=== PATIENT | female | born 1950 | race Caucasian/White ===

== ENCOUNTER 2018-05-12 11:35 | Emergency (ER) | payer MEDICARE, BC ==
--- NOTE | 2018-05-12 13:12 | EDM.PDOC ---
ED HPI GENERAL MEDICAL PROBLEM - General Chief Complaint: General Stated Complaint: LOW HEMOGLOBIN Time Seen by Provider: 05/12/18 12:46 Source of Information: Reports: Patient History Limitations: Reports: No Limitations - History of Present Illness INITIAL COMMENTS - FREE TEXT/NARRATIVE: 67-year-old female presents from the walk-in clinic for evaluation and treatment of a low hemoglobin. Patient was found to have a hemoglobin of 6.4 and sent over to us for further management and care. There patient reports in September she was in [place] and found to have a low hemoglobin. She was hospitalized. She had an EGD and colonoscopy. She states at that time she was told she had a hiatal hernia. She did not require any intervention. She is not on any blood thinners. She reports she did receive several units of blood while in [place]. She reports the end of September her hemoglobin was 12.2. She is not on any iron supplementation at this time. Patient reports current symptoms of fatigue and dyspnea on exertion. She denies any chest pain, nausea, vomiting, lightheadedness, dizziness or syncope. She denies any diarrhea. Reports her stools have been darker but has not appreciated any melena or hematochezia. She reports pain in her bilateral, states this is a chronic problem and they're questioning if she is developing some neuropathy. No swelling in her legs. Primary care provider is Elisa Daniel. Bilateral Lower Leg Pain Score (Numeric/FACES): 10 - Related Data Allergies Allergy/AdvReac Type Severity Reaction Status Date / Time Penicillins Allergy Rash Verified 02/27/16 11:45 Home Meds: Home Meds Phenytoin Sodium Extended [Dilantin] 330 mg PO BEDTIME 02/27/16 [History] Ferrous Sulfate 325 mg PO TID #30 tablet 05/12/18 [Rx] Past Medical History Cardiovascular History: Reports: Pacemaker Neurological History: Reports: Seizure Hematologic History: Reports: Blood Transfusion(s), Other (See Below) Social & Family History - Tobacco Use Smoking Status *Q: Never Smoker - Caffeine Use Caffeine Use: Reports: None - Recreational Drug Use Recreational Drug Use: No ED ROS GENERAL - Review of Systems Review Of Systems: See Below Cardiovascular: Reports: Dyspnea on Exertion. Denies: Chest Pain GI/Abdominal: Denies: Abdominal Pain, Bloody Stool, Diarrhea, Hematochezia, Melena, Nausea, Vomiting Musculoskeletal: Reports: Leg Pain (bilateral, chronic) Neurological: Denies: Dizziness, Syncope ED EXAM, GENERAL - Physical Exam Exam: See Below Exam Limited By: No Limitations General Appearance: Alert, WD/WN, No Apparent Distress Nose: Normal Inspection Throat/Mouth: Normal Inspection, Normal Voice, No Airway Compromise Respiratory/Chest: No Respiratory Distress, Lungs Clear, Normal Breath Sounds Cardiovascular: Normal Peripheral Pulses, Regular Rate, Rhythm, No Murmur GI/Abdominal: Normal Bowel Sounds, Soft, Non-Tender Rectal (Female) Exam: Normal Exam, Normal Rectal Tone, Heme + Stool (Weakly positive) Neurological: Alert, Oriented, Normal Cognition Psychiatric: Normal Affect, Normal Mood Skin Exam: Warm, Dry, Pallor (Slight, not terribly remarkable) EKG INTERPRETATION EKG Date: 05/12/18 Time: 13:22 Rhythm: NSR Rate (Beats/Min): 86 [place]: Normal P-Wave: Present QRS: Normal ST-T: Normal QT: Normal EKG Interpretation Comments: NSR at 86 bpm. No acute changes. Reviewed by myself and Dr. Rosen. Course - Vital Signs Last Recorded V/S: Last Vital Signs Temp 98.6 F 05/12/18 19:28 Pulse 90 05/12/18 17:51 Resp 18 05/12/18 19:28 BP 136/66 05/12/18 19:28 Pulse Ox 96 05/12/18 19:28 Orthostatic Blood Pressure [ 142/70 Standing] Orthostatic Blood Pressure [ 139/75 Sitting] Orthostatic Blood Pressure [ 136/64 Supine] - Orders/Labs/Meds Labs: Laboratory Tests 05/12/18 05/12/18 05/12/18 Range/Units 12:50 12:50 12:50 WBC 5.11 (3.98-10.04) K/mm3 RBC 3.17 L (3.98-5.22) M/mm3 Hgb 5.8 L* (11.2-15.7) gm/L Hct 21.5 L (34.1-44.9) % MCV 67.8 L (79.4-94.8) fl MCH 18.3 L (25.6-32.2) pg MCHC 27.0 L (32.2-35.5) g/dl RDW Std Deviation 44.2 (36.4-46.3) fL Plt Count 341 (182-369) K/mm3 MPV 8.7 L (9.4-12.3) fl Neut % (Auto) 53.9 (34.0-71.1) % Lymph % (Auto) 34.1 (19.3-51.7) % Island % (Auto) 10.2 (4.7-12.5) % Eos % (Auto) 0.8 (0.7-5.8) Baso % (Auto) 0.8 (0.1-1.2) % Neut # (Auto) 2.76 (1.56-6.13) K/mm3 Lymph # (Auto) 1.74 (1.18-3.74) K/mm3 Island # (Auto) 0.52 H (0.24-0.36) K/mm3 Eos # (Auto) 0.04 (0.04-0.36) K/mm3 Baso # (Auto) 0.04 (0.01-0.08) K/mm3 Manual Slide Review Abnormal smear Iron (50-170) ug/dL TIBC (100-400) ug/dL % Saturation (20-55) % Transferrin (202-364) mg/dL Ferritin (8-252) ng/ml Troponin I 0.018 (0.00-0.056) ng/mL Blood Type A POSITIVE Gel Antibody Screen Negative Crossmatch See Detail 05/12/18 05/12/18 Range/Units 12:50 12:50 WBC (3.98-10.04) K/mm3 RBC (3.98-5.22) M/mm3 Hgb (11.2-15.7) gm/L Hct (34.1-44.9) % MCV (79.4-94.8) fl MCH (25.6-32.2) pg MCHC (32.2-35.5) g/dl RDW Std Deviation (36.4-46.3) fL Plt Count (182-369) K/mm3 MPV (9.4-12.3) fl Neut % (Auto) (34.0-71.1) % Lymph % (Auto) (19.3-51.7) % Island % (Auto) (4.7-12.5) % Eos % (Auto) (0.7-5.8) Baso % (Auto) (0.1-1.2) % Neut # (Auto) (1.56-6.13) K/mm3 Lymph # (Auto) (1.18-3.74) K/mm3 Island # (Auto) (0.24-0.36) K/mm3 Eos # (Auto) (0.04-0.36) K/mm3 Baso # (Auto) (0.01-0.08) K/mm3 Manual Slide Review Iron 8 L (50-170) ug/dL TIBC 429 H (100-400) ug/dL % Saturation 2 L (20-55) % Transferrin 343 (202-364) mg/dL Ferritin 2 L (8-252) ng/ml Troponin I (0.00-0.056) ng/mL Blood Type Gel Antibody Screen Crossmatch Meds: Medications Discontinued Medications Generic Name Dose Route Start Last Admin Trade Name Freq PRN Reason Stop Dose Admin Sodium Chloride Confirm 05/12/18 14:49 05/12/18 15:17 Normal Saline Administered 05/12/18 14:50 Not Given Dose 500 mls @ as directed .ROUTE .STK-MED ONE - Re-Assessments/Exams Free Text/Narrative Re-Assessment/Exam: 05/12/18 18:26 Patient brought over labs from the [facility] and they were remarkable for the following, white blood cell count of 5.3, hemoglobin of 6.4 platelet count of 370. Magnesium 2.0. Glucose of 202, creatinine of 0.8, BUN of 11, sodium 142 , potassium 4.4 and a chloride of 107. Anion gap is 17. Liver enzymes are within normal limits. Patient's Hemoccult is weakly positive. She's not had any diarrhea her last bowel movement was earlier today. I do not feel that she is having acute GI bleed. she did have an EGD and colonoscopy in September in [place]. She is not on a blood thinners. She is slightly orthostatic with her heart rate increasing. I reviewed the labs and EKG with the patient. I feel that mostly she has more iron deficiency anemia and recommend we start her on iron supplementation. She then tells me that she has a family history of anemia. Reports her mother was chronically anemic and received frequent blood transfusions. She mentioned several family members who have struggled with anemia. At this point she received about 1-1/2 units. Will give her the remainder the half of the remaining unit. Plan to discharge her home. She is reporting at this time that the pain that is chronic in her legs is actually improving. I question if this is actually what is causing the pain rather than like a vitamin deficiency. I recommend a close follow-up in the clinic this week. She is agreeable to this. Discharge instructions as documented. Departure - Departure Time of Disposition: 18:33 Disposition: Home, Self-Care 01 Condition: Fair Clinical Impression: Anemia, Iron deficiency - Discharge Information *PRESCRIPTION DRUG MONITORING PROGRAM REVIEWED*: No *COPY OF PRESCRIPTION DRUG MONITORING REPORT IN PATIENT WOJCIECH: No Prescriptions: Ferrous Sulfate 325 mg PO TID #30 tablet Instructions: Blood Transfusion, Adult, [id number] Referrals: Elisa Daniel PA-C [Primary Care Provider] - Forms: ED Department Discharge Additional Instructions: Take the iron as prescribed. 1 tab 3 times a day. Recommend you take this with fluids containing vitamin C, such as oranges, as this will help increase absorption. Taking iron can be constipating. If you experience any of this recommended over- the-counter stool softener such as MiraLAX. Do not be alarmed if the iron makes her stools dark in color. Follow-up with your primary care provider this week for recheck of your symptoms. Make sure you're drinking plenty of fluids. Please return to the ER for symptoms change or worsen.
[2018-05-12] MEDS ORDERED: Sodium Chloride 0.9% 500 ML ONE (14:49)
[2018-05-12 19:29] VITALS: BP 136/66
== END 2018-05-12 19:34 | disposition home or self-care (01) ==
LOC: JD.ED 11:35
DX: D50.9 Iron deficiency anemia, unspecified (principal); Z88.0 Allergy status to penicillin
CPT/HCPCS: 36415; 36430; 82728; 83540; 84466; 84484; 85025; 86850; 86900; 86901; 86922; 93005; 99284; P9016; 93010

== ENCOUNTER 2020-06-22 17:36 | Emergency (ER) | payer MEDICARE, BC ==
--- NOTE | 2020-06-22 18:17 | EDM.PDOC ---
ED HPI GENERAL MEDICAL PROBLEM - General Chief Complaint: Fever Stated Complaint: FEVER,CHILLS,BODY ACHES Time Seen by Provider: 06/22/20 17:41 Source of Information: Reports: Patient History Limitations: Reports: No Limitations - History of Present Illness INITIAL COMMENTS - FREE TEXT/NARRATIVE: 69-year-old female presents to the emergency department complaints of fever, body aches, cough, shortness of breath, and decreased appetite. Patient states this started 8 days ago. She states she went out to shovel snow that morning and by the afternoon she had severe body aches and a sore throat. She states she laid in bed and could hardly move due to the body aches. She then developed fever and chills that evening and shortness of breath and cough. She states she has not had much of an appetite since then and has lost her sense of taste however she does still have smell. She denies any nausea vomiting or diarrhea associated with this. 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 - Related Data Allergies Allergy/AdvReac Type Severity Reaction Status Date / Time Penicillins Allergy Rash Verified 06/22/20 17:44 Home Meds: Home Meds Phenytoin Sodium Extended [Dilantin] 330 mg PO BEDTIME 02/27/16 [History] Ferrous Sulfate 325 mg PO TID #30 tablet 05/12/18 [Rx] Cholecalciferol (Vitamin D3) [Vitamin D] 5,000 unit PO DAILY 06/22/20 [History] Folic Acid 0.8 mg PO DAILY 06/22/20 [History] Vitamin B Complex 1 each PO DAILY 06/22/20 [History] Vitamin E 1,000 unit PO DAILY 06/22/20 [History] Past Medical History Cardiovascular History: Reports: Pacemaker Neurological History: Reports: Seizure Hematologic History: Reports: Anemia, Blood Transfusion(s), Other (See Below) - Past Surgical History Cardiovascular Surgical History: Reports: Pacer Social & Family History - Tobacco Use Tobacco Use Status *Q: Never Tobacco User - Caffeine Use Caffeine Use: Reports: None - Recreational Drug Use Recreational Drug Use: No ED ROS GENERAL - Review of Systems Review Of Systems: See Below Constitutional: Reports: Fever, Chills, Malaise, Decreased Appetite HEENT: Reports: No Symptoms, Glasses Respiratory: Reports: Shortness of Breath, Cough. Denies: Pleuritic Chest Pain, Sputum Cardiovascular: Reports: Dyspnea on Exertion. Denies: Chest Pain, Edema, Lightheadedness, Palpitations Endocrine: Reports: No Symptoms GI/Abdominal: Reports: No Symptoms. Denies: Abdominal Pain, Constipation, Diarrhea, Nausea, Vomiting : Reports: No Symptoms Musculoskeletal: Reports: Other (generalized body aches) Skin: Reports: No Symptoms Neurological: Reports: No Symptoms Psychiatric: Reports: No Symptoms Hematologic/Lymphatic: Reports: No Symptoms Immunologic: Reports: No Symptoms ED EXAM, GENERAL - Physical Exam Exam: See Below Exam Limited By: No Limitations General Appearance: Alert, WD/WN, No Apparent Distress Eye Exam: Bilateral Eye: PERRL Ears: Normal External Exam, Hearing Grossly Normal Nose: Normal Inspection Throat/Mouth: Normal Inspection, Normal Voice, No Airway Compromise Head: Atraumatic, Normocephalic Neck: Normal Inspection, Supple, Non-Tender, Full Range of Motion Respiratory/Chest: No Respiratory Distress, No Accessory Muscle Use, Chest Non- Tender, Crackles (left posterior lobe). No: Lungs Clear, Normal Breath Sounds Cardiovascular: Normal Peripheral Pulses, Regular Rate, Rhythm, No Edema, No Murmur Peripheral Pulses: 2+: Radial (L), Radial (R) GI/Abdominal: Normal Bowel Sounds, Soft, Non-Tender, No Distention (Female) Exam: Deferred Rectal (Female) Exam: Deferred Back Exam: Normal Inspection, Full Range of Motion Extremities: Normal Inspection, Normal Range of Motion, Non-Tender, No Pedal Edema, Normal Capillary Refill Neurological: Alert, Oriented, Normal Cognition Psychiatric: Normal Affect, Normal Mood Skin Exam: Warm, Dry, Intact, Normal Color, No Rash Lymphatic: No Adenopathy #1 Interpretation EKG Date: 06/22/20 Time: 18:29 Rhythm: NSR Rate (Beats/Min): [address]: Normal P-Wave: Present QRS: Normal ST-T: Normal QT: Normal EKG Interpretation Comments: Per Dr. Nguyễn interpretation: Sinus rhythm at 87, borderline left axis deviation, low voltage, extremity leads, abnormal R wave progression, late transition Course - Vital Signs Text/Narrative:: Upon assessment patient is febrile. She does admit to shortness of breath with exertion. And a cough without sputum production. Lung sounds have crackles noted to the left posterior lobe. I have ordered routine labs and a covid swab, cxr, ekg. Last Recorded V/S: Last Vital Signs Temp 100.2 F 06/22/20 20:49 Pulse 80 06/22/20 20:49 Resp 22 H 06/22/20 20:49 BP 117/67 06/22/20 20:49 Pulse Ox 92 L 06/22/20 20:49 - Orders/Labs/Meds Orders: Active Orders 24 hr Category Date Time Status EKG Documentation Completion [RC] STAT Care 06/22/20 18:06 Active Vital Signs [RC] Q15M Care 06/22/20 18:37 Active Chest 1V Frontal [CR] Stat Exams 06/22/20 18:07 Taken EPINEPHrine [Adrenalin] Med 06/22/20 18:37 Active 0.3 mg IM ONETIME PRN Famotidine [Pepcid] Med 06/22/20 18:37 Active 20 mg IVPUSH ONETIME PRN Sodium Chloride 0.9% [Saline Flush] Med 06/22/20 18:45 Active 30 ml FLUSH ASDIRECTED diphenhydrAMINE [Benadryl] Med 06/22/20 18:37 Active 50 mg IVPUSH ONETIME PRN methylPREDNISolone Sod Succ [Solu-MEDROL] Med 06/22/20 18:37 Active 125 mg IVPUSH ONETIME PRN Isolation [COMM] Routine Oth 06/22/20 18:06 Ordered Medication Orders Diphenhydramine HCl (Benadryl) 50 mg IVPUSH ONETIME PRN PRN Reason: hypersensitivity reaction Epinephrine HCl (Adrenalin) 0.3 mg IM ONETIME PRN PRN Reason: hypersensitivity reaction Famotidine (Pepcid) 20 mg IVPUSH ONETIME PRN PRN Reason: hypersensitivity reaction Methylprednisolone Sodium Succinate (Solu-Medrol) 125 mg IVPUSH ONETIME PRN PRN Reason: hypersensitivity reaction Sodium Chloride (Saline Flush) 30 ml FLUSH ASDIRECTED [facility] Admin: 06/22/20 20:51 Dose: 30 ml Documented by: JEFF Labs: Laboratory Tests 06/22/20 06/22/20 06/22/20 Range/Units 17:45 18:20 18:20 WBC 4.29 (3.98-10.04) K/mm3 RBC 4.60 (3.98-5.22) M/mm3 Hgb 13.9 D (11.2-15.7) gm/dl Hct 43.0 (34.1-44.9) % MCV 93.5 D (79.4-94.8) fl MCH 30.2 (25.6-32.2) pg MCHC 32.3 (32.2-35.5) g/dl RDW Std Deviation 42.8 (36.4-46.3) fL Plt Count 186 D (182-369) K/mm3 MPV 9.1 L (9.4-12.3) fl Neutrophils % (Manual) 70 H (40-60) % Band Neutrophils % 1 (0-10) % Lymphocytes % (Manual) 18 L (20-40) % Atypical Lymphs % 0 % Monocytes % (Manual) 11 H (2-10) % Eosinophils % (Manual) 0 L (0.7-5.8) % Basophils % (Manual) 0 L (0.1-1.2) Platelet Estimate Adequate RBC Morph Comment Normal PT (9.7-12.0) SECONDS INR APTT (21.7-31.4) SECONDS D-Dimer, Quantitative (0.19-0.50) mg/L Sodium (136-145) mEq/L Potassium (3.5-5.1) mEq/L Chloride (98-107) mEq/L Carbon Dioxide (21-32) mEq/L Anion Gap (5-15) BUN (7-18) mg/dL Creatinine (0.55-1.02) mg/dL Est Cr Clr Drug Dosing mL/min Estimated GFR (MDRD) (>60) mL/min BUN/Creatinine Ratio (14-18) Glucose (80-115) mg/dL Lactic Acid (0.4-2.0) mmol/L Calcium (8.5-10.1) mg/dL Magnesium (1.8-2.4) mg/dl Ferritin (8-252) ng/ml Total Bilirubin (0.2-1.0) mg/dL AST (15-37) U/L ALT (14-59) U/L Alkaline Phosphatase (46-116) U/L Lactate Dehydrogenase (81-234) U/L Troponin I (0.00-0.056) ng/mL C-Reactive Protein 12.8 H* (<1.0) mg/dL NT-Pro-B Natriuret Pep (0-125) pg/mL Total Protein (6.4-8.2) g/dl Albumin (3.4-5.0) g/dl Globulin gm/dL Albumin/Globulin Ratio (1-2) Influenza Type A RNA Negative (NEGATIVE) Influenza Type B RNA Negative (NEGATIVE) SARS-CoV-2 RNA (MILI) Positive H (NEGATIVE) 06/22/20 06/22/20 06/22/20 Range/Units 18:20 18:20 18:20 WBC (3.98-10.04) K/mm3 RBC (3.98-5.22) M/mm3 Hgb (11.2-15.7) gm/dl Hct (34.1-44.9) % MCV (79.4-94.8) fl MCH (25.6-32.2) pg MCHC (32.2-35.5) g/dl RDW Std Deviation (36.4-46.3) fL Plt Count (182-369) K/mm3 MPV (9.4-12.3) fl Neutrophils % (Manual) (40-60) % Band Neutrophils % (0-10) % Lymphocytes % (Manual) (20-40) % Atypical Lymphs % % Monocytes % (Manual) (2-10) % Eosinophils % (Manual) (0.7-5.8) % Basophils % (Manual) (0.1-1.2) Platelet Estimate RBC Morph Comment PT 10.5 (9.7-12.0) SECONDS INR 0.98 APTT 28.8 (21.7-31.4) SECONDS D-Dimer, Quantitative 0.71 H (0.19-0.50) mg/L Sodium 137 (136-145) mEq/L Potassium 4.1 (3.5-5.1) mEq/L Chloride 101 (98-107) mEq/L Carbon Dioxide 25 (21-32) mEq/L Anion Gap 15.1 H (5-15) BUN 15 (7-18) mg/dL Creatinine 0.8 (0.55-1.02) mg/dL Est Cr Clr Drug Dosing 51.75 mL/min Estimated GFR (MDRD) > 60 (>60) mL/min BUN/Creatinine Ratio 18.8 H (14-18) Glucose 122 H (80-115) mg/dL Lactic Acid (0.4-2.0) mmol/L Calcium 8.7 (8.5-10.1) mg/dL Magnesium 2.1 (1.8-2.4) mg/dl Ferritin (8-252) ng/ml Total Bilirubin 0.3 (0.2-1.0) mg/dL AST 116 H (15-37) U/L ALT 108 H (14-59) U/L Alkaline Phosphatase 97 (46-116) U/L Lactate Dehydrogenase 335 H (81-234) U/L Troponin I 0.023 (0.00-0.056) ng/mL C-Reactive Protein (<1.0) mg/dL NT-Pro-B Natriuret Pep 108 (0-125) pg/mL Total Protein 7.3 (6.4-8.2) g/dl Albumin 3.1 L (3.4-5.0) g/dl Globulin 4.2 gm/dL Albumin/Globulin Ratio 0.7 L (1-2) Influenza Type A RNA (NEGATIVE) Influenza Type B RNA (NEGATIVE) SARS-CoV-2 RNA (MILI) (NEGATIVE) 06/22/20 06/22/20 Range/Units 18:20 18:20 WBC (3.98-10.04) K/mm3 RBC (3.98-5.22) M/mm3 Hgb (11.2-15.7) gm/dl Hct (34.1-44.9) % MCV (79.4-94.8) fl MCH (25.6-32.2) pg MCHC (32.2-35.5) g/dl RDW Std Deviation (36.4-46.3) fL Plt Count (182-369) K/mm3 MPV (9.4-12.3) fl Neutrophils % (Manual) (40-60) % Band Neutrophils % (0-10) % Lymphocytes % (Manual) (20-40) % Atypical Lymphs % % Monocytes % (Manual) (2-10) % Eosinophils % (Manual) (0.7-5.8) % Basophils % (Manual) (0.1-1.2) Platelet Estimate RBC Morph Comment PT (9.7-12.0) SECONDS INR APTT (21.7-31.4) SECONDS D-Dimer, Quantitative (0.19-0.50) mg/L Sodium (136-145) mEq/L Potassium (3.5-5.1) mEq/L Chloride (98-107) mEq/L Carbon Dioxide (21-32) mEq/L Anion Gap (5-15) BUN (7-18) mg/dL Creatinine (0.55-1.02) mg/dL Est Cr Clr Drug Dosing mL/min Estimated GFR (MDRD) (>60) mL/min BUN/Creatinine Ratio (14-18) Glucose (80-115) mg/dL Lactic Acid 0.9 (0.4-2.0) mmol/L Calcium (8.5-10.1) mg/dL Magnesium (1.8-2.4) mg/dl Ferritin 279 H (8-252) ng/ml Total Bilirubin (0.2-1.0) mg/dL AST (15-37) U/L ALT (14-59) U/L Alkaline Phosphatase (46-116) U/L Lactate Dehydrogenase (81-234) U/L Troponin I (0.00-0.056) ng/mL C-Reactive Protein (<1.0) mg/dL NT-Pro-B Natriuret Pep (0-125) pg/mL Total Protein (6.4-8.2) g/dl Albumin (3.4-5.0) g/dl Globulin gm/dL Albumin/Globulin Ratio (1-2) Influenza Type A RNA (NEGATIVE) Influenza Type B RNA (NEGATIVE) SARS-CoV-2 RNA (MILI) (NEGATIVE) Meds: Medications Generic Name Dose Route Start Last Admin Trade Name Freq PRN Reason Stop Dose Admin Diphenhydramine HCl 50 mg 06/22/20 18:37 Benadryl IVPUSH ONETIME PRN hypersensitivity reaction Epinephrine HCl 0.3 mg 06/22/20 18:37 Adrenalin IM ONETIME PRN hypersensitivity reaction Famotidine 20 mg 06/22/20 18:37 Pepcid IVPUSH ONETIME PRN hypersensitivity reaction Methylprednisolone Sodium Succinate 125 mg 06/22/20 18:37 Solu-Medrol IVPUSH ONETIME PRN hypersensitivity reaction Sodium Chloride 30 ml 06/22/20 18:45 06/22/20 20:51 Saline Flush FLUSH 30 ml ASDIRECTED JUAN Administration Discontinued Medications Generic Name Dose Route Start Last Admin Trade Name Abhijit PRN Reason Stop Dose Admin Acetaminophen 650 mg 06/22/20 18:19 06/22/20 18:29 Tylenol PO 06/22/20 18:20 650 mg NOW ONE Administration Bamlanivimab 700 mg/ Sodium 270 mls @ 270 mls/hr 06/22/20 18:37 06/22/20 19:40 Chloride IV 06/22/20 18:38 270 mls/hr ONETIME ONE Administration Protocol - Radiology Interpretation Free Text/Narrative:: Per radiologist Impression: 1. Patchy areas of increased density. Findings most likely represent areas of pneumonia. Please rule out COVID disease. 2. Other findings as noted above which are chronic. - Re-Assessments/Exams Free Text/Narrative Re-Assessment/Exam: 06/22/20 18:45 Patient's Covid swab is positive. Still waiting for routine labs to come back however patient's O2 sats are 92% on room air. I have spoken with her to provide information about Bamlanivimab treatment for herself. I offered her the patient and caregiver EUA Bamlanivimab fact sheet. He stated the drug has been approved by an emergency use authorization process and has not fully been FDA reviewed or approved. The patient meets the EUA requirements. She does have a history of anemia and pacemaker placement. She is over the age of 65. I discussed there are other potential treatment options that are currently not FDA approved to treat COVID-19. Offered opportunity to ask questions and all questions were answered. The patient voiced understanding and agreed to proceed with treatment for herself. 06/22/20 19:43 Labs reveal a WBC of 4.29, hemoglobin 13.9, hematocrit 43.0, D-dimer 0.71, sodium 137, potassium 4.1, anion gap 15.1, BUN 15, creatinine 0.8, glucose 122, lactic acid 0.9, magnesium 2.1, ferritin 279, AST 116, ALT 108, LDH 335, 6 troponin 0 0.023, C-reactive protein 12.8, Elevation in D-dimer, ferritin, liver enzymes, LDH, troponin and C-reactive protein all likely due to inflammatory response of Covid. I am not going to do a CTA on this patient as her O2 saturations are 92% on room air and she did test positive for Covid. 06/22/20 20:55 Bamlanivimab infusion is complete. Will monitor her for about the next hour. 06/22/20 20:[address] Orta preliminary Impression: 1. Patchy areas of increased density. Findings most likely represent areas of pneumonia. Please rule out COVID disease. 2. Other findings as noted above which are chronic. Portable chest x-ray 1 view V rad impression: 1. Atelectatic and/or early infiltrative changes noted within both lung bases. 2. Trace left pleural effusion. Departure - Departure Time of Disposition: 21:45 Disposition: Home, Self-Care 01 Condition: Fair Clinical Impression: COVID-19 - Discharge Information Instructions: COVID-19 Frequently Asked Questions, Prone Position Therapy, COVID-19: Quarantine vs. Isolation - [facility] Referrals: Elisa Daniel PA-C [Primary Care Provider] - Forms: ED Department Discharge Additional Instructions: You were seen in the emergency department today with complaints of shortness of breath, cough, loss of taste, decreased appetite and general malaise. Lab tests were completed and you did test positive for Covid. Your chest x-ray showed also showed pneumonia in both lungs however this is likely viral and due to Covid. Your oxygen levels have been greater than 90% she will not not be treated for pneumonia at this time. You were given Bamlanivimab, the monoclonal antibody approved for emergency use for COVID-19. This medication should shorten the duration and severity of the illness. Go home and rest. May take Tylenol or ibuprofen for discomfort. Increase your fluid intake. Eat frequent small meals. If you become significantly short of breath or your condition worsens or changes, do not hesitate to return to the emergency department. Sepsis Event Note (ED) - Evaluation Sepsis Screening Result: Possible Sepsis Risk - Focused Exam Vital Signs: Vital Signs Temp Pulse Resp BP Pulse Ox 06/22/20 20:49 100.2 F 80 22 H 117/67 92 L 06/22/20 20:15 100.1 F 75 23 H 131/65 92 L 06/22/20 20:00 100.1 F 79 22 H 132/63 91 L 06/22/20 19:45 100.2 F 80 20 131/60 91 L 06/22/20 17:40 101.6 F H 93 18 160/60 H 92 L - My Orders Last 24 Hours: My Active Orders 06/22/20 18:06 EKG Documentation Completion [RC] STAT Isolation [COMM] Routine 06/22/20 18:07 Chest 1V Frontal [CR] Stat 06/22/20 18:37 Vital Signs [RC] Q15M EPINEPHrine [Adrenalin] 0.3 mg IM ONETIME PRN Famotidine [Pepcid] 20 mg IVPUSH ONETIME PRN diphenhydrAMINE [Benadryl] 50 mg IVPUSH ONETIME PRN methylPREDNISolone Sod Succ [Solu-MEDROL] 125 mg IVPUSH ONETIME PRN 06/22/20 18:45 Sodium Chloride 0.9% [Saline Flush] 30 ml FLUSH ASDIRECTED - Assessment/Plan Last 24 Hours: My Active Orders 06/22/20 18:06 EKG Documentation Completion [RC] STAT Isolation [COMM] Routine 06/22/20 18:07 Chest 1V Frontal [CR] Stat 06/22/20 18:37 Vital Signs [RC] Q15M EPINEPHrine [Adrenalin] 0.3 mg IM ONETIME PRN Famotidine [Pepcid] 20 mg IVPUSH ONETIME PRN diphenhydrAMINE [Benadryl] 50 mg IVPUSH ONETIME PRN methylPREDNISolone Sod Succ [Solu-MEDROL] 125 mg IVPUSH ONETIME PRN 06/22/20 18:45 Sodium Chloride 0.9% [Saline Flush] 30 ml FLUSH ASDIRECTED
[2020-06-22] MEDS ORDERED: Acetaminophen 325 MG Tab PO ONE (18:19)
[2020-06-22 18:36] LABS: CORONAVIRUS COVID-19 NAA POSITIVE (NEGATIVE)
[2020-06-22] MEDS ORDERED: EPINEPHrine 1 MG/ML SDV IM PRN (18:37)
[2020-06-22] MEDS ORDERED: methylPREDNISolone Sodium Succinate 125 MG/2 ML SDV IVPUSH PRN (18:37)
[2020-06-22] MEDS ORDERED: Famotidine 20 MG/2 ML SDV IVPUSH PRN (18:37)
[2020-06-22] MEDS ORDERED: diphenhydrAMINE 50 MG/ML SDV IVPUSH PRN (18:37)
[2020-06-22] MEDS ORDERED: Sodium Chloride 0.9% 10 ML Syringe FLUSH SCH (18:45)
[2020-06-22 20:50] VITALS: BP 117/67; PULSE 80
--- NOTE | 2020-06-23 09:19 | CR ---
Chest: Portable view of the chest was obtained. Comparison: No previous chest imaging is available. Patchy areas of increased density are seen peripherally within the right lung as well as within the left lower lung. Heart size appears within normal limits for portable technique. Tortuous thoracic aorta seen. Pacemaker is noted. Impression: 1. Patchy areas of increased density. Findings most likely represent areas of pneumonia. Please rule out COVID disease. 2. Other findings as noted above which are chronic. Diagnostic code #3 MTDD
== END 2020-06-22 21:38 | disposition home or self-care (01) ==
LOC: JD.ED 17:36
DX: U07.1 COVID-19 (principal); Z88.0 Allergy status to penicillin; R56.9 Unspecified convulsions; Z79.899 Other long term (current) drug therapy
CPT/HCPCS: 0240U; 36415; 71045; 80053; 82728; 83605; 83615; 83735; 83880; 84484; 85007; 85027; 85379; 85610; 85730; 86140; 93005; 99285; A9270; J7050; M0239; Q0239; 93010; 99284

== ENCOUNTER 2020-06-23 17:23 | Inpatient (IN) | payer MEDICARE, BC ==
[2020-06-23] MEDS ORDERED: Sodium Chloride 0.9% 10 ML Syringe FLUSH PRN (17:37)
[2020-06-23] MEDS ORDERED: Dexamethasone 10 MG/ML SDV IVPUSH ONE (17:50)
[2020-06-23] MEDS ORDERED: Acetaminophen 325 MG Tab PO ONE (17:50)
--- NOTE | 2020-06-23 17:57 | EDM.PDOC ---
ED HPI GENERAL MEDICAL PROBLEM - General Chief Complaint: Respiratory Problem Stated Complaint: SOB/COVID + Time Seen by Provider: 06/23/20 17:36 Source of Information: Reports: Patient, Old Records (visit from yesterday), RN Notes Reviewed (Vital signs: Heart rate 96 bpm, temperature is 101F, respiratory rate is 20 breaths/min, blood pressure is 141/67 O2 sats were 84% on room air.) History Limitations: Reports: No Limitations - History of Present Illness INITIAL COMMENTS - FREE TEXT/NARRATIVE: Patient is a 69-year-old female who presents to the ED for her ongoing COVID-19 illness. Patient was diagnosed with COVID-19 yesterday, received bamlanivimab treatment, and was discharged home as she was doing well. Patient notes that over the last day she is not feeling much better, she is complaining of increasing shortness of breath, worsening fatigue, the patient's daughter did tell the triage nurse in the waiting room that the patient does not even really remember being here yesterday. Patient has been overly lethargic, and she admits that she does not really remember much in the past few days. Notes from yesterday demonstrates she is on day 9 of illness. Patient has a history of antoine placed and seizures but denies any other past medical history. Patient does still have a fever at home, and again felt winded so that is what brought her to the ER. Patient's O2 sats at time of triage were 84% on room air, and temperature is 101 F, patient was placed on 2 L via nasal cannula, this did increase her O2 sats to 96%. Patient's primary care provider is Elisa Daniel. - Related Data Allergies Allergy/AdvReac Type Severity Reaction Status Date / Time Penicillins Allergy Rash Verified 06/23/20 20:51 Home Meds: Home Meds Phenytoin Sodium Extended [Dilantin] 330 mg PO BEDTIME 02/27/16 [History] Ferrous Sulfate 325 mg PO TID #30 tablet 05/12/18 [Rx] Cholecalciferol (Vitamin D3) [Vitamin D] 5,000 unit PO DAILY 06/22/20 [History] Folic Acid 1 mg PO DAILY 06/22/20 [History] Vitamin B Complex 1 each PO DAILY 06/22/20 [History] Vitamin E 1,000 unit PO DAILY 06/22/20 [History] Past Medical History Cardiovascular History: Reports: Pacemaker Neurological History: Reports: Seizure Hematologic History: Reports: Anemia, Blood Transfusion(s), Other (See Below) - Past Surgical History Cardiovascular Surgical History: Reports: Pacer Social & Family History - Tobacco Use Tobacco Use Status *Q: Never Tobacco User - Caffeine Use Caffeine Use: Reports: None - Recreational Drug Use Recreational Drug Use: No ED ROS GENERAL - Review of Systems Review Of Systems: Comprehensive ROS is negative, except as noted in HPI. ED EXAM, GENERAL - Physical Exam Exam: See Below Exam Limited By: No Limitations General Appearance: Alert, WD/WN, No Apparent Distress (pt looks generally unwell) Respiratory/Chest: No Respiratory Distress, Lungs Clear, Normal Breath Sounds, No Accessory Muscle Use, Chest Non-Tender Cardiovascular: Normal Peripheral Pulses, Regular Rate, Rhythm, No Edema Peripheral Pulses: 2+: Radial (L), Radial (R) Extremities: Normal Inspection, Normal Capillary Refill Neurological: Alert, Oriented, Normal Cognition, No Motor/Sensory Deficits Psychiatric: Normal Affect, Normal Mood Skin Exam: Warm, Dry, Intact, Normal Color, No Rash #1 Interpretation EKG Date: 06/23/20 Time: 17:38 Rhythm: NSR Rate (Beats/Min): 94 [place]: LAD-Left [place] Deviation (-6 ) P-Wave: Present QRS: Normal ST-T: Normal QT: Normal Comparison: No Change EKG Interpretation Comments: No obvious ischemia or acute ST changes noted, reviewed by myself and Dr. Wyman. Course - Vital Signs Last Recorded V/S: Last Vital Signs Temp 98.4 F 06/26/20 15:33 Pulse 80 06/26/20 15:33 Resp 16 06/26/20 15:33 BP 132/68 06/26/20 15:33 Pulse Ox 91 L 06/26/20 21:43 - Orders/Labs/Meds Orders: Medication Orders Acetaminophen (Tylenol) 650 mg PO Q4H PRN PRN Reason: Pain/Fever Last Admin: 06/25/20 21:46 Dose: 650 mg Documented by: ROSY Hydrocodone Bitart/Acetaminophen ([place] 325-5 Mg) 1 tab PO Q4H PRN PRN Reason: Pain (moderate 4-6) Albuterol/Ipratropium (Duoneb 3.0-0.5 Mg/3 Ml) 3 ml NEB Q4H PRN PRN Reason: Shortness Of Breath/wheezing Cholecalciferol (Vitamin D3) 5,000 unit PO DAILY [facility] Last Admin: 06/26/20 09:13 Dose: 5,000 unit Documented by: Admin: 06/25/20 09:14 Dose: 5,000 unit Documented by: Admin: 06/24/20 09:13 Dose: 5,000 unit Documented by: LEI Dexamethasone (Dexamethasone) 6 mg PO DAILY [facility] Stop: 07/02/20 09:01 Last Admin: 06/26/20 09:13 Dose: 6 mg Documented by: Admin: 06/25/20 09:14 Dose: 6 mg Documented by: Admin: 06/24/20 09:12 Dose: 6 mg Documented by: LEI Enoxaparin Sodium (Lovenox) 40 mg SUBCUT DAILY [facility] Last Admin: 06/26/20 09:13 Dose: 40 mg Documented by: Admin: 06/25/20 09:15 Dose: 40 mg Documented by: Admin: 06/24/20 09:12 Dose: 40 mg Documented by: LEI Famotidine (Pepcid) 20 mg PO BID [facility] Last Admin: 06/26/20 22:02 Dose: 20 mg Documented by: Admin: 06/26/20 09:13 Dose: 20 mg Documented by: Admin: 06/25/20 21:17 Dose: 20 mg Documented by: Admin: 06/25/20 09:14 Dose: 20 mg Documented by: Admin: 06/24/20 20:24 Dose: 20 mg Documented by: Admin: 06/24/20 09:13 Dose: 20 mg Documented by: LEI Ferrous Sulfate (Ferrous Sulfate) 324 mg PO TID [facility] Last Admin: 06/26/20 22:02 Dose: 324 mg Documented by: Admin: 06/26/20 16:02 Dose: 324 mg Documented by: Admin: 06/26/20 09:13 Dose: 324 mg Documented by: Admin: 06/25/20 21:12 Dose: 324 mg Documented by: Admin: 06/25/20 15:35 Dose: 324 mg Documented by: Admin: 06/25/20 09:14 Dose: 324 mg Documented by: Admin: 06/24/20 20:26 Dose: 324 mg Documented by: Admin: 06/24/20 15:05 Dose: 324 mg Documented by: Admin: 06/24/20 09:12 Dose: 324 mg Documented by: LEI Folic Acid (Folic Acid) 1 mg PO BEDTIME JUAN Last Admin: 06/26/20 22:02 Dose: 1 mg Documented by: Admin: 06/25/20 21:13 Dose: 1 mg Documented by: ROSY Guaifenesin/Phenylephrine HCl (Robitussin Dm) 10 ml PO Q4H PRN PRN Reason: Cough Hydromorphone HCl (Dilaudid) 0.25 mg IVPUSH Q2H PRN PRN Reason: Pain (severe 7-10) Promethazine HCl 12.5 mg/ (Sodium Chloride) 50.5 mls @ 100 mls/hr IV Q6H PRN PRN Reason: Nausea/Vomiting Azithromycin 500 mg/ Sodium (Chloride) 250 mls @ 250 mls/hr IV Q24H JUAN Stop: 06/27/20 22:59 Last Admin: 06/26/20 21:57 Dose: 250 mls/hr Documented by: Infusion: 06/25/20 22:49 Dose: 250 mls/hr Documented by: Admin: 06/25/20 21:49 Dose: 250 mls/hr Documented by: Infusion: 06/24/20 23:50 Dose: 250 mls/hr Documented by: Admin: 06/24/20 22:50 Dose: 250 mls/hr Documented by: ROXANA Ceftriaxone Sodium 1 gm/ (Sodium Chloride) 100 mls @ 200 mls/hr IV Q24H JUAN Stop: 06/28/20 22:01 Last Admin: 06/26/20 21:57 Dose: 200 mls/hr Documented by: Infusion: 06/25/20 21:38 Dose: 200 mls/hr Documented by: Admin: 06/25/20 21:08 Dose: 200 mls/hr Documented by: Infusion: 06/24/20 22:42 Dose: 200 mls/hr Documented by: Admin: 06/24/20 22:12 Dose: 200 mls/hr Documented by: ROXANA Ondansetron HCl (Zofran) 4 mg IV Q6H PRN PRN Reason: Nausea/Vomiting Phenytoin Sodium (Phenytoin) 300 mg PO BEDTIME [facility] Last Admin: 06/26/20 22:00 Dose: 300 mg Documented by: Admin: 06/25/20 21:14 Dose: 300 mg Documented by: Admin: 06/24/20 20:26 Dose: 300 mg Documented by: ROXANA Phenytoin Sodium (Dilantin) 30 mg PO BEDTIME [facility] Last Admin: 06/26/20 22:01 Dose: 30 mg Documented by: Admin: 06/25/20 21:13 Dose: 30 mg Documented by: Admin: 06/24/20 20:24 Dose: 30 mg Documented by: ROXANA Polyethylene Glycol (Miralax) 17 gm PO DAILY PRN PRN Reason: Constipation Last Admin: 06/25/20 09:18 Dose: 17 gm Documented by: Admin: 06/24/20 15:05 Dose: 17 gm Documented by: LEI Senna/Docusate Sodium (Senna Plus) 1 tab PO DAILY [facility] Sodium Chloride (Saline Flush) 10 ml FLUSH ASDIRECTED PRN PRN Reason: Keep Vein Open Last Admin: 06/23/20 17:44 Dose: 10 ml Documented by: PAM Vitamin B Complex/Vitamin C (Super B With Vitamin C) 1 cap PO DAILY [facility] Last Admin: 06/26/20 09:13 Dose: 1 cap Documented by: Admin: 06/25/20 09:14 Dose: 1 cap Documented by: Admin: 06/24/20 09:13 Dose: 1 cap Documented by: LEI Vitamin E (Vitamin E) 800 units PO DAILY [facility] Last Admin: 06/26/20 09:12 Dose: 800 units Documented by: Admin: 06/25/20 09:14 Dose: 800 units Documented by: Admin: 06/24/20 09:13 Dose: 800 units Documented by: LEI Zinc Sulfate (Zincate) 220 mg PO DAILY [facility] Last Admin: 06/26/20 09:13 Dose: 220 mg Documented by: Admin: 06/25/20 09:14 Dose: 220 mg Documented by: Admin: 06/24/20 09:12 Dose: 220 mg Documented by: LEI Labs: Laboratory Tests 06/23/20 06/23/20 06/23/20 Range/Units 17:33 17:33 17:33 WBC 6.01 (3.98-10.04) K/mm3 RBC 4.70 (3.98-5.22) M/mm3 Hgb 14.2 (11.2-15.7) gm/dl Hct 43.6 (34.1-44.9) % MCV 92.8 (79.4-94.8) fl MCH 30.2 (25.6-32.2) pg MCHC 32.6 (32.2-35.5) g/dl RDW Std Deviation 42.2 (36.4-46.3) fL Plt Count 209 (182-369) K/mm3 MPV 9.4 (9.4-12.3) fl Neutrophils % (Manual) 46 (40-60) % Band Neutrophils % 0 (0-10) % Lymphocytes % (Manual) 44 H (20-40) % Atypical Lymphs % 0 % Monocytes % (Manual) 10 (2-10) % Eosinophils % (Manual) 0 L (0.7-5.8) % Basophils % (Manual) 0 L (0.1-1.2) Platelet Estimate Adequate RBC Morph Comment Normal ESR (0-20) mm/hr D-Dimer, Quantitative (0.19-0.50) mg/L Puncture Site ABG pH (7.35-7.45) ABG pCO2 (35.0-45.0) mmHg ABG pO2 (80.0-100.0) mmHg ABG HCO3 (22.0-26.0) meq/L ABG O2 Saturation (96.0-97.0) % ABG Base Excess (-2-2.0) Burton Test O2 Delivery Device Oxygen Flow Rate FiO2 (21.00-100.00) % Sodium 136 (136-145) mEq/L Potassium 3.8 (3.5-5.1) mEq/L Chloride 99 (98-107) mEq/L Carbon Dioxide 24 (21-32) mEq/L Anion Gap 16.8 H (5-15) BUN 11 (7-18) mg/dL Creatinine 1.0 (0.55-1.02) mg/dL Est Cr Clr Drug Dosing 41.40 mL/min Estimated GFR (MDRD) 55 (>60) mL/min BUN/Creatinine Ratio 11.0 L (14-18) Glucose 125 H (80-115) mg/dL Lactic Acid 1.5 (0.4-2.0) mmol/L Calcium 8.9 (8.5-10.1) mg/dL Total Bilirubin 0.4 (0.2-1.0) mg/dL AST 78 H (15-37) U/L ALT 85 H (14-59) U/L Alkaline Phosphatase 96 (46-116) U/L Troponin I (0.00-0.056) ng/mL C-Reactive Protein 18.1 H* (<1.0) mg/dL NT-Pro-B Natriuret Pep (0-125) pg/mL Total Protein 7.5 (6.4-8.2) g/dl Albumin 3.1 L (3.4-5.0) g/dl Globulin 4.4 gm/dL Albumin/Globulin Ratio 0.7 L (1-2) Urine Color (Yellow) Urine Appearance (Clear) Urine pH (5.0-8.0) Ur Specific [place] (1.005-1.030) Urine Protein (Negative) Urine Glucose (UA) (Negative) Urine Ketones (Negative) Urine Occult Blood (Negative) Urine Nitrite (Negative) Urine Bilirubin (Negative) Urine Urobilinogen (0.2-1.0) Ur Leukocyte Esterase (Negative) Urine RBC (0-5) /hpf Urine WBC (0-5) /hpf Ur Squamous Epith Cells (0-5) /hpf Urine Bacteria (FEW) /hpf Urine Mucus (FEW) /hpf 06/23/20 06/23/20 06/23/20 Range/Units 17:33 17:36 17:43 WBC (3.98-10.04) K/mm3 RBC (3.98-5.22) M/mm3 Hgb (11.2-15.7) gm/dl Hct (34.1-44.9) % MCV (79.4-94.8) fl MCH (25.6-32.2) pg MCHC (32.2-35.5) g/dl RDW Std Deviation (36.4-46.3) fL Plt Count (182-369) K/mm3 MPV (9.4-12.3) fl Neutrophils % (Manual) (40-60) % Band Neutrophils % (0-10) % Lymphocytes % (Manual) (20-40) % Atypical Lymphs % % Monocytes % (Manual) (2-10) % Eosinophils % (Manual) (0.7-5.8) % Basophils % (Manual) (0.1-1.2) Platelet Estimate RBC Morph Comment ESR (0-20) mm/hr D-Dimer, Quantitative (0.19-0.50) mg/L Puncture Site Rt radial ABG pH 7.43 (7.35-7.45) ABG pCO2 34.3 L (35.0-45.0) mmHg ABG pO2 101.0 H (80.0-100.0) mmHg ABG HCO3 22.3 (22.0-26.0) meq/L ABG O2 Saturation 98.1 H (96.0-97.0) % ABG Base Excess -0.9 (-2-2.0) Burton Test Positive O2 Delivery Device Nasal cannula Oxygen Flow Rate 1.5 FiO2 0.00 L (21.00-100.00) % Sodium (136-145) mEq/L Potassium (3.5-5.1) mEq/L Chloride (98-107) mEq/L Carbon Dioxide (21-32) mEq/L Anion Gap (5-15) BUN (7-18) mg/dL Creatinine (0.55-1.02) mg/dL Est Cr Clr Drug Dosing mL/min Estimated GFR (MDRD) (>60) mL/min BUN/Creatinine Ratio (14-18) Glucose (80-115) mg/dL Lactic Acid (0.4-2.0) mmol/L Calcium (8.5-10.1) mg/dL Total Bilirubin (0.2-1.0) mg/dL AST (15-37) U/L ALT (14-59) U/L Alkaline Phosphatase (46-116) U/L Troponin I (0.00-0.056) ng/mL C-Reactive Protein (<1.0) mg/dL NT-Pro-B Natriuret Pep 446 H (0-125) pg/mL Total Protein (6.4-8.2) g/dl Albumin (3.4-5.0) g/dl Globulin gm/dL Albumin/Globulin Ratio (1-2) Urine Color Yellow (Yellow) Urine Appearance Clear (Clear) Urine pH 5.5 (5.0-8.0) Ur Specific [place] 1.015 (1.005-1.030) Urine Protein 1+ H (Negative) Urine Glucose (UA) Negative (Negative) Urine Ketones Trace H (Negative) Urine Occult Blood Negative (Negative) Urine Nitrite Negative (Negative) Urine Bilirubin Negative (Negative) Urine Urobilinogen 0.2 (0.2-1.0) Ur Leukocyte Esterase Negative (Negative) Urine RBC 0-5 (0-5) /hpf Urine WBC 0-5 (0-5) /hpf Ur Squamous Epith Cells 0-5 (0-5) /hpf Urine Bacteria Moderate H (FEW) /hpf Urine Mucus Few (FEW) /hpf 06/23/20 06/23/20 06/23/20 Range/Units 18:05 18:05 18:05 WBC (3.98-10.04) K/mm3 RBC (3.98-5.22) M/mm3 Hgb (11.2-15.7) gm/dl Hct (34.1-44.9) % MCV (79.4-94.8) fl MCH (25.6-32.2) pg MCHC (32.2-35.5) g/dl RDW Std Deviation (36.4-46.3) fL Plt Count (182-369) K/mm3 MPV (9.4-12.3) fl Neutrophils % (Manual) (40-60) % Band Neutrophils % (0-10) % Lymphocytes % (Manual) (20-40) % Atypical Lymphs % % Monocytes % (Manual) (2-10) % Eosinophils % (Manual) (0.7-5.8) % Basophils % (Manual) (0.1-1.2) Platelet Estimate RBC Morph Comment ESR 49 H (0-20) mm/hr D-Dimer, Quantitative 0.71 H (0.19-0.50) mg/L Puncture Site ABG pH (7.35-7.45) ABG pCO2 (35.0-45.0) mmHg ABG pO2 (80.0-100.0) mmHg ABG HCO3 (22.0-26.0) meq/L ABG O2 Saturation (96.0-97.0) % ABG Base Excess (-2-2.0) Burton Test O2 Delivery Device Oxygen Flow Rate FiO2 (21.00-100.00) % Sodium (136-145) mEq/L Potassium (3.5-5.1) mEq/L Chloride (98-107) mEq/L Carbon Dioxide (21-32) mEq/L Anion Gap (5-15) BUN (7-18) mg/dL Creatinine (0.55-1.02) mg/dL Est Cr Clr Drug Dosing mL/min Estimated GFR (MDRD) (>60) mL/min BUN/Creatinine Ratio (14-18) Glucose (80-115) mg/dL Lactic Acid (0.4-2.0) mmol/L Calcium (8.5-10.1) mg/dL Total Bilirubin (0.2-1.0) mg/dL AST (15-37) U/L ALT (14-59) U/L Alkaline Phosphatase (46-116) U/L Troponin I 0.025 (0.00-0.056) ng/mL C-Reactive Protein (<1.0) mg/dL NT-Pro-B Natriuret Pep (0-125) pg/mL Total Protein (6.4-8.2) g/dl Albumin (3.4-5.0) g/dl Globulin gm/dL Albumin/Globulin Ratio (1-2) Urine Color (Yellow) Urine Appearance (Clear) Urine pH (5.0-8.0) Ur Specific [place] (1.005-1.030) Urine Protein (Negative) Urine Glucose (UA) (Negative) Urine Ketones (Negative) Urine Occult Blood (Negative) Urine Nitrite (Negative) Urine Bilirubin (Negative) Urine Urobilinogen (0.2-1.0) Ur Leukocyte Esterase (Negative) Urine RBC (0-5) /hpf Urine WBC (0-5) /hpf Ur Squamous Epith Cells (0-5) /hpf Urine Bacteria (FEW) /hpf Urine Mucus (FEW) /hpf Meds: Medications Generic Name Dose Route Start Last Admin Trade Name Freq PRN Reason Stop Dose Admin Acetaminophen 650 mg 0218/21 21:36 06/25/20 21:46 Tylenol PO 650 mg Q4H PRN Administration Pain/Fever Hydrocodone Bitart/Acetaminophen 1 tab 06/23/20 21:22 [place]olia 325-5 Mg PO Q4H PRN Pain (moderate 4-6) Albuterol/Ipratropium 3 ml 06/23/20 21:22 Duoneb 3.0-0.5 Mg/3 Ml NEB Q4H PRN Shortness Of Breath/wheezing Cholecalciferol 5,000 unit 06/24/20 09:00 06/26/20 09:13 Vitamin D3 PO 5,000 unit DAILY JUAN Administration Dexamethasone 6 mg 06/24/20 09:00 06/26/20 09:13 Dexamethasone PO 07/02/20 09:01 6 mg DAILY JUAN Administration Enoxaparin Sodium 40 mg 06/24/20 09:00 06/26/20 09:13 Lovenox SUBCUT 40 mg DAILY JUAN Administration Famotidine 20 mg 06/24/20 09:00 06/26/20 22:02 Pepcid PO 20 mg BID JUAN Administration Ferrous Sulfate 324 mg 06/24/20 09:00 06/26/20 22:02 Ferrous Sulfate PO 324 mg TID JUAN Administration Folic Acid 1 mg 06/25/20 21:00 06/26/20 22:02 Folic Acid PO 1 mg BEDTIME JUAN Administration Guaifenesin/Phenylephrine HCl 10 ml 06/23/20 21:30 Robitussin Dm PO Q4H PRN Cough Hydromorphone HCl 0.25 mg 06/23/20 21:22 Dilaudid IVPUSH Q2H PRN Pain (severe 7-10) Promethazine HCl 12.5 mg/ 50.5 mls @ 100 mls/hr 06/23/20 21:22 Sodium Chloride IV Q6H PRN Nausea/Vomiting Azithromycin 500 mg/ Sodium 250 mls @ 250 mls/hr 06/24/20 22:00 06/26/20 21:57 Chloride IV 06/27/20 22:59 250 mls/hr Q24H JUAN Administration Ceftriaxone Sodium 1 gm/ 100 mls @ 200 mls/hr 06/24/20 22:00 06/26/20 21:57 Sodium Chloride IV 06/28/20 22:01 200 mls/hr Q24H JUAN Administration Ondansetron HCl 4 mg 06/23/20 21:22 Zofran IV Q6H PRN Nausea/Vomiting Phenytoin Sodium 300 mg 06/24/20 21:00 06/26/20 22:00 Phenytoin PO 300 mg BEDTIME JUAN Administration Phenytoin Sodium 30 mg 06/24/20 21:00 06/26/20 22:01 Dilantin PO 30 mg BEDTIME JUAN Administration Polyethylene Glycol 17 gm 06/23/20 21:22 06/25/20 09:18 Miralax PO 17 gm DAILY PRN Administration Constipation Senna/Docusate Sodium 1 tab 06/27/20 09:00 Senna Plus PO DAILY JUAN Sodium Chloride 10 ml 06/23/20 17:37 06/23/20 17:44 Saline Flush FLUSH 10 ml ASDIRECTED PRN Administration Keep Vein Open Vitamin B Complex/Vitamin C 1 cap 06/24/20 09:00 06/26/20 09:13 Super B With Vitamin C PO 1 cap DAILY JUAN Administration Vitamin E 800 units 06/24/20 09:00 06/26/20 09:12 Vitamin E PO 800 units DAILY JUAN Administration Zinc Sulfate 220 mg 06/24/20 09:00 06/26/20 09:13 Zincate PO 220 mg DAILY JUAN Administration Discontinued Medications Generic Name Dose Route Start Last Admin Trade Name Freq PRN Reason Stop Dose Admin Acetaminophen 650 mg 06/23/20 17:50 06/23/20 18:10 Tylenol PO 06/23/20 17:51 650 mg NOW ONE Administration Acetaminophen 650 mg 06/23/20 21:22 Tylenol RECTAL Q4H PRN Pain (mild 1-3) Dexamethasone 6 mg 06/23/20 17:50 06/23/20 18:16 Decadron IVPUSH 06/23/20 17:51 6 mg ONETIME ONE Administration Famotidine 20 mg 06/23/20 21:33 06/23/20 22:35 Pepcid IVPUSH 06/23/20 21:34 20 mg ONETIME ONE Administration Folic Acid 1 mg 06/24/20 09:00 06/24/20 09:18 Folic Acid PO Not Given DAILY JUAN Azithromycin 500 mg/ Sodium 250 mls @ 250 mls/hr 06/23/20 21:29 06/23/20 23:05 Chloride IV 06/23/20 22:28 250 mls/hr ONETIME ONE Administration Ceftriaxone Sodium 1 gm/ 100 mls @ 200 mls/hr 06/23/20 21:28 06/23/20 22:35 Sodium Chloride IV 06/23/20 21:57 200 mls/hr ONETIME ONE Administration Influenza Virus Vaccine 1 each 06/24/20 01:29 Pharmacy To Dose - Influenza Vaccine IM 06/24/20 01:30 ONETIME ONE Influenza Virus Vaccine 240 mcg 06/24/20 10:00 Fluzone High-Dose Quad 2020-21 IM 06/24/20 10:01 .ONCE ONE Insulin Human Lispro 0 unit 06/24/20 09:00 06/26/20 12:16 Humalog SUBCUT Not Given [facility] Protocol Phenytoin Sodium 300 mg 06/23/20 22:30 06/23/20 22:48 Phenytoin PO 06/23/20 22:31 300 mg ONETIME ONE Administration Phenytoin Sodium 30 mg 06/23/20 22:30 06/23/20 22:48 Dilantin PO 06/23/20 22:31 30 mg ONETIME ONE Administration Senna/Docusate Sodium 1 tab 06/23/20 21:22 Senna Plus PO BID PRN Constipation Senna/Docusate Sodium 1 tab 06/25/20 21:00 Senna Plus PO BID JUAN Senna/Docusate Sodium 2 tab 06/25/20 13:00 06/26/20 09:12 Senna Plus PO 2 tab BID JUAN Administration - Re-Assessments/Exams Free Text/Narrative Re-Assessment/Exam: 06/23/20 17:59 The patient presents to the ED for the evaluation of her ongoing COVID-19 illness, due to her hypoxia, she would likely benefit from hospital admission, will repeat some labs to include CBC, CMP, lactic acid, blood cultures x2, and a blood gas that was ordered on room air but performed with oxygen placed. EKG demonstrates no focal abnormalities sinus rhythm at 94 bpm, chest x-ray will also be obtained to compare from yesterday's visit. We will go ahead and call her hospitalist, Dr. Ramsay for admission at this time. 06/23/20 18:57 Dr. Elena did tentatively accept for admission, labs have started to result, CBC is unremarkable, patient CRP is elevated from yesterday, it was 12 yesterday, and is a level of 18.1 at today's visit. Metabolic panel is essentially unremarkable as well. Urinalysis does not show any sign of infection. We will go ahead and put admission orders and get the patient transferred to [facility]. Departure - Departure Time of Disposition: 19:00 Disposition: Admitted As Inpatient 65 Condition: Good Clinical Impression: Hypoxia, Pneumonia due to COVID-19 virus - Discharge Information Sepsis Event Note (ED) - Evaluation Sepsis Screening Result: Possible Severe Sepsis Risk
--- NOTE | 2020-06-23 20:39 | PCM.HP.2 ---
H&P History of Present Illness - General Date of Service: 06/23/20 Admit Problem/Dx: Admission Diagnosis/Problem Admission Diagnosis/Problem Hypoxia Source of Information: Patient, Old Records, Provider, RN Notes Reviewed History Limitations: Reports: Physical Impairment - History of Present Illness Initial Comments - Free Text/Narative: This is a 69 yo elderly white female with past medical hx/o Seizure disorder,CESAR, hx/o SSS S/p Pacemaker placement, Vit D deficiency and Obesity who comes back for worsening Covid-19 infection primarily with increasing shortness of breath with non-productive cough. She has been having flu-like symptoms for about a week now. She was diagnosed with Covid-19 yesterday in our ED and received Jenny Kirsty's monoclonal antibodies therapy (Bamlam). However she felt no better. Associated to her main complaints were decreased appetite, headaches, malaise, fatigue, generalized weakness, and sleep deprivation. No GI/ complaints. Her initial work up shows a CBC notable for Lymphocytes of 44%. Her ABG essentially shows normal gas. Her chemistry is significant for AG of 16.8, BS of 125, AST of 78, ALT of 85, CRP of 18.1, proBNP of 446, and Albumin of 3.1. Her UA was negative for infection. Her chest x-ray shows bilateral patchy infiltra cee consistent with Covid-19 infection. Patient received 6 mg of IV Dexamethasone and a one time dose of Tylenol for initial treatment in ED. She is coming in for further treatment of Covid-19 infection. - Related Data Allergies/Adverse Reactions: Allergies Allergy/AdvReac Type Severity Reaction Status Date / Time Penicillins Allergy Rash Verified 06/23/20 20:51 Home Medications: Home Meds Phenytoin Sodium Extended [Dilantin] 330 mg PO BEDTIME 02/27/16 [History] Ferrous Sulfate 325 mg PO TID #30 tablet 05/12/18 [Rx] Cholecalciferol (Vitamin D3) [Vitamin D] 5,000 unit PO DAILY 06/22/20 [History] Folic Acid 1 mg PO DAILY 06/22/20 [History] Vitamin B Complex 1 each PO DAILY 06/22/20 [History] Vitamin E 1,000 unit PO DAILY 06/22/20 [History] Past Medical History Cardiovascular History: Reports: Pacemaker Neurological History: Reports: Seizure Hematologic History: Reports: Anemia, Blood Transfusion(s), Other (See Below) - Past Surgical History Cardiovascular Surgical History: Reports: Pacer Social & Family History - Tobacco Use Tobacco Use Status *Q: Never Tobacco User - Caffeine Use Caffeine Use: Reports: None - Recreational Drug Use Recreational Drug Use: No H&P Review of Systems - Review of Systems: Review Of Systems: See Below General: Reports: Malaise, Weakness, Fatigue, Decreased Appetite HEENT: Reports: Headaches. Denies: Dysphasia, Sore Throat Pulmonary: Reports: Shortness of Breath, Cough. Denies: Pleuritic Chest Pain Cardiovascular: Reports: Lightheadedness. Denies: Chest Pain, Edema Gastrointestinal: Denies: Abdominal Pain, Diarrhea, Nausea, Vomiting Genitourinary: Denies: Frequency Musculoskeletal: Reports: Other (body aches). Denies: Muscle Stiffness Skin: Denies: Bruising, Pruritis, Rash, Erythema Psychiatric: Denies: Depression, Anxiety Neurological: Reports: Weakness. Denies: Confusion, Difficulty Walking, Gait Disturbance Hematologic/Lymphatic: Reports: No Symptoms Immunologic: Reports: No Symptoms Exam - Exam Exam: See Below - Vital Signs Vital Signs: Last Vital Signs Temp 36.6 C 06/23/20 19:45 Pulse 77 06/23/20 19:45 Resp 18 06/23/20 19:45 BP 116/59 L 06/23/20 19:45 Pulse Ox 97 06/23/20 19:45 Weight: 83.915 kg - Exam Quality Assessment: Supplemental Oxygen General: Alert, Oriented, Cooperative, Mild Distress, Other (Obese) HEENT: Conjunctiva Clear, EACs Clear, EOMI, Hearing Intact, Mucosa Moist & [place], Nares Patent, Normal Nasal Septum, Posterior Pharynx Clear, Pupils Equal, Pupils Reactive Neck: Supple, Trachea Midline Lungs: Normal Respiratory Effort, Decreased Breath Sounds Cardiovascular: Regular Rate, Regular Rhythm GI/Abdominal Exam: Normal Bowel Sounds, Soft, Non-Tender, No Organomegaly, No Distention, No Abnormal Bruit, No Mass, Other (Obese) (Female) Exam: Deferred Rectal (Female) Exam: Deferred Back Exam: Normal Inspection, Decreased Range of Motion Extremities: Normal Inspection, Normal Range of Motion, Non-Tender, No Pedal Edema, Normal Capillary Refill Peripheral Pulses: 2+: Dorsalis Pedis (L), Dorsalis Pedis (R) Skin: Warm, Dry, Intact Neuro Extensive - Mental Status: Oriented x3, Normal Cognition, Memory Intact Neuro Extensive - Motor, Sensory, Reflexes: CN II-XII Intact (limited due to generalized weakness but grossly intact), Normal Gait Psychiatric: Alert, Normal Affect, Normal Mood - Patient Data Lab Results Last 24 hrs: Laboratory Results - last 24 hr 06/23/20 06/23/20 06/23/20 Range/Units 17:33 17:33 17:33 WBC 6.01 (3.98-10.04) K/mm3 RBC 4.70 (3.98-5.22) M/mm3 Hgb 14.2 (11.2-15.7) gm/dl Hct 43.6 (34.1-44.9) % MCV 92.8 (79.4-94.8) fl MCH 30.2 (25.6-32.2) pg MCHC 32.6 (32.2-35.5) g/dl RDW Std Deviation 42.2 (36.4-46.3) fL Plt Count 209 (182-369) K/mm3 MPV 9.4 (9.4-12.3) fl Neutrophils % (Manual) 46 (40-60) % Band Neutrophils % 0 (0-10) % Lymphocytes % (Manual) 44 H (20-40) % Atypical Lymphs % 0 % Monocytes % (Manual) 10 (2-10) % Eosinophils % (Manual) 0 L (0.7-5.8) % Basophils % (Manual) 0 L (0.1-1.2) Platelet Estimate Adequate RBC Morph Comment Normal Puncture Site ABG pH (7.35-7.45) ABG pCO2 (35.0-45.0) mmHg ABG pO2 (80.0-100.0) mmHg ABG HCO3 (22.0-26.0) meq/L ABG O2 Saturation (96.0-97.0) % ABG Base Excess (-2-2.0) Burton Test O2 Delivery Device Oxygen Flow Rate FiO2 (21.00-100.00) % Sodium 136 (136-145) mEq/L Potassium 3.8 (3.5-5.1) mEq/L Chloride 99 (98-107) mEq/L Carbon Dioxide 24 (21-32) mEq/L Anion Gap 16.8 H (5-15) BUN 11 (7-18) mg/dL Creatinine 1.0 (0.55-1.02) mg/dL Est Cr Clr Drug Dosing 41.40 mL/min Estimated GFR (MDRD) 55 (>60) mL/min BUN/Creatinine Ratio 11.0 L (14-18) Glucose 125 H (80-115) mg/dL Lactic Acid 1.5 (0.4-2.0) mmol/L Calcium 8.9 (8.5-10.1) mg/dL Total Bilirubin 0.4 (0.2-1.0) mg/dL AST 78 H (15-37) U/L ALT 85 H (14-59) U/L Alkaline Phosphatase 96 (46-116) U/L Troponin I (0.00-0.056) ng/mL C-Reactive Protein 18.1 H* (<1.0) mg/dL NT-Pro-B Natriuret Pep (0-125) pg/mL Total Protein 7.5 (6.4-8.2) g/dl Albumin 3.1 L (3.4-5.0) g/dl Globulin 4.4 gm/dL Albumin/Globulin Ratio 0.7 L (1-2) Urine Color (Yellow) Urine Appearance (Clear) Urine pH (5.0-8.0) Ur Specific [place] (1.005-1.030) Urine Protein (Negative) Urine Glucose (UA) (Negative) Urine Ketones (Negative) Urine Occult Blood (Negative) Urine Nitrite (Negative) Urine Bilirubin (Negative) Urine Urobilinogen (0.2-1.0) Ur Leukocyte Esterase (Negative) Urine RBC (0-5) /hpf Urine WBC (0-5) /hpf Ur Squamous Epith Cells (0-5) /hpf Urine Bacteria (FEW) /hpf Urine Mucus (FEW) /hpf 06/23/20 06/23/20 06/23/20 Range/Units 17:33 17:36 17:43 WBC (3.98-10.04) K/mm3 RBC (3.98-5.22) M/mm3 Hgb (11.2-15.7) gm/dl Hct (34.1-44.9) % MCV (79.4-94.8) fl MCH (25.6-32.2) pg MCHC (32.2-35.5) g/dl RDW Std Deviation (36.4-46.3) fL Plt Count (182-369) K/mm3 MPV (9.4-12.3) fl Neutrophils % (Manual) (40-60) % Band Neutrophils % (0-10) % Lymphocytes % (Manual) (20-40) % Atypical Lymphs % % Monocytes % (Manual) (2-10) % Eosinophils % (Manual) (0.7-5.8) % Basophils % (Manual) (0.1-1.2) Platelet Estimate RBC Morph Comment Puncture Site Rt radial ABG pH 7.43 (7.35-7.45) ABG pCO2 34.3 L (35.0-45.0) mmHg ABG pO2 101.0 H (80.0-100.0) mmHg ABG HCO3 22.3 (22.0-26.0) meq/L ABG O2 Saturation 98.1 H (96.0-97.0) % ABG Base Excess -0.9 (-2-2.0) Burton Test Positive O2 Delivery Device Nasal cannula Oxygen Flow Rate 1.5 FiO2 0.00 L (21.00-100.00) % Sodium (136-145) mEq/L Potassium (3.5-5.1) mEq/L Chloride (98-107) mEq/L Carbon Dioxide (21-32) mEq/L Anion Gap (5-15) BUN (7-18) mg/dL Creatinine (0.55-1.02) mg/dL Est Cr Clr Drug Dosing mL/min Estimated GFR (MDRD) (>60) mL/min BUN/Creatinine Ratio (14-18) Glucose (80-115) mg/dL Lactic Acid (0.4-2.0) mmol/L Calcium (8.5-10.1) mg/dL Total Bilirubin (0.2-1.0) mg/dL AST (15-37) U/L ALT (14-59) U/L Alkaline Phosphatase (46-116) U/L Troponin I (0.00-0.056) ng/mL C-Reactive Protein (<1.0) mg/dL NT-Pro-B Natriuret Pep 446 H (0-125) pg/mL Total Protein (6.4-8.2) g/dl Albumin (3.4-5.0) g/dl Globulin gm/dL Albumin/Globulin Ratio (1-2) Urine Color Yellow (Yellow) Urine Appearance Clear (Clear) Urine pH 5.5 (5.0-8.0) Ur Specific [place] 1.015 (1.005-1.030) Urine Protein 1+ H (Negative) Urine Glucose (UA) Negative (Negative) Urine Ketones Trace H (Negative) Urine Occult Blood Negative (Negative) Urine Nitrite Negative (Negative) Urine Bilirubin Negative (Negative) Urine Urobilinogen 0.2 (0.2-1.0) Ur Leukocyte Esterase Negative (Negative) Urine RBC 0-5 (0-5) /hpf Urine WBC 0-5 (0-5) /hpf Ur Squamous Epith Cells 0-5 (0-5) /hpf Urine Bacteria Moderate H (FEW) /hpf Urine Mucus Few (FEW) /hpf 06/23/20 Range/Units 18:05 WBC (3.98-10.04) K/mm3 RBC (3.98-5.22) M/mm3 Hgb (11.2-15.7) gm/dl Hct (34.1-44.9) % MCV (79.4-94.8) fl MCH (25.6-32.2) pg MCHC (32.2-35.5) g/dl RDW Std Deviation (36.4-46.3) fL Plt Count (182-369) K/mm3 MPV (9.4-12.3) fl Neutrophils % (Manual) (40-60) % Band Neutrophils % (0-10) % Lymphocytes % (Manual) (20-40) % Atypical Lymphs % % Monocytes % (Manual) (2-10) % Eosinophils % (Manual) (0.7-5.8) % Basophils % (Manual) (0.1-1.2) Platelet Estimate RBC Morph Comment Puncture Site ABG pH (7.35-7.45) ABG pCO2 (35.0-45.0) mmHg ABG pO2 (80.0-100.0) mmHg ABG HCO3 (22.0-26.0) meq/L ABG O2 Saturation (96.0-97.0) % ABG Base Excess (-2-2.0) Burton Test O2 Delivery Device Oxygen Flow Rate FiO2 (21.00-100.00) % Sodium (136-145) mEq/L Potassium (3.5-5.1) mEq/L Chloride (98-107) mEq/L Carbon Dioxide (21-32) mEq/L Anion Gap (5-15) BUN (7-18) mg/dL Creatinine (0.55-1.02) mg/dL Est Cr Clr Drug Dosing mL/min Estimated GFR (MDRD) (>60) mL/min BUN/Creatinine Ratio (14-18) Glucose (80-115) mg/dL Lactic Acid (0.4-2.0) mmol/L Calcium (8.5-10.1) mg/dL Total Bilirubin (0.2-1.0) mg/dL AST (15-37) U/L ALT (14-59) U/L Alkaline Phosphatase (46-116) U/L Troponin I 0.025 (0.00-0.056) ng/mL C-Reactive Protein (<1.0) mg/dL NT-Pro-B Natriuret Pep (0-125) pg/mL Total Protein (6.4-8.2) g/dl Albumin (3.4-5.0) g/dl Globulin gm/dL Albumin/Globulin Ratio (1-2) Urine Color (Yellow) Urine Appearance (Clear) Urine pH (5.0-8.0) Ur Specific [place] (1.005-1.030) Urine Protein (Negative) Urine Glucose (UA) (Negative) Urine Ketones (Negative) Urine Occult Blood (Negative) Urine Nitrite (Negative) Urine Bilirubin (Negative) Urine Urobilinogen (0.2-1.0) Ur Leukocyte Esterase (Negative) Urine RBC (0-5) /hpf Urine WBC (0-5) /hpf Ur Squamous Epith Cells (0-5) /hpf Urine Bacteria (FEW) /hpf Urine Mucus (FEW) /hpf Result Diagrams: 06/24/20 04:30 06/24/20 04:30 Sepsis Event Note - Evaluation Sepsis Screening Result: Sepsis Risk - Focused Exam Vital Signs: Vital Signs Temp Pulse Resp BP Pulse Ox 06/23/20 19:45 36.6 C 77 18 116/59 L 97 06/23/20 19:30 75 16 116/61 97 06/23/20 19:00 84 20 125/56 L 96 06/23/20 18:08 96 24 H 133/64 97 06/23/20 17:31 38.3 C H 96 20 141/67 H 84 L Problem List Initiated/Reviewed/Updated: Yes Orders Last 24hrs: Active Orders 24 hr Category Date Time Status Admission Status [Patient Status] [ADT] Routine ADT 06/23/20 18:58 Active EKG Documentation Completion [RC] ASDIRECTED Care 06/23/20 17:37 Active Insert Urinary Catheter [OM.PC] Stat Care 06/23/20 18:20 Ordered Peripheral IV Care [RC] . DIRECTED Care 06/23/20 17:38 Active Urinary Catheter Assessment [RC] ASDIRECTED Care 06/23/20 18:28 Active Chest 1V Frontal [CR] Stat Exams 06/23/20 17:43 Taken CULTURE BLOOD [BC] Stat Lab 06/23/20 18:05 Received CULTURE BLOOD [BC] Stat Lab 06/23/20 18:17 Received Sodium Chloride 0.9% [Saline Flush] Med 06/23/20 17:37 Active 10 ml FLUSH ASDIRECTED PRN Blood Culture x2 Reflex Set [OM.PC] Stat Oth 06/23/20 17:37 Ordered Peripheral IV Insertion Adult [OM.PC] Routine Oth 06/23/20 17:37 Ordered EKG 12 Lead [EK] Stat Ther 06/23/20 17:37 Ordered Medication Orders Sodium Chloride (Saline Flush) 10 ml FLUSH ASDIRECTED PRN PRN Reason: Keep Vein Open Last Admin: 06/23/20 17:44 Dose: 10 ml Documented by: PAM Assessment/Plan Comment:: This is a 69 yo elderly white female with past medical hx/o Seizure disorder,CESAR, hx/o SSS S/p Pacemaker placement, Vit D deficiency and Obesity who comes back for worsening Covid-19 infection primarily with increasing shortness of breath with non-productive cough. Assessment: Acute: Covid-19 Infection, 05/22/2020, received Galina Fregoso's Bamlam yesterday in ED, has been symptomatic for a week Viral pneumonitis/Atypical pneumonia Hypoxia on 2L NC Lymphocytosis with Lymphocytes of 44% Elevated AG level of 16.8 Hyperglycemia with BS of 125 Elevated Liver Enzymes Elevated CRP level of 18.1 Elevated proBNP level of 446 Hypoalbuminemia with Albumin of 3.1 Mild Proteinuria Mild Ketonuria Class I Obese Chronic: Seizure disorder,CESAR, hx/o SSS S/p Pacemaker placement, Vit D deficiency and Obesity Plan: Admit to [facility]. Routine AM Labs. Inflammatory markers. Isolation protocol. Unclear if she would benefit with Veklury, she has received monoclonal antibodies yesterday. Empiric IV antibiotics with Azithromycin and Rocephin daily. Dexamethasone daily. Sputum culture with grams stain. PRN decongestant/ex pectorant. PRN douneb for wheezing and sob. Serial CXR as indicated. Accu-check TIDPC with ISS. Monitor electrolytes and replete as needed. DVT/GI prophylaxis: Lovenox SubQ and H2B. RT to assess respiratory status. IS as directed. Vit D level and Zinc supplement. PT/OT when appropriate. Encourage to use her IS and ambulate inside her room but to let her nurse know. Code status is full. LOS > 96 hrs for treatment of Covid-19 infection. - Mortality Measure Prognosis:: Good
[2020-06-23] MEDS ORDERED: Albuterol/Ipratropium 3.0-0.5 MG/3 ML Neb Soln NEB PRN (21:22)
[2020-06-23] MEDS ORDERED: HYDROmorphone 0.5 MG/0.5 ML Syringe IVPUSH PRN (21:22)
[2020-06-23] MEDS ORDERED: Ondansetron 4 MG/2 ML SDV IV PRN (21:22)
[2020-06-23] MEDS ORDERED: Acetaminophen/HYDROcodone 325-5 MG Tab PO PRN (21:22)
[2020-06-23] MEDS ORDERED: Promethazine 12.5 MG in Sodium Chloride 0.9% 50 ML IV PRN (21:22)
[2020-06-23] MEDS ORDERED: Acetaminophen 650 MG Supp RECTAL PRN (21:22)
[2020-06-23] MEDS ORDERED: cefTRIAXone 1 GM in Sodium Chloride 0.9% 100 ML IV ONE (21:28)
[2020-06-23] MEDS ORDERED: Azithromycin 500 MG in Sodium Chloride 0.9% 250 ML IV ONE (21:29)
[2020-06-23] MEDS ORDERED: guaiFENesin/Dextromethorphan 100-10 MG/5 ML Soln 5 ML Cup PO PRN (21:30)
[2020-06-23] MEDS ORDERED: Famotidine 20 MG/2 ML SDV IVPUSH ONE (21:33)
[2020-06-23] MEDS ORDERED: Phenytoin 100 MG Cap.ER PO ONE (22:30)
[2020-06-23] MEDS ORDERED: Phenytoin 30 MG Cap.ER PO ONE (22:30)
[2020-06-24 07:25] LABS: VITAMIN D,25-HYDROXY 90.6 ng/ml (30.0-100.0)
--- NOTE | 2020-06-24 07:38 | PCM.PN ---
- General Info Date of Service: 06/24/20 Admission Dx/Problem (Free Text): Admission Diagnosis/Problem Admission Diagnosis/Problem Hypoxia Subjective Update: No overnight or acute issues. She feels better this AM. She is now down to 1L NC. Afebrile without leukocytosis. She just had breakfast and tolerated her diet well. Functional Status: Reports: Pain Controlled, Tolerating Diet, Ambulating, Urinating, Incentive Spirometry. Denies: New Symptoms - Review of Systems General: Reports: Weakness, Fatigue, Malaise. Denies: Fever, Chills HEENT: Denies: Headaches, Sore Throat Pulmonary: Reports: Shortness of Breath, Cough, Sputum Cardiovascular: Denies: Chest Pain Gastrointestinal: Denies: Abdominal Pain, Nausea, Vomiting Genitourinary: Denies: Frequency Musculoskeletal: Denies: Joint Pain Skin: Denies: Bruising, Pruritis, Rash Neurological: Reports: Weakness. Denies: Confusion, Difficulty Walking Psychiatric: Denies: Confusion, Depression, Anxiety - Patient Data Vitals - Most Recent: Last Vital Signs Temp 36.4 C 06/24/20 02:46 Pulse 73 06/24/20 02:46 Resp 18 06/24/20 02:46 BP 110/67 06/24/20 02:46 Pulse Ox 98 06/24/20 06:19 Weight - Most Recent: 81.783 kg I&O - Last 24 Hours: Intake & Output 06/23/20 06/24/20 06/24/20 22:59 06:59 14:59 Intake Total 550 Output Total 75 650 Balance -75 -100 Lab Results Last 24 Hours: Laboratory Results - last 24 hr 06/23/20 06/23/20 06/23/20 Range/Units 17:33 17:33 17:33 WBC 6.01 (3.98-10.04) K/mm3 RBC 4.70 (3.98-5.22) M/mm3 Hgb 14.2 (11.2-15.7) gm/dl Hct 43.6 (34.1-44.9) % MCV 92.8 (79.4-94.8) fl MCH 30.2 (25.6-32.2) pg MCHC 32.6 (32.2-35.5) g/dl RDW Std Deviation 42.2 (36.4-46.3) fL Plt Count 209 (182-369) K/mm3 MPV 9.4 (9.4-12.3) fl Neut % (Auto) (34.0-71.1) % Lymph % (Auto) (19.3-51.7) % [place] % (Auto) (4.7-12.5) % Eos % (Auto) (0.7-5.8) Baso % (Auto) (0.1-1.2) % Neut # (Auto) (1.56-6.13) K/mm3 Lymph # (Auto) (1.18-3.74) K/mm3 [place] # (Auto) (0.24-0.36) K/mm3 Eos # (Auto) (0.04-0.36) K/mm3 Baso # (Auto) (0.01-0.08) K/mm3 Neutrophils % (Manual) 46 (40-60) % Band Neutrophils % 0 (0-10) % Lymphocytes % (Manual) 44 H (20-40) % Atypical Lymphs % 0 % Monocytes % (Manual) 10 (2-10) % Eosinophils % (Manual) 0 L (0.7-5.8) % Basophils % (Manual) 0 L (0.1-1.2) Platelet Estimate Adequate RBC Morph Comment Normal ESR (0-20) mm/hr D-Dimer, Quantitative (0.19-0.50) mg/L Puncture Site ABG pH (7.35-7.45) ABG pCO2 (35.0-45.0) mmHg ABG pO2 (80.0-100.0) mmHg ABG HCO3 (22.0-26.0) meq/L ABG O2 Saturation (96.0-97.0) % ABG Base Excess (-2-2.0) Burton Test O2 Delivery Device Oxygen Flow Rate FiO2 (21.00-100.00) % Sodium 136 (136-145) mEq/L Potassium 3.8 (3.5-5.1) mEq/L Chloride 99 (98-107) mEq/L Carbon Dioxide 24 (21-32) mEq/L Anion Gap 16.8 H (5-15) BUN 11 (7-18) mg/dL Creatinine 1.0 (0.55-1.02) mg/dL Est Cr Clr Drug Dosing 41.40 mL/min Estimated GFR (MDRD) 55 (>60) mL/min BUN/Creatinine Ratio 11.0 L (14-18) Glucose 125 H (80-115) mg/dL POC Glucose (80-115) mg/dL Lactic Acid 1.5 (0.4-2.0) mmol/L Calcium 8.9 (8.5-10.1) mg/dL Magnesium (1.8-2.4) mg/dl Total Bilirubin 0.4 (0.2-1.0) mg/dL AST 78 H (15-37) U/L ALT 85 H (14-59) U/L Alkaline Phosphatase 96 (46-116) U/L Troponin I (0.00-0.056) ng/mL C-Reactive Protein 18.1 H* (<1.0) mg/dL NT-Pro-B Natriuret Pep (0-125) pg/mL Total Protein 7.5 (6.4-8.2) g/dl Albumin 3.1 L (3.4-5.0) g/dl Globulin 4.4 gm/dL Albumin/Globulin Ratio 0.7 L (1-2) Vitamin D 25-Hydroxy (30.0-100.0) ng/ml Urine Color (Yellow) Urine Appearance (Clear) Urine pH (5.0-8.0) Ur Specific [place] (1.005-1.030) Urine Protein (Negative) Urine Glucose (UA) (Negative) Urine Ketones (Negative) Urine Occult Blood (Negative) Urine Nitrite (Negative) Urine Bilirubin (Negative) Urine Urobilinogen (0.2-1.0) Ur Leukocyte Esterase (Negative) Urine RBC (0-5) /hpf Urine WBC (0-5) /hpf Ur Squamous Epith Cells (0-5) /hpf Urine Bacteria (FEW) /hpf Urine Mucus (FEW) /hpf 06/23/20 06/23/20 06/23/20 Range/Units 17:33 17:36 17:43 WBC (3.98-10.04) K/mm3 RBC (3.98-5.22) M/mm3 Hgb (11.2-15.7) gm/dl Hct (34.1-44.9) % MCV (79.4-94.8) fl MCH (25.6-32.2) pg MCHC (32.2-35.5) g/dl RDW Std Deviation (36.4-46.3) fL Plt Count (182-369) K/mm3 MPV (9.4-12.3) fl Neut % (Auto) (34.0-71.1) % Lymph % (Auto) (19.3-51.7) % [place] % (Auto) (4.7-12.5) % Eos % (Auto) (0.7-5.8) Baso % (Auto) (0.1-1.2) % Neut # (Auto) (1.56-6.13) K/mm3 Lymph # (Auto) (1.18-3.74) K/mm3 [place] # (Auto) (0.24-0.36) K/mm3 Eos # (Auto) (0.04-0.36) K/mm3 Baso # (Auto) (0.01-0.08) K/mm3 Neutrophils % (Manual) (40-60) % Band Neutrophils % (0-10) % Lymphocytes % (Manual) (20-40) % Atypical Lymphs % % Monocytes % (Manual) (2-10) % Eosinophils % (Manual) (0.7-5.8) % Basophils % (Manual) (0.1-1.2) Platelet Estimate RBC Morph Comment ESR (0-20) mm/hr D-Dimer, Quantitative (0.19-0.50) mg/L Puncture Site Rt radial ABG pH 7.43 (7.35-7.45) ABG pCO2 34.3 L (35.0-45.0) mmHg ABG pO2 101.0 H (80.0-100.0) mmHg ABG HCO3 22.3 (22.0-26.0) meq/L ABG O2 Saturation 98.1 H (96.0-97.0) % ABG Base Excess -0.9 (-2-2.0) Burton Test Positive O2 Delivery Device Nasal cannula Oxygen Flow Rate 1.5 FiO2 0.00 L (21.00-100.00) % Sodium (136-145) mEq/L Potassium (3.5-5.1) mEq/L Chloride (98-107) mEq/L Carbon Dioxide (21-32) mEq/L Anion Gap (5-15) BUN (7-18) mg/dL Creatinine (0.55-1.02) mg/dL Est Cr Clr Drug Dosing mL/min Estimated GFR (MDRD) (>60) mL/min BUN/Creatinine Ratio (14-18) Glucose (80-115) mg/dL POC Glucose (80-115) mg/dL Lactic Acid (0.4-2.0) mmol/L Calcium (8.5-10.1) mg/dL Magnesium (1.8-2.4) mg/dl Total Bilirubin (0.2-1.0) mg/dL AST (15-37) U/L ALT (14-59) U/L Alkaline Phosphatase (46-116) U/L Troponin I (0.00-0.056) ng/mL C-Reactive Protein (<1.0) mg/dL NT-Pro-B Natriuret Pep 446 H (0-125) pg/mL Total Protein (6.4-8.2) g/dl Albumin (3.4-5.0) g/dl Globulin gm/dL Albumin/Globulin Ratio (1-2) Vitamin D 25-Hydroxy (30.0-100.0) ng/ml Urine Color Yellow (Yellow) Urine Appearance Clear (Clear) Urine pH 5.5 (5.0-8.0) Ur Specific [place] 1.015 (1.005-1.030) Urine Protein 1+ H (Negative) Urine Glucose (UA) Negative (Negative) Urine Ketones Trace H (Negative) Urine Occult Blood Negative (Negative) Urine Nitrite Negative (Negative) Urine Bilirubin Negative (Negative) Urine Urobilinogen 0.2 (0.2-1.0) Ur Leukocyte Esterase Negative (Negative) Urine RBC 0-5 (0-5) /hpf Urine WBC 0-5 (0-5) /hpf Ur Squamous Epith Cells 0-5 (0-5) /hpf Urine Bacteria Moderate H (FEW) /hpf Urine Mucus Few (FEW) /hpf 06/23/20 06/23/20 06/23/20 Range/Units 18:05 18:05 18:05 WBC (3.98-10.04) K/mm3 RBC (3.98-5.22) M/mm3 Hgb (11.2-15.7) gm/dl Hct (34.1-44.9) % MCV (79.4-94.8) fl MCH (25.6-32.2) pg MCHC (32.2-35.5) g/dl RDW Std Deviation (36.4-46.3) fL Plt Count (182-369) K/mm3 MPV (9.4-12.3) fl Neut % (Auto) (34.0-71.1) % Lymph % (Auto) (19.3-51.7) % [place] % (Auto) (4.7-12.5) % Eos % (Auto) (0.7-5.8) Baso % (Auto) (0.1-1.2) % Neut # (Auto) (1.56-6.13) K/mm3 Lymph # (Auto) (1.18-3.74) K/mm3 [place] # (Auto) (0.24-0.36) K/mm3 Eos # (Auto) (0.04-0.36) K/mm3 Baso # (Auto) (0.01-0.08) K/mm3 Neutrophils % (Manual) (40-60) % Band Neutrophils % (0-10) % Lymphocytes % (Manual) (20-40) % Atypical Lymphs % % Monocytes % (Manual) (2-10) % Eosinophils % (Manual) (0.7-5.8) % Basophils % (Manual) (0.1-1.2) Platelet Estimate RBC Morph Comment ESR 49 H (0-20) mm/hr D-Dimer, Quantitative 0.71 H (0.19-0.50) mg/L Puncture Site ABG pH (7.35-7.45) ABG pCO2 (35.0-45.0) mmHg ABG pO2 (80.0-100.0) mmHg ABG HCO3 (22.0-26.0) meq/L ABG O2 Saturation (96.0-97.0) % ABG Base Excess (-2-2.0) Burton Test O2 Delivery Device Oxygen Flow Rate FiO2 (21.00-100.00) % Sodium (136-145) mEq/L Potassium (3.5-5.1) mEq/L Chloride (98-107) mEq/L Carbon Dioxide (21-32) mEq/L Anion Gap (5-15) BUN (7-18) mg/dL Creatinine (0.55-1.02) mg/dL Est Cr Clr Drug Dosing mL/min Estimated GFR (MDRD) (>60) mL/min BUN/Creatinine Ratio (14-18) Glucose (80-115) mg/dL POC Glucose (80-115) mg/dL Lactic Acid (0.4-2.0) mmol/L Calcium (8.5-10.1) mg/dL Magnesium (1.8-2.4) mg/dl Total Bilirubin (0.2-1.0) mg/dL AST (15-37) U/L ALT (14-59) U/L Alkaline Phosphatase (46-116) U/L Troponin I 0.025 (0.00-0.056) ng/mL C-Reactive Protein (<1.0) mg/dL NT-Pro-B Natriuret Pep (0-125) pg/mL Total Protein (6.4-8.2) g/dl Albumin (3.4-5.0) g/dl Globulin gm/dL Albumin/Globulin Ratio (1-2) Vitamin D 25-Hydroxy (30.0-100.0) ng/ml Urine Color (Yellow) Urine Appearance (Clear) Urine pH (5.0-8.0) Ur Specific [place] (1.005-1.030) Urine Protein (Negative) Urine Glucose (UA) (Negative) Urine Ketones (Negative) Urine Occult Blood (Negative) Urine Nitrite (Negative) Urine Bilirubin (Negative) Urine Urobilinogen (0.2-1.0) Ur Leukocyte Esterase (Negative) Urine RBC (0-5) /hpf Urine WBC (0-5) /hpf Ur Squamous Epith Cells (0-5) /hpf Urine Bacteria (FEW) /hpf Urine Mucus (FEW) /hpf 06/24/20 06/24/20 06/24/20 Range/Units 04:30 04:30 04:30 WBC 5.07 (3.98-10.04) K/mm3 RBC 4.42 (3.98-5.22) M/mm3 Hgb 13.1 (11.2-15.7) gm/dl Hct 41.4 (34.1-44.9) % MCV 93.7 (79.4-94.8) fl MCH 29.6 (25.6-32.2) pg MCHC 31.6 L (32.2-35.5) g/dl RDW Std Deviation 43.0 (36.4-46.3) fL Plt Count 200 (182-369) K/mm3 MPV 10.2 (9.4-12.3) fl Neut % (Auto) 58.9 (34.0-71.1) % Lymph % (Auto) 30.6 (19.3-51.7) % [place] % (Auto) 9.7 (4.7-12.5) % Eos % (Auto) 0.2 L (0.7-5.8) Baso % (Auto) 0.2 (0.1-1.2) % Neut # (Auto) 2.99 (1.56-6.13) K/mm3 Lymph # (Auto) 1.55 (1.18-3.74) K/mm3 [place] # (Auto) 0.49 H (0.24-0.36) K/mm3 Eos # (Auto) 0.01 L (0.04-0.36) K/mm3 Baso # (Auto) 0.01 (0.01-0.08) K/mm3 Neutrophils % (Manual) (40-60) % Band Neutrophils % (0-10) % Lymphocytes % (Manual) (20-40) % Atypical Lymphs % % Monocytes % (Manual) (2-10) % Eosinophils % (Manual) (0.7-5.8) % Basophils % (Manual) (0.1-1.2) Platelet Estimate RBC Morph Comment ESR 40 H (0-20) mm/hr D-Dimer, Quantitative (0.19-0.50) mg/L Puncture Site ABG pH (7.35-7.45) ABG pCO2 (35.0-45.0) mmHg ABG pO2 (80.0-100.0) mmHg ABG HCO3 (22.0-26.0) meq/L ABG O2 Saturation (96.0-97.0) % ABG Base Excess (-2-2.0) Burton Test O2 Delivery Device Oxygen Flow Rate FiO2 (21.00-100.00) % Sodium 143 (136-145) mEq/L Potassium 4.2 (3.5-5.1) mEq/L Chloride 104 (98-107) mEq/L Carbon Dioxide 28 (21-32) mEq/L Anion Gap 15.2 H (5-15) BUN 14 (7-18) mg/dL Creatinine 0.8 (0.55-1.02) mg/dL Est Cr Clr Drug Dosing 51.75 mL/min Estimated GFR (MDRD) > 60 (>60) mL/min BUN/Creatinine Ratio 17.5 (14-18) Glucose 107 (80-115) mg/dL POC Glucose (80-115) mg/dL Lactic Acid (0.4-2.0) mmol/L Calcium 8.7 (8.5-10.1) mg/dL Magnesium 2.5 H (1.8-2.4) mg/dl Total Bilirubin 0.2 (0.2-1.0) mg/dL AST 58 H (15-37) U/L ALT 69 H (14-59) U/L Alkaline Phosphatase 79 (46-116) U/L Troponin I (0.00-0.056) ng/mL C-Reactive Protein 18.4 H* (<1.0) mg/dL NT-Pro-B Natriuret Pep (0-125) pg/mL Total Protein 6.9 (6.4-8.2) g/dl Albumin 2.6 L (3.4-5.0) g/dl Globulin 4.3 gm/dL Albumin/Globulin Ratio 0.6 L (1-2) Vitamin D 25-Hydroxy 90.6 (30.0-100.0) ng/ml Urine Color (Yellow) Urine Appearance (Clear) Urine pH (5.0-8.0) Ur Specific [place] (1.005-1.030) Urine Protein (Negative) Urine Glucose (UA) (Negative) Urine Ketones (Negative) Urine Occult Blood (Negative) Urine Nitrite (Negative) Urine Bilirubin (Negative) Urine Urobilinogen (0.2-1.0) Ur Leukocyte Esterase (Negative) Urine RBC (0-5) /hpf Urine WBC (0-5) /hpf Ur Squamous Epith Cells (0-5) /hpf Urine Bacteria (FEW) /hpf Urine Mucus (FEW) /hpf 06/24/20 Range/Units 06:18 WBC (3.98-10.04) K/mm3 RBC (3.98-5.22) M/mm3 Hgb (11.2-15.7) gm/dl Hct (34.1-44.9) % MCV (79.4-94.8) fl MCH (25.6-32.2) pg MCHC (32.2-35.5) g/dl RDW Std Deviation (36.4-46.3) fL Plt Count (182-369) K/mm3 MPV (9.4-12.3) fl Neut % (Auto) (34.0-71.1) % Lymph % (Auto) (19.3-51.7) % [place] % (Auto) (4.7-12.5) % Eos % (Auto) (0.7-5.8) Baso % (Auto) (0.1-1.2) % Neut # (Auto) (1.56-6.13) K/mm3 Lymph # (Auto) (1.18-3.74) K/mm3 [place] # (Auto) (0.24-0.36) K/mm3 Eos # (Auto) (0.04-0.36) K/mm3 Baso # (Auto) (0.01-0.08) K/mm3 Neutrophils % (Manual) (40-60) % Band Neutrophils % (0-10) % Lymphocytes % (Manual) (20-40) % Atypical Lymphs % % Monocytes % (Manual) (2-10) % Eosinophils % (Manual) (0.7-5.8) % Basophils % (Manual) (0.1-1.2) Platelet Estimate RBC Morph Comment ESR (0-20) mm/hr D-Dimer, Quantitative (0.19-0.50) mg/L Puncture Site ABG pH (7.35-7.45) ABG pCO2 (35.0-45.0) mmHg ABG pO2 (80.0-100.0) mmHg ABG HCO3 (22.0-26.0) meq/L ABG O2 Saturation (96.0-97.0) % ABG Base Excess (-2-2.0) Burton Test O2 Delivery Device Oxygen Flow Rate FiO2 (21.00-100.00) % Sodium (136-145) mEq/L Potassium (3.5-5.1) mEq/L Chloride (98-107) mEq/L Carbon Dioxide (21-32) mEq/L Anion Gap (5-15) BUN (7-18) mg/dL Creatinine (0.55-1.02) mg/dL Est Cr Clr Drug Dosing mL/min Estimated GFR (MDRD) (>60) mL/min BUN/Creatinine Ratio (14-18) Glucose (80-115) mg/dL POC Glucose 100 (80-115) mg/dL Lactic Acid (0.4-2.0) mmol/L Calcium (8.5-10.1) mg/dL Magnesium (1.8-2.4) mg/dl Total Bilirubin (0.2-1.0) mg/dL AST (15-37) U/L ALT (14-59) U/L Alkaline Phosphatase (46-116) U/L Troponin I (0.00-0.056) ng/mL C-Reactive Protein (<1.0) mg/dL NT-Pro-B Natriuret Pep (0-125) pg/mL Total Protein (6.4-8.2) g/dl Albumin (3.4-5.0) g/dl Globulin gm/dL Albumin/Globulin Ratio (1-2) Vitamin D 25-Hydroxy (30.0-100.0) ng/ml Urine Color (Yellow) Urine Appearance (Clear) Urine pH (5.0-8.0) Ur Specific [place] (1.005-1.030) Urine Protein (Negative) Urine Glucose (UA) (Negative) Urine Ketones (Negative) Urine Occult Blood (Negative) Urine Nitrite (Negative) Urine Bilirubin (Negative) Urine Urobilinogen (0.2-1.0) Ur Leukocyte Esterase (Negative) Urine RBC (0-5) /hpf Urine WBC (0-5) /hpf Ur Squamous Epith Cells (0-5) /hpf Urine Bacteria (FEW) /hpf Urine Mucus (FEW) /hpf Med Orders - Current: Current Medications Acetaminophen (Tylenol) 650 mg RECTAL Q4H PRN PRN Reason: Pain (mild 1-3) Hydrocodone Bitart/Acetaminophen ([place] 325-5 Mg) 1 tab PO Q4H PRN PRN Reason: Pain (moderate 4-6) Albuterol/Ipratropium (Duoneb 3.0-0.5 Mg/3 Ml) 3 ml NEB Q4H PRN PRN Reason: Shortness Of Breath/wheezing Cholecalciferol (Vitamin D3) 5,000 unit PO DAILY [facility] Dexamethasone (Dexamethasone) 6 mg PO DAILY [facility] Stop: 07/02/20 09:01 Enoxaparin Sodium (Lovenox) 40 mg SUBCUT DAILY [facility] Famotidine (Pepcid) 20 mg PO BID [facility] Ferrous Sulfate (Ferrous Sulfate) 324 mg PO TID [facility] Folic Acid (Folic Acid) 1 mg PO DAILY [facility] Guaifenesin/Phenylephrine HCl (Robitussin Dm) 10 ml PO Q4H PRN PRN Reason: Cough Hydromorphone HCl (Dilaudid) 0.25 mg IVPUSH Q2H PRN PRN Reason: Pain (severe 7-10) Promethazine HCl 12.5 mg/ (Sodium Chloride) 50.5 mls @ 100 mls/hr IV Q6H PRN PRN Reason: Nausea/Vomiting Azithromycin 500 mg/ Sodium (Chloride) 250 mls @ 250 mls/hr IV Q24H [facility] Stop: 06/27/20 22:59 Ceftriaxone Sodium 1 gm/ (Sodium Chloride) 100 mls @ 200 mls/hr IV Q24H [facility] Stop: 06/28/20 22:01 Influenza Virus Vaccine (Fluzone High-Dose Quad ) 240 mcg IM .ONCE ONE Stop: 06/24/20 10:01 Insulin Human Lispro (Humalog) 0 unit SUBCUT [facility]; Protocol Ondansetron HCl (Zofran) 4 mg IV Q6H PRN PRN Reason: Nausea/Vomiting Phenytoin Sodium (Phenytoin) 300 mg PO BEDTIME [facility] Phenytoin Sodium (Dilantin) 30 mg PO BEDTIME [facility] Polyethylene Glycol (Miralax) 17 gm PO DAILY PRN PRN Reason: Constipation Senna/Docusate Sodium (Senna Plus) 1 tab PO BID PRN PRN Reason: Constipation Sodium Chloride (Saline Flush) 10 ml FLUSH ASDIRECTED PRN PRN Reason: Keep Vein Open Last Admin: 06/23/20 17:44 Dose: 10 ml Documented by: Vitamin B Complex/Vitamin C (Super B With Vitamin C) 1 cap PO DAILY [facility] Vitamin E (Vitamin E) 800 units PO DAILY [facility] Zinc Sulfate (Zincate) 220 mg PO DAILY [facility] Discontinued Medications Acetaminophen (Tylenol) 650 mg PO NOW ONE Stop: 06/23/20 17:51 Last Admin: 06/23/20 18:10 Dose: 650 mg Documented by: Dexamethasone (Decadron) 6 mg IVPUSH ONETIME ONE Stop: 06/23/20 17:51 Last Admin: 06/23/20 18:16 Dose: 6 mg Documented by: Famotidine (Pepcid) 20 mg IVPUSH ONETIME ONE Stop: 06/23/20 21:34 Last Admin: 06/23/20 22:35 Dose: 20 mg Documented by: Azithromycin 500 mg/ Sodium (Chloride) 250 mls @ 250 mls/hr IV ONETIME ONE Stop: 06/23/20 22:28 Last Admin: 06/23/20 23:05 Dose: 250 mls/hr Documented by: Ceftriaxone Sodium 1 gm/ (Sodium Chloride) 100 mls @ 200 mls/hr IV ONETIME ONE Stop: 06/23/20 21:57 Last Admin: 06/23/20 22:35 Dose: 200 mls/hr Documented by: Influenza Virus Vaccine (Pharmacy To Dose - Influenza Vaccine) 1 each IM ONETIME ONE Stop: 06/24/20 01:30 Phenytoin Sodium (Phenytoin) 300 mg PO ONETIME ONE Stop: 06/23/20 22:31 Last Admin: 06/23/20 22:48 Dose: 300 mg Documented by: Phenytoin Sodium (Dilantin) 30 mg PO ONETIME ONE Stop: 06/23/20 22:31 Last Admin: 06/23/20 22:48 Dose: 30 mg Documented by: - Exam Quality Assessment: Supplemental Oxygen General: Alert, Oriented, Cooperative, No Acute Distress HEENT: Pupils Equal, Pupils Reactive, EOMI, Mucous Membr. Moist/[place] Neck: Supple Lungs: Normal Respiratory Effort, Decreased Breath Sounds Cardiovascular: Regular Rate, Regular Rhythm GI/Abdominal Exam: Normal Bowel Sounds, Soft, Non-Tender, No Organomegaly, No Distention, No Abnormal Bruit (Female) Exam: Deferred Back Exam: Normal Inspection, Decreased Range of Motion Extremities: Normal Inspection, Normal Range of Motion, Non-Tender, No Pedal Ed pollo, Normal Capillary Refill Peripheral Pulses: 2+: Dorsalis Pedis (L), Dorsalis Pedis (R) Skin: Warm, Dry, Intact Neurological: No New Focal Deficit, Normal Gait Psy/Mental Status: Alert, Normal Affect, Normal Mood Sepsis Event Note - Evaluation Sepsis Screening Result: No Definite Risk - Focused Exam Vital Signs: Vital Signs Temp Temp Pulse Pulse Resp BP BP 06/24/20 06:19 06/24/20 02:46 36.4 C 73 18 110/67 06/24/20 00:31 69 135/94 H 06/24/20 00:28 36.4 C 62 126/102 H 06/23/20 20:21 36.9 C 74 16 110/80 06/23/20 19:45 36.6 C 77 18 116/59 L Pulse Ox Pulse Ox 06/24/20 06:19 98 06/24/20 02:46 94 L 06/24/20 00:31 97 06/24/20 00:28 94 L 06/23/20 20:21 92 L 06/23/20 19:45 97 - Problem List Review Problem List Initiated/Reviewed/Updated: Yes - My Orders Last 24 Hours: My Active Orders 06/23/20 Dinner Heart Healthy Diet [DIET] 06/23/20 21:22 Height and Weight [RC] 06 Oxygen Therapy [RC] PRN Up ad Moon [RC] ASDIRECTED VTE/DVT Education [RC] PER UNIT ROUTINE Vital Signs [RC] Q4HR Consult to Case Management/Operating System Designer [CONS] Routine Consult to L[place] Feller [CONS] Routine OT Evaluation and Treatment [CONS] Routine PT Evaluation and Treatment [CONS] Routine Respiratory Care Assess and Treatment [CONS] Routine CULTURE SPUTUM + SMEAR [RM] Stat Acetaminophen [Tylenol] 650 mg RECTAL Q4H PRN Acetaminophen/HYDROcodone [[place] 325-5 MG] 1 tab PO Q4H PRN Albuterol/Ipratropium [DuoNeb 3.0-0.5 MG/3 ML] 3 ml NEB Q4H PRN Docusate Sodium/Sennosides [Senna Plus] 1 tab PO BID PRN HYDROmorphone [Dilaudid] 0.25 mg IVPUSH Q2H PRN Ondansetron [Zofran] 4 mg IV Q6H PRN Promethazine [Phenergan] 12.5 mg Sodium Chloride 0.9% [Normal Saline] 50 ml IV Q6H polyethylene glycoL 3350 [MiraLAX] 17 gm PO DAILY PRN Resuscitation Status Routine 06/23/20 21:24 Intake and Output [RC] 04,16 Pulse Oximetry [RC] CONTINUOUS 06/23/20 21:25 RT Aerosol Therapy [RC] ASDIRECTED 06/23/20 21:30 Dextromethorphan/guaiFENesin [Robitussin DM] 10 ml PO Q4H PRN 06/23/20 21:31 Accu Check [Blood Glucose Check, Bedside] [RC] ASDIRECTED Incentive Spirometry [RT Incentive Spirometry] [RC] ASDIRECTED 06/24/20 01:08 Telemetry Monitoring [Cardiac Monitoring] [RC] . DIRECTED 06/24/20 01:29 Influenza Vaccine Charge [RC] .DISCHARGE 06/24/20 09:00 Cholecalciferol (Vitamin D3) [Vitamin D3] 5,000 unit PO DAILY Enoxaparin [Lovenox] 40 mg SUBCUT DAILY Famotidine [Pepcid] 20 mg PO BID Ferrous Sulfate 324 mg PO TID Folic Acid 1 mg PO DAILY Insulin Lispro [HumaLOG] See Protocol SUBCUT TIDPC Vitamin B Complex with C [Super B With Vitamin C] 1 cap PO DAILY Vitamin E (dl, acetate) [Vitamin E] 800 units PO DAILY Zinc Sulfate [Zincate] 220 mg PO DAILY dexAMETHasone 6 mg PO DAILY 06/24/20 10:00 FLU Vacc [id number](65YR UP)/PF [Fluzone High-Dose Quad ] 240 mcg IM .ONCE ONE 06/24/20 21:00 Phenytoin 300 mg PO BEDTIME Phenytoin [Dilantin] 30 mg PO BEDTIME 06/24/20 22:00 Azithromycin [Zithromax] 500 mg Sodium Chloride 0.9% [Normal Saline (AdvBag)] 250 ml IV Q24H cefTRIAXone [Rocephin] 1 gm Sodium Chloride 0.9% [Normal Saline] 100 ml IV Q24H 06/25/20 05:11 Chest 1V Frontal [CR] AM C-REACTIVE PROTEIN [CHEM] AM CBC WITH AUTO DIFF [HEME] AM COMPREHENSIVE METABOLIC PN,CMP [CHEM] AM MAGNESIUM [CHEM] AM SEDIMENTATION RATE AUTO [HEME] AM 06/26/20 05:11 C-REACTIVE PROTEIN [CHEM] AM CBC WITH AUTO DIFF [HEME] AM COMPREHENSIVE METABOLIC PN,CMP [CHEM] AM MAGNESIUM [CHEM] AM SEDIMENTATION RATE AUTO [HEME] AM 06/27/20 05:11 C-REACTIVE PROTEIN [CHEM] AM CBC WITH AUTO DIFF [HEME] AM COMPREHENSIVE METABOLIC PN,CMP [CHEM] AM MAGNESIUM [CHEM] AM SEDIMENTATION RATE AUTO [HEME] AM 06/28/20 05:11 C-REACTIVE PROTEIN [CHEM] AM CBC WITH AUTO DIFF [HEME] AM COMPREHENSIVE METABOLIC PN,CMP [CHEM] AM MAGNESIUM [CHEM] AM SEDIMENTATION RATE AUTO [HEME] AM 06/29/20 05:11 CBC WITH AUTO DIFF [HEME] AM 06/30/20 05:11 CBC WITH AUTO DIFF [HEME] AM - Plan Plan:: This is a 69 yo elderly white female with past medical hx/o Seizure disorder,CESAR, hx/o SSS S/p Pacemaker placement, Vit D deficiency and Obesity who comes back for worsening Covid-19 infection primarily with increasing shortness of breathe with non-productive cough. Assessment: Acute: Covid-19 Infection, 05/22/2020, received [facility]regoso's [place] yesterday in ED, has been symptomatic for a week Viral pneumonitis/Atypical pneumonia Hypoxia on 2L NC, improved; now down to 1L NC Elevated AG level of 16.8, now 15.2 Elevated Liver Enzymes, improved Elevated CRP level of 18.1; essentially the same Elevated proBNP level of 446 Hypoalbuminemia with Albumin of 3.1 Elevated ESR of 49; now 40, POA Mild Proteinuria Mild Ketonuria Class I Obese Resolved: Lymphocytosis with Lymphocytes of 44%, resolved Hyperglycemia with BS of 125, improved/resolved Chronic: Seizure disorder,CESAR, hx/o SSS S/p Pacemaker placement, Vit D deficiency and Obesity Plan: Continue current level. Routine AM Labs. Continue to monitor inflammatory markers. Isolation protocol. Empiric IV antibiotic with Azithromycin and Rocephin daily. Dexamethasone daily. Sputum culture with grams stain. PRN decongestant/expectorant. PRN douneb for wheezing and sob. Serial CXR as indicated. Accu-check TIDPC with ISS. Monitor electrolytes and replete as needed. DVT/GI prophylaxis: Lovenox SubQ and H2B. RT to assess respiratory status. IS as directed. Normal Vit D level. Zinc supplement. PT/OT when appropriate. Code status is full. LOS > 96 hrs for treatment of Covid-19 infection.
--- NOTE | 2020-06-24 07:41 | CR ---
Chest: Portable view of the chest was obtained. Comparison: Prior chest x-ray of 06/22/20. Parenchymal densities are seen within both lungs, worse on the right side. Heart size is slightly enlarged but accentuated from portable technique. Tortuous thoracic aorta seen. Pacemaker is noted. Bony structures are grossly intact. Impression: 1. Patchy areas of increased density within both sides of the chest. Findings are similar to previous exam. Diagnostic code #3
[2020-06-24] MEDS ORDERED: Folic Acid 1 MG Tab PO SCH (09:00)
[2020-06-24] MEDS: Zinc Sulfate 220 MG Cap PO SCH (09:12)
[2020-06-24] MEDS: Ferrous Sulfate 324 MG Tab.EC PO SCH ×3 (09:12→20:26)
[2020-06-24] MEDS: Enoxaparin 40 MG/0.4 ML Syringe SUBCUT SCH (09:12)
[2020-06-24] MEDS: Dexamethasone 4 MG Tab PO SCH (09:12)
[2020-06-24] MEDS: Famotidine 20 MG Tab PO SCH ×2 (09:13→20:24)
[2020-06-24] MEDS: Vitamin E (dl-alpha-tocopherol acetate) 400 Unit Cap PO SCH (09:13)
[2020-06-24] MEDS: Cholecalciferol (Vitamin D3) 5,000 UNIT Cap PO SCH (09:13)
[2020-06-24] MEDS: Vitamin B Complex With Vitamin C Cap PO SCH (09:13)
[2020-06-24] MEDS ORDERED: FLU Vacc QV2020-21(65YR UP)/PF 240 MCG/0.7 ML Syringe IM ONE (10:00)
[2020-06-24] MEDS: Polyethylene Glycol 3350 Powder 17 GM Packet PO PRN (15:05)
[2020-06-24] MEDS: Phenytoin 30 MG Cap.ER PO SCH (20:24)
[2020-06-24] MEDS: Phenytoin 100 MG Cap.ER PO SCH (20:26)
[2020-06-24] MEDS: cefTRIAXone 1 GM in Sodium Chloride 0.9% 100 ML IV SCH (22:12)
[2020-06-24] MEDS: Azithromycin 500 MG in Sodium Chloride 0.9% 250 ML IV SCH (22:50)
--- NOTE | 2020-06-25 08:12 | PCM.PN ---
- General Info Date of Service: 06/25/20 Admission Dx/Problem (Free Text): Admission Diagnosis/Problem Admission Diagnosis/Problem Hypoxia Subjective Update: In to see Kiley. She reports that overall she feels better but she is very tired. She did not sleep well last night as her IV pump would be while she was trying to sleep. IV is in right AC and there is noted bruising above it. She reports that it is starting to hurt. Discussed with nursing and they will try to place a new IV, preferably in a place that will be less positional. Communication order placed to allow patient to sleep in group cares as much as possible. Patient is aware that she likely will still be woken up for vitals etc. but we will try to minimize this as much as possible. She remains on oxygen at 2 L. She reports significant constipation with her last bowel movement being the day of arrival. She has been receiving MiraLAX with minimal improvement. We will schedule II tablets twice daily senna plus and request prune juice on patient's dietary trays until BM is had. Chest x-ray today remains stable and essentially the same. We will continue current treatment plan. Functional Status: Reports: Pain Controlled, Tolerating Diet, Ambulating, Uri nating, Incentive Spirometry. Denies: New Symptoms - Review of Systems General: Reports: No Symptoms, Weakness, Fatigue, Malaise. Denies: Fever, Chills HEENT: Reports: No Symptoms. Denies: Headaches, Sore Throat Pulmonary: Reports: No Symptoms. Denies: Shortness of Breath, Cough, Sputum, Wheezing Cardiovascular: Reports: No Symptoms. Denies: Chest Pain, Palpitations, Dyspnea on Exertion, Edema Gastrointestinal: Reports: Constipation. Denies: Abdominal Pain, Diarrhea, Nausea, Vomiting Genitourinary: Reports: No Symptoms. Denies: Pain Musculoskeletal: Reports: No Symptoms Skin: Reports: No Symptoms. Denies: Cyanosis Neurological: Reports: No Symptoms, Weakness. Denies: Confusion, Pre-Existing Deficit, Difficulty Walking, Gait Disturbance Psychiatric: Reports: No Symptoms - Patient Data Vitals - Most Recent: Last Vital Signs Temp 100.9 F H 06/25/20 04:26 Pulse 81 06/25/20 04:26 Resp 15 06/25/20 04:26 BP 106/49 L 06/25/20 04:26 Pulse Ox 95 06/25/20 06:13 Weight - Most Recent: 182 lb 3.2 oz I&O - Last 24 Hours: Intake & Output 06/24/20 06/25/20 06/25/20 22:59 06:59 14:59 Intake Total 920 1000 Output Total 550 800 Balance 370 200 Lab Results Last 24 Hours: Laboratory Results - last 24 hr 06/24/20 06/24/20 06/25/20 Range/Units 11:50 16:39 05:02 WBC 6.50 (3.98-10.04) K/mm3 RBC 4.07 (3.98-5.22) M/mm3 Hgb 12.1 (11.2-15.7) gm/dl Hct 38.2 (34.1-44.9) % MCV 93.9 (79.4-94.8) fl MCH 29.7 (25.6-32.2) pg MCHC 31.7 L (32.2-35.5) g/dl RDW Std Deviation 42.5 (36.4-46.3) fL Plt Count 222 (182-369) K/mm3 MPV 9.4 (9.4-12.3) fl Neut % (Auto) 58.8 (34.0-71.1) % Lymph % (Auto) 31.8 (19.3-51.7) % Cooper % (Auto) 8.9 (4.7-12.5) % Eos % (Auto) 0 L (0.7-5.8) Baso % (Auto) 0.2 (0.1-1.2) % Neut # (Auto) 3.82 (1.56-6.13) K/mm3 Lymph # (Auto) 2.07 (1.18-3.74) K/mm3 Cooper # (Auto) 0.58 H (0.24-0.36) K/mm3 Eos # (Auto) 0.00 L (0.04-0.36) K/mm3 Baso # (Auto) 0.01 (0.01-0.08) K/mm3 ESR (0-20) mm/hr D-Dimer, Quantitative (0.19-0.50) mg/L Sodium (136-145) mEq/L Potassium (3.5-5.1) mEq/L Chloride (98-107) mEq/L Carbon Dioxide (21-32) mEq/L Anion Gap (5-15) BUN (7-18) mg/dL Creatinine (0.55-1.02) mg/dL Est Cr Clr Drug Dosing mL/min Estimated GFR (MDRD) (>60) mL/min BUN/Creatinine Ratio (14-18) Glucose (80-115) mg/dL POC Glucose 126 H 112 (80-115) mg/dL Calcium (8.5-10.1) mg/dL Magnesium (1.8-2.4) mg/dl Total Bilirubin (0.2-1.0) mg/dL AST (15-37) U/L ALT (14-59) U/L Alkaline Phosphatase (46-116) U/L C-Reactive Protein (<1.0) mg/dL Total Protein (6.4-8.2) g/dl Albumin (3.4-5.0) g/dl Globulin gm/dL Albumin/Globulin Ratio (1-2) 06/25/20 06/25/20 06/25/20 Range/Units 05:02 05:02 05:02 WBC (3.98-10.04) K/mm3 RBC (3.98-5.22) M/mm3 Hgb (11.2-15.7) gm/dl Hct (34.1-44.9) % MCV (79.4-94.8) fl MCH (25.6-32.2) pg MCHC (32.2-35.5) g/dl RDW Std Deviation (36.4-46.3) fL Plt Count (182-369) K/mm3 MPV (9.4-12.3) fl Neut % (Auto) (34.0-71.1) % Lymph % (Auto) (19.3-51.7) % Cooper % (Auto) (4.7-12.5) % Eos % (Auto) (0.7-5.8) Baso % (Auto) (0.1-1.2) % Neut # (Auto) (1.56-6.13) K/mm3 Lymph # (Auto) (1.18-3.74) K/mm3 Cooper # (Auto) (0.24-0.36) K/mm3 Eos # (Auto) (0.04-0.36) K/mm3 Baso # (Auto) (0.01-0.08) K/mm3 ESR 52 H (0-20) mm/hr D-Dimer, Quantitative 0.60 H (0.19-0.50) mg/L Sodium 140 (136-145) mEq/L Potassium 3.8 (3.5-5.1) mEq/L Chloride 102 (98-107) mEq/L Carbon Dioxide 27 (21-32) mEq/L Anion Gap 14.8 (5-15) BUN 10 (7-18) mg/dL Creatinine 0.8 (0.55-1.02) mg/dL Est Cr Clr Drug Dosing 51.75 mL/min Estimated GFR (MDRD) > 60 (>60) mL/min BUN/Creatinine Ratio 12.5 L (14-18) Glucose 97 (80-115) mg/dL POC Glucose (80-115) mg/dL Calcium 8.4 L (8.5-10.1) mg/dL Magnesium 2.2 (1.8-2.4) mg/dl Total Bilirubin 0.3 (0.2-1.0) mg/dL AST 55 H (15-37) U/L ALT 61 H (14-59) U/L Alkaline Phosphatase 72 (46-116) U/L C-Reactive Protein 17.3 H* (<1.0) mg/dL Total Protein 6.6 (6.4-8.2) g/dl Albumin 2.4 L (3.4-5.0) g/dl Globulin 4.2 gm/dL Albumin/Globulin Ratio 0.6 L (1-2) 06/25/20 Range/Units 06:28 WBC (3.98-10.04) K/mm3 RBC (3.98-5.22) M/mm3 Hgb (11.2-15.7) gm/dl Hct (34.1-44.9) % MCV (79.4-94.8) fl MCH (25.6-32.2) pg MCHC (32.2-35.5) g/dl RDW Std Deviation (36.4-46.3) fL Plt Count (182-369) K/mm3 MPV (9.4-12.3) fl Neut % (Auto) (34.0-71.1) % Lymph % (Auto) (19.3-51.7) % Cooper % (Auto) (4.7-12.5) % Eos % (Auto) (0.7-5.8) Baso % (Auto) (0.1-1.2) % Neut # (Auto) (1.56-6.13) K/mm3 Lymph # (Auto) (1.18-3.74) K/mm3 Cooper # (Auto) (0.24-0.36) K/mm3 Eos # (Auto) (0.04-0.36) K/mm3 Baso # (Auto) (0.01-0.08) K/mm3 ESR (0-20) mm/hr D-Dimer, Quantitative (0.19-0.50) mg/L Sodium (136-145) mEq/L Potassium (3.5-5.1) mEq/L Chloride (98-107) mEq/L Carbon Dioxide (21-32) mEq/L Anion Gap (5-15) BUN (7-18) mg/dL Creatinine (0.55-1.02) mg/dL Est Cr Clr Drug Dosing mL/min Estimated GFR (MDRD) (>60) mL/min BUN/Creatinine Ratio (14-18) Glucose (80-115) mg/dL POC Glucose 103 (80-115) mg/dL Calcium (8.5-10.1) mg/dL Magnesium (1.8-2.4) mg/dl Total Bilirubin (0.2-1.0) mg/dL AST (15-37) U/L ALT (14-59) U/L Alkaline Phosphatase (46-116) U/L C-Reactive Protein (<1.0) mg/dL Total Protein (6.4-8.2) g/dl Albumin (3.4-5.0) g/dl Globulin gm/dL Albumin/Globulin Ratio (1-2) Torin Results Last 24 Hours: Microbiology 06/23/20 18:17 Aerobic Blood Culture - Preliminary Blood - Venous - Lab Draw NO GROWTH AFTER 1 DAY Anaerobic Blood Culture - Preliminary NO GROWTH AFTER 1 DAY 06/23/20 18:05 Aerobic Blood Culture - Preliminary Blood - Venous NO GROWTH AFTER 1 DAY Anaerobic Blood Culture - Preliminary NO GROWTH AFTER 1 DAY 06/24/20 09:20 Gram Stain - Final Sputum - Expectorated Sputum Culture - Final Med Orders - Current: Current Medications Acetaminophen (Tylenol) 650 mg RECTAL Q4H PRN PRN Reason: Pain (mild 1-3) Hydrocodone Bitart/Acetaminophen (Everson 325-5 Mg) 1 tab PO Q4H PRN PRN Reason: Pain (moderate 4-6) Albuterol/Ipratropium (Duoneb 3.0-0.5 Mg/3 Ml) 3 ml NEB Q4H PRN PRN Reason: Shortness Of Breath/wheezing Cholecalciferol (Vitamin D3) 5,000 unit PO DAILY [facility] Last Admin: 06/24/20 09:13 Dose: 5,000 unit Documented by: Dexamethasone (Dexamethasone) 6 mg PO DAILY [facility] Stop: 07/02/20 09:01 Last Admin: 06/24/20 09:12 Dose: 6 mg Documented by: Enoxaparin Sodium (Lovenox) 40 mg SUBCUT DAILY [facility] Last Admin: 06/24/20 09:12 Dose: 40 mg Documented by: Famotidine (Pepcid) 20 mg PO BID [facility] Last Admin: 06/24/20 20:24 Dose: 20 mg Documented by: Ferrous Sulfate (Ferrous Sulfate) 324 mg PO TID [facility] Last Admin: 06/24/20 20:26 Dose: 324 mg Documented by: Folic Acid (Folic Acid) 1 mg PO BEDTIME [facility] Guaifenesin/Phenylephrine HCl (Robitussin Dm) 10 ml PO Q4H PRN PRN Reason: Cough Hydromorphone HCl (Dilaudid) 0.25 mg IVPUSH Q2H PRN PRN Reason: Pain (severe 7-10) Promethazine HCl 12.5 mg/ (Sodium Chloride) 50.5 mls @ 100 mls/hr IV Q6H PRN PRN Reason: Nausea/Vomiting Azithromycin 500 mg/ Sodium (Chloride) 250 mls @ 250 mls/hr IV Q24H [facility] Stop: 06/27/20 22:59 Last Admin: 06/24/20 22:50 Dose: 250 mls/hr Documented by: Ceftriaxone Sodium 1 gm/ (Sodium Chloride) 100 mls @ 200 mls/hr IV Q24H [facility] Stop: 06/28/20 22:01 Last Admin: 06/24/20 22:12 Dose: 200 mls/hr Documented by: Insulin Human Lispro (Humalog) 0 unit SUBCUT [facility]; Protocol Last Admin: 06/24/20 18:18 Dose: Not Given Documented by: Ondansetron HCl (Zofran) 4 mg IV Q6H PRN PRN Reason: Nausea/Vomiting Phenytoin Sodium (Phenytoin) 300 mg PO BEDTIME [facility] Last Admin: 06/24/20 20:26 Dose: 300 mg Documented by: Phenytoin Sodium (Dilantin) 30 mg PO BEDTIME [facility] Last Admin: 06/24/20 20:24 Dose: 30 mg Documented by: Polyethylene Glycol (Miralax) 17 gm PO DAILY PRN PRN Reason: Constipation Last Admin: 06/24/20 15:05 Dose: 17 gm Documented by: Senna/Docusate Sodium (Senna Plus) 1 tab PO BID PRN PRN Reason: Constipation Sodium Chloride (Saline Flush) 10 ml FLUSH ASDIRECTED PRN PRN Reason: Keep Vein Open Last Admin: 06/23/20 17:44 Dose: 10 ml Documented by: Vitamin B Complex/Vitamin C (Super B With Vitamin C) 1 cap PO DAILY [facility] Last Admin: 06/24/20 09:13 Dose: 1 cap Documented by: Vitamin E (Vitamin E) 800 units PO DAILY [facility] Last Admin: 06/24/20 09:13 Dose: 800 units Documented by: Zinc Sulfate (Zincate) 220 mg PO DAILY [facility] Last Admin: 06/24/20 09:12 Dose: 220 mg Documented by: Discontinued Medications Acetaminophen (Tylenol) 650 mg PO NOW ONE Stop: 06/23/20 17:51 Last Admin: 06/23/20 18:10 Dose: 650 mg Documented by: Dexamethasone (Decadron) 6 mg IVPUSH ONETIME ONE Stop: 06/23/20 17:51 Last Admin: 06/23/20 18:16 Dose: 6 mg Documented by: Famotidine (Pepcid) 20 mg IVPUSH ONETIME ONE Stop: 06/23/20 21:34 Last Admin: 06/23/20 22:35 Dose: 20 mg Documented by: Folic Acid (Folic Acid) 1 mg PO DAILY [facility] Last Admin: 06/24/20 09:18 Dose: Not Given Documented by: Azithromycin 500 mg/ Sodium (Chloride) 250 mls @ 250 mls/hr IV ONETIME ONE Stop: 06/23/20 22:28 Last Admin: 06/23/20 23:05 Dose: 250 mls/hr Documented by: Ceftriaxone Sodium 1 gm/ (Sodium Chloride) 100 mls @ 200 mls/hr IV ONETIME ONE Stop: 06/23/20 21:57 Last Admin: 06/23/20 22:35 Dose: 200 mls/hr Documented by: Influenza Virus Vaccine (Pharmacy To Dose - Influenza Vaccine) 1 each IM ONETIME ONE Stop: 06/24/20 01:30 Influenza Virus Vaccine (Fluzone High-Dose Quad ) 240 mcg IM .ONCE ONE Stop: 06/24/20 10:01 Phenytoin Sodium (Phenytoin) 300 mg PO ONETIME ONE Stop: 06/23/20 22:31 Last Admin: 06/23/20 22:48 Dose: 300 mg Documented by: Phenytoin Sodium (Dilantin) 30 mg PO ONETIME ONE Stop: 06/23/20 22:31 Last Admin: 06/23/20 22:48 Dose: 30 mg Documented by: - Exam Quality Assessment: Supplemental Oxygen (2L), DVT Prophylaxis. No: Urine Catheter General: Alert, Oriented, Cooperative, No Acute Distress HEENT: Pupils Equal, Pupils Reactive, Mucous Membr. Moist/[place] Neck: Supple, Trachea Midline Lungs: Normal Respiratory Effort, Decreased Breath Sounds Cardiovascular: Regular Rate GI/Abdominal Exam: Normal Bowel Sounds, Soft, Non-Tender, No Distention (Female) Exam: Deferred Back Exam: Normal Inspection, Full Range of Motion Extremities: Normal Inspection, Normal Range of Motion, Non-Tender, No Pedal Edema, Normal Capillary Refill Skin: Warm, Dry, Intact Neurological: No New Focal Deficit Psy/Mental Status: Alert, Normal Affect, Normal Mood Sepsis Event Note - Evaluation Sepsis Screening Result: No Definite Risk - Focused Exam Vital Signs: Vital Signs Temp Pulse Resp BP Pulse Ox Pulse Ox 06/25/20 06:13 95 06/25/20 04:26 100.9 F H 81 15 106/49 L 93 L 06/24/20 21:24 93 L - Problem List & Annotations (1) Constipation SNOMED Code(s): 03008983 Code(s): K59.00 - CONSTIPATION, UNSPECIFIED Status: Acute Priority: High Current Visit: Yes Qualifiers: Constipation type: unspecified constipation type Qualified Code(s): K59.00 - Constipation, unspecified (2) COVID-19 SNOMED Code(s): 621833389 Code(s): U07.1 - COVID-19 Status: Acute Priority: High Current Visit: Yes (3) Hypoxia SNOMED Code(s): 851155961 Code(s): R09.02 - HYPOXEMIA Status: Acute Priority: High Current Visit: Yes (4) Iron deficiency SNOMED Code(s): 80428923 Code(s): E61.1 - IRON DEFICIENCY Status: Chronic Priority: Low Current Visit: No (5) Transaminitis SNOMED Code(s): 207327968, 644995829 Code(s): R74.01 - ELEVATION OF LEVELS OF LIVER TRANSAMINASE LEVELS Status: Acute Priority: Medium Current Visit: Yes (6) Hypoalbuminemia SNOMED Code(s): 807044121 Code(s): E88.09 - OTH DISORDERS OF PLASMA-PROTEIN METABOLISM, NEC Status: Acute Priority: Medium Current Visit: Yes (7) Obesity (BMI 30.0-34.9) SNOMED Code(s): 796278796742465 Code(s): E66.9 - OBESITY, UNSPECIFIED Status: Chronic Priority: Medium Current Visit: Yes - Problem List Review Problem List Initiated/Reviewed/Updated: Yes - Plan Plan:: This is a 69 yo elderly white female with past medical hx/o Seizure disorder,CESAR, hx/o SSS S/p Pacemaker placement, Vit D deficiency and Obesity who comes back for worsening Covid-19 infection primarily with increasing shortness of breathe with non-productive cough. Assessment: Acute: Covid-19 Infection, 05/22/2020, received monoclonal antibody [place] 06/22/20 in ED, has been symptomatic for a week Viral pneumonitis/Atypical pneumonia Hypoxia on 2L NC, improved; now down to 1.5L NC Elevated Liver Enzymes, improved Elevated CRP level of 18.1; essentially the same Elevated proBNP level of 446 Hypoalbuminemia with Albumin of 3.1-->2.6 Mild Proteinuria Mild Ketonuria Class I Obese Resolved: Lymphocytosis with Lymphocytes of 44%, resolved Hyperglycemia with BS of 125, improved/resolved Elevated AG level of 16.8, now 15.2-->14.8 Chronic: Seizure disorder,CESAR, hx/o SSS S/p Pacemaker placement, Vit D deficiency and Obesity Plan: Continue current level. Routine AM Labs. Continue to monitor inflammatory markers. Check phenytoin level. isolation protocol. Empiric IV antibiotic with Azithromycin and Rocephin daily. Dexamethasone daily. PRN decongestant/expectorant. PRN douneb for wheezing and sob. Serial CXR as indicated. Accu-check TIDPC with ISS. Monitor electrolytes and replete as needed. DVT/GI prophylaxis: Lovenox SubQ and H2B. RT to assess respiratory status. IS as directed. Normal Vit D level. Zinc supplement. PT/OT when appropriate. Code status is full. LOS > 96 hrs for treatment of Covid-19 infect ion.
--- NOTE | 2020-06-25 09:07 | CR ---
Chest: Portable view of the chest was obtained. Comparison: Prior chest x-ray of 06/23/20. Continuing areas of increased density are seen within both lungs. No appreciable change is seen from previous study. Heart is mildly enlarged. Tortuous thoracic aorta is seen. Pacemaker is present. Impression: 1. Stable chest x-ray from previous exam of 06/23/20. Diagnostic code #3
[2020-06-25] MEDS: Zinc Sulfate 220 MG Cap PO SCH (09:14)
[2020-06-25] MEDS: Cholecalciferol (Vitamin D3) 5,000 UNIT Cap PO SCH (09:14)
[2020-06-25] MEDS: Ferrous Sulfate 324 MG Tab.EC PO SCH ×3 (09:14→21:12)
[2020-06-25] MEDS: Vitamin E (dl-alpha-tocopherol acetate) 400 Unit Cap PO SCH (09:14)
[2020-06-25] MEDS: Vitamin B Complex With Vitamin C Cap PO SCH (09:14)
[2020-06-25] MEDS: Famotidine 20 MG Tab PO SCH ×2 (09:14→21:17)
[2020-06-25] MEDS: Dexamethasone 4 MG Tab PO SCH (09:14)
[2020-06-25] MEDS: Enoxaparin 40 MG/0.4 ML Syringe SUBCUT SCH (09:15)
[2020-06-25] MEDS: Polyethylene Glycol 3350 Powder 17 GM Packet PO PRN (09:18)
[2020-06-25] MEDS: cefTRIAXone 1 GM in Sodium Chloride 0.9% 100 ML IV SCH (21:08)
[2020-06-25] MEDS: Folic Acid 1 MG Tab PO SCH (21:13)
[2020-06-25] MEDS: Phenytoin 30 MG Cap.ER PO SCH (21:13)
[2020-06-25] MEDS: Phenytoin 100 MG Cap.ER PO SCH (21:14)
[2020-06-25] MEDS: Acetaminophen 325 MG Tab PO PRN (21:46)
[2020-06-25] MEDS: Azithromycin 500 MG in Sodium Chloride 0.9% 250 ML IV SCH (21:49)
[2020-06-26] MEDS: Vitamin E (dl-alpha-tocopherol acetate) 400 Unit Cap PO SCH (09:12)
[2020-06-26] MEDS: Ferrous Sulfate 324 MG Tab.EC PO SCH ×3 (09:13→22:02)
[2020-06-26] MEDS: Famotidine 20 MG Tab PO SCH ×2 (09:13→22:02)
[2020-06-26] MEDS: Enoxaparin 40 MG/0.4 ML Syringe SUBCUT SCH (09:13)
[2020-06-26] MEDS: Vitamin B Complex With Vitamin C Cap PO SCH (09:13)
[2020-06-26] MEDS: Cholecalciferol (Vitamin D3) 5,000 UNIT Cap PO SCH (09:13)
[2020-06-26] MEDS: Dexamethasone 4 MG Tab PO SCH (09:13)
[2020-06-26] MEDS: Zinc Sulfate 220 MG Cap PO SCH (09:13)
--- NOTE | 2020-06-26 11:11 | PCM.PN ---
- General Info Date of Service: 06/26/20 Admission Dx/Problem (Free Text): Admission Diagnosis/Problem Admission Diagnosis/Problem Hypoxia Subjective Update: In to see Kiley. She reports she slept better last night than prior but still not well. She reports she still feels weak. She did have a fever last night of 101.2. Because of this we will continue current treatment with possible discharge in the next 24 to 48 hours. This may very well be a fever due to continued Covid infection but we will continue to treat for concerns over secondary bacterial infection. Labs remained stable. She remains on 1 L of oxygen. AST and ALT have nearly doubled, suspect secondary to Tylenol. Otherwise patient continues to do quite well. Functional Status: Reports: Pain Controlled, Tolerating Diet, Ambulating, Urinating, Incentive Spirometry. Denies: New Symptoms - Review of Systems General: Reports: No Symptoms, Weakness, Fatigue, Malaise. Denies: Fever, Chills HEENT: Reports: No Symptoms. Denies: Headaches, Sore Throat Pulmonary: Reports: No Symptoms. Denies: Shortness of Breath, Cough, Sputum, Wheezing Cardiovascular: Reports: No Symptoms. Denies: Chest Pain, Palpitations, Edema Gastrointestinal: Reports: No Symptoms. Denies: Abdominal Pain, Constipation, Diarrhea, Nausea, Vomiting Genitourinary: Reports: No Symptoms. Denies: Pain Musculoskeletal: Reports: No Symptoms Skin: Reports: No Symptoms. Denies: Cyanosis Neurological: Reports: No Symptoms, Weakness. Denies: Confusion, Pre-Existing Deficit, Difficulty Walking, Gait Disturbance Psychiatric: Reports: No Symptoms - Patient Data Vitals - Most Recent: Last Vital Signs Temp 98.6 F 06/26/20 07:25 Pulse 79 06/26/20 07:25 Resp 18 06/26/20 07:25 BP 145/89 H 06/26/20 07:25 Pulse Ox 90 L 06/26/20 07:25 Weight - Most Recent: 180 lb 6.4 oz I&O - Last 24 Hours: Intake & Output 06/25/20 06/26/20 06/26/20 22:59 06:59 14:59 Intake Total 830 850 Output Total 1000 Balance 830 -150 Lab Results Last 24 Hours: Laboratory Results - last 24 hr 06/25/20 06/25/20 06/26/20 Range/Units 11:35 17:01 05:54 WBC 5.44 (3.98-10.04) K/mm3 RBC 4.38 (3.98-5.22) M/mm3 Hgb 13.1 (11.2-15.7) gm/dl Hct 41.5 (34.1-44.9) % MCV 94.7 (79.4-94.8) fl MCH 29.9 (25.6-32.2) pg MCHC 31.6 L (32.2-35.5) g/dl RDW Std Deviation 43.4 (36.4-46.3) fL Plt Count 252 (182-369) K/mm3 MPV 9.2 L (9.4-12.3) fl Neut % (Auto) 47.7 (34.0-71.1) % Lymph % (Auto) 39.2 (19.3-51.7) % Burt % (Auto) 11.6 (4.7-12.5) % Eos % (Auto) 0.7 (0.7-5.8) Baso % (Auto) 0.2 (0.1-1.2) % Neut # (Auto) 2.60 (1.56-6.13) K/mm3 Lymph # (Auto) 2.13 (1.18-3.74) K/mm3 Burt # (Auto) 0.63 H (0.24-0.36) K/mm3 Eos # (Auto) 0.04 (0.04-0.36) K/mm3 Baso # (Auto) 0.01 (0.01-0.08) K/mm3 Sodium (136-145) mEq/L Potassium (3.5-5.1) mEq/L Chloride (98-107) mEq/L Carbon Dioxide (21-32) mEq/L Anion Gap (5-15) BUN (7-18) mg/dL Creatinine (0.55-1.02) mg/dL Est Cr Clr Drug Dosing mL/min Estimated GFR (MDRD) (>60) mL/min BUN/Creatinine Ratio (14-18) Glucose (80-115) mg/dL POC Glucose 142 H 97 (80-115) mg/dL Calcium (8.5-10.1) mg/dL Magnesium (1.8-2.4) mg/dl Total Bilirubin (0.2-1.0) mg/dL AST (15-37) U/L ALT (14-59) U/L Alkaline Phosphatase (46-116) U/L C-Reactive Protein (<1.0) mg/dL Total Protein (6.4-8.2) g/dl Albumin (3.4-5.0) g/dl Globulin gm/dL Albumin/Globulin Ratio (1-2) 06/26/20 06/26/20 Range/Units 05:54 06:37 WBC (3.98-10.04) K/mm3 RBC (3.98-5.22) M/mm3 Hgb (11.2-15.7) gm/dl Hct (34.1-44.9) % MCV (79.4-94.8) fl MCH (25.6-32.2) pg MCHC (32.2-35.5) g/dl RDW Std Deviation (36.4-46.3) fL Plt Count (182-369) K/mm3 MPV (9.4-12.3) fl Neut % (Auto) (34.0-71.1) % Lymph % (Auto) (19.3-51.7) % Burt % (Auto) (4.7-12.5) % Eos % (Auto) (0.7-5.8) Baso % (Auto) (0.1-1.2) % Neut # (Auto) (1.56-6.13) K/mm3 Lymph # (Auto) (1.18-3.74) K/mm3 Burt # (Auto) (0.24-0.36) K/mm3 Eos # (Auto) (0.04-0.36) K/mm3 Baso # (Auto) (0.01-0.08) K/mm3 Sodium 143 (136-145) mEq/L Potassium 4.0 (3.5-5.1) mEq/L Chloride 105 (98-107) mEq/L Carbon Dioxide 27 (21-32) mEq/L Anion Gap 15.0 (5-15) BUN 11 (7-18) mg/dL Creatinine 0.7 (0.55-1.02) mg/dL Est Cr Clr Drug Dosing 59.15 mL/min Estimated GFR (MDRD) > 60 (>60) mL/min BUN/Creatinine Ratio 15.7 (14-18) Glucose 89 (80-115) mg/dL POC Glucose 97 (80-115) mg/dL Calcium 9.1 (8.5-10.1) mg/dL Magnesium 2.4 (1.8-2.4) mg/dl Total Bilirubin 0.3 (0.2-1.0) mg/dL AST 103 H (15-37) U/L ALT 105 H (14-59) U/L Alkaline Phosphatase 88 (46-116) U/L C-Reactive Protein 17.5 H* (<1.0) mg/dL Total Protein 7.2 (6.4-8.2) g/dl Albumin 2.5 L (3.4-5.0) g/dl Globulin 4.7 gm/dL Albumin/Globulin Ratio 0.5 L (1-2) Torin Results Last 24 Hours: Microbiology 06/23/20 18:17 Aerobic Blood Culture - Preliminary Blood - Venous - Lab Draw NO GROWTH AFTER 2 DAYS Anaerobic Blood Culture - Preliminary NO GROWTH AFTER 2 DAYS 06/23/20 18:05 Aerobic Blood Culture - Preliminary Blood - Venous NO GROWTH AFTER 2 DAYS Anaerobic Blood Culture - Preliminary NO GROWTH AFTER 2 DAYS Med Orders - Current: Current Medications Acetaminophen (Tylenol) 650 mg PO Q4H PRN PRN Reason: Pain/Fever Last Admin: 06/25/20 21:46 Dose: 650 mg Documented by: Hydrocodone Bitart/Acetaminophen ([place] 325-5 Mg) 1 tab PO Q4H PRN PRN Reason: Pain (moderate 4-6) Albuterol/Ipratropium (Duoneb 3.0-0.5 Mg/3 Ml) 3 ml NEB Q4H PRN PRN Reason: Shortness Of Breath/wheezing Cholecalciferol (Vitamin D3) 5,000 unit PO DAILY [facility] Last Admin: 06/26/20 09:13 Dose: 5,000 unit Documented by: Dexamethasone (Dexamethasone) 6 mg PO DAILY [facility] Stop: 07/02/20 09:01 Last Admin: 06/26/20 09:13 Dose: 6 mg Documented by: Enoxaparin Sodium (Lovenox) 40 mg SUBCUT DAILY [facility] Last Admin: 06/26/20 09:13 Dose: 40 mg Documented by: Famotidine (Pepcid) 20 mg PO BID [facility] Last Admin: 06/26/20 09:13 Dose: 20 mg Documented by: Ferrous Sulfate (Ferrous Sulfate) 324 mg PO TID [facility] Last Admin: 06/26/20 09:13 Dose: 324 mg Documented by: Folic Acid (Folic Acid) 1 mg PO BEDTIME [facility] Last Admin: 06/25/20 21:13 Dose: 1 mg Documented by: Guaifenesin/Phenylephrine HCl (Robitussin Dm) 10 ml PO Q4H PRN PRN Reason: Cough Hydromorphone HCl (Dilaudid) 0.25 mg IVPUSH Q2H PRN PRN Reason: Pain (severe 7-10) Promethazine HCl 12.5 mg/ (Sodium Chloride) 50.5 mls @ 100 mls/hr IV Q6H PRN PRN Reason: Nausea/Vomiting Azithromycin 500 mg/ Sodium (Chloride) 250 mls @ 250 mls/hr IV Q24H [facility] Stop: 06/27/20 22:59 Last Admin: 06/25/20 21:49 Dose: 250 mls/hr Documented by: Ceftriaxone Sodium 1 gm/ (Sodium Chloride) 100 mls @ 200 mls/hr IV Q24H [facility] Stop: 06/28/20 22:01 Last Admin: 06/25/20 21:08 Dose: 200 mls/hr Documented by: Insulin Human [facility] Protocol Last Admin: 06/26/20 09:16 Dose: Not Given Documented by: Ondansetron HCl (Zofran) 4 mg IV Q6H PRN PRN Reason: Nausea/Vomiting Phenytoin Sodium (Phenytoin) 300 mg PO BEDTIME [facility] Last Admin: 06/25/20 21:14 Dose: 300 mg Documented by: Phenytoin Sodium (Dilantin) 30 mg PO BEDTIME [facility] Last Admin: 06/25/20 21:13 Dose: 30 mg Documented by: Polyethylene Glycol (Miralax) 17 gm PO DAILY PRN PRN Reason: Constipation Last Admin: 06/25/20 09:18 Dose: 17 gm Documented by: Senna/Docusate Sodium (Senna Plus) 2 tab PO BID [facility] Last Admin: 06/26/20 09:12 Dose: 2 tab Documented by: Sodium Chloride (Saline Flush) 10 ml FLUSH ASDIRECTED PRN PRN Reason: Keep Vein Open Last Admin: 06/23/20 17:44 Dose: 10 ml Documented by: Vitamin B Complex/Vitamin C (Super B With Vitamin C) 1 cap PO DAILY [facility] Last Admin: 06/26/20 09:13 Dose: 1 cap Documented by: Vitamin E (Vitamin E) 800 units PO DAILY [facility] Last Admin: 06/26/20 09:12 Dose: 800 units Documented by: Zinc Sulfate (Zincate) 220 mg PO DAILY [facility] Last Admin: 06/26/20 09:13 Dose: 220 mg Documented by: Discontinued Medications Acetaminophen (Tylenol) 650 mg PO NOW ONE Stop: 06/23/20 17:51 Last Admin: 06/23/20 18:10 Dose: 650 mg Documented by: Acetaminophen (Tylenol) 650 mg RECTAL Q4H PRN PRN Reason: Pain (mild 1-3) Dexamethasone (Decadron) 6 mg IVPUSH ONETIME ONE Stop: 06/23/20 17:51 Last Admin: 06/23/20 18:16 Dose: 6 mg Documented by: Famotidine (Pepcid) 20 mg IVPUSH ONETIME ONE Stop: 06/23/20 21:34 Last Admin: 06/23/20 22:35 Dose: 20 mg Documented by: Folic Acid (Folic Acid) 1 mg PO DAILY [facility] Last Admin: 06/24/20 09:18 Dose: Not Given Documented by: Azithromycin 500 mg/ Sodium (Chloride) 250 mls @ 250 mls/hr IV ONETIME ONE Stop: 06/23/20 22:28 Last Admin: 06/23/20 23:05 Dose: 250 mls/hr Documented by: Ceftriaxone Sodium 1 gm/ (Sodium Chloride) 100 mls @ 200 mls/hr IV ONETIME ONE Stop: 06/23/20 21:57 Last Admin: 06/23/20 22:35 Dose: 200 mls/hr Documented by: Influenza Virus Vaccine (Pharmacy To Dose - Influenza Vaccine) 1 each IM ONETIME ONE Stop: 06/24/20 01:30 Influenza Virus Vaccine (Fluzone High-Dose Quad ) 240 mcg IM .ONCE ONE Stop: 06/24/20 10:01 Phenytoin Sodium (Phenytoin) 300 mg PO ONETIME ONE Stop: 06/23/20 22:31 Last Admin: 06/23/20 22:48 Dose: 300 mg Documented by: Phenytoin Sodium (Dilantin) 30 mg PO ONETIME ONE Stop: 06/23/20 22:31 Last Admin: 06/23/20 22:48 Dose: 30 mg Documented by: Senna/Docusate Sodium (Senna Plus) 1 tab PO BID PRN PRN Reason: Constipation Senna/Docusate Sodium (Senna Plus) 1 tab PO BID JUAN - Exam Quality Assessment: Supplemental Oxygen (1L ), DVT Prophylaxis. No: Urine Catheter General: Alert, Oriented, Cooperative, No Acute Distress HEENT: Pupils Equal, Pupils Reactive, Mucous Membr. Moist/[place] Neck: Supple, Trachea Midline Lungs: Normal Respiratory Effort, Decreased Breath Sounds Cardiovascular: Regular Rate, Regular Rhythm GI/Abdominal Exam: Normal Bowel Sounds, Soft, Non-Tender, No Distention (Female) Exam: Deferred Back Exam: Normal Inspection, Full Range of Motion Extremities: Normal Inspection, Normal Range of Motion, Non-Tender, No Pedal Edema Skin: Warm, Dry, Intact Neurological: No New Focal Deficit Psy/Mental Status: Alert - Patient Data Lab Results Last 24 hrs: Laboratory Results - last 24 hr 06/25/20 06/25/20 06/26/20 Range/Units 11:35 17:01 05:54 WBC 5.44 (3.98-10.04) K/mm3 RBC 4.38 (3.98-5.22) M/mm3 Hgb 13.1 (11.2-15.7) gm/dl Hct 41.5 (34.1-44.9) % MCV 94.7 (79.4-94.8) fl MCH 29.9 (25.6-32.2) pg MCHC 31.6 L (32.2-35.5) g/dl RDW Std Deviation 43.4 (36.4-46.3) fL Plt Count 252 (182-369) K/mm3 MPV 9.2 L (9.4-12.3) fl Neut % (Auto) 47.7 (34.0-71.1) % Lymph % (Auto) 39.2 (19.3-51.7) % Burt % (Auto) 11.6 (4.7-12.5) % Eos % (Auto) 0.7 (0.7-5.8) Baso % (Auto) 0.2 (0.1-1.2) % Neut # (Auto) 2.60 (1.56-6.13) K/mm3 Lymph # (Auto) 2.13 (1.18-3.74) K/mm3 Burt # (Auto) 0.63 H (0.24-0.36) K/mm3 Eos # (Auto) 0.04 (0.04-0.36) K/mm3 Baso # (Auto) 0.01 (0.01-0.08) K/mm3 Sodium (136-145) mEq/L Potassium (3.5-5.1) mEq/L Chloride (98-107) mEq/L Carbon Dioxide (21-32) mEq/L Anion Gap (5-15) BUN (7-18) mg/dL Creatinine (0.55-1.02) mg/dL Est Cr Clr Drug Dosing mL/min Estimated GFR (MDRD) (>60) mL/min BUN/Creatinine Ratio (14-18) Glucose (80-115) mg/dL POC Glucose 142 H 97 (80-115) mg/dL Calcium (8.5-10.1) mg/dL Magnesium (1.8-2.4) mg/dl Total Bilirubin (0.2-1.0) mg/dL AST (15-37) U/L ALT (14-59) U/L Alkaline Phosphatase (46-116) U/L C-Reactive Protein (<1.0) mg/dL Total Protein (6.4-8.2) g/dl Albumin (3.4-5.0) g/dl Globulin gm/dL Albumin/Globulin Ratio (1-2) 06/26/20 06/26/20 Range/Units 05:54 06:37 WBC (3.98-10.04) K/mm3 RBC (3.98-5.22) M/mm3 Hgb (11.2-15.7) gm/dl Hct (34.1-44.9) % MCV (79.4-94.8) fl MCH (25.6-32.2) pg MCHC (32.2-35.5) g/dl RDW Std Deviation (36.4-46.3) fL Plt Count (182-369) K/mm3 MPV (9.4-12.3) fl Neut % (Auto) (34.0-71.1) % Lymph % (Auto) (19.3-51.7) % Burt % (Auto) (4.7-12.5) % Eos % (Auto) (0.7-5.8) Baso % (Auto) (0.1-1.2) % Neut # (Auto) (1.56-6.13) K/mm3 Lymph # (Auto) (1.18-3.74) K/mm3 Burt # (Auto) (0.24-0.36) K/mm3 Eos # (Auto) (0.04-0.36) K/mm3 Baso # (Auto) (0.01-0.08) K/mm3 Sodium 143 (136-145) mEq/L Potassium 4.0 (3.5-5.1) mEq/L Chloride 105 (98-107) mEq/L Carbon Dioxide 27 (21-32) mEq/L Anion Gap 15.0 (5-15) BUN 11 (7-18) mg/dL Creatinine 0.7 (0.55-1.02) mg/dL Est Cr Clr Drug Dosing 59.15 mL/min Estimated GFR (MDRD) > 60 (>60) mL/min BUN/Creatinine Ratio 15.7 (14-18) Glucose 89 (80-115) mg/dL POC Glucose 97 (80-115) mg/dL Calcium 9.1 (8.5-10.1) mg/dL Magnesium 2.4 (1.8-2.4) mg/dl Total Bilirubin 0.3 (0.2-1.0) mg/dL AST 103 H (15-37) U/L ALT 105 H (14-59) U/L Alkaline Phosphatase 88 (46-116) U/L C-Reactive Protein 17.5 H* (<1.0) mg/dL Total Protein 7.2 (6.4-8.2) g/dl Albumin 2.5 L (3.4-5.0) g/dl Globulin 4.7 gm/dL Albumin/Globulin Ratio 0.5 L (1-2) Result Diagrams: 06/26/20 05:54 06/26/20 05:54 Torin Results Last 24 hrs: Microbiology 06/23/20 18:17 Aerobic Blood Culture - Preliminary Blood - Venous - Lab Draw NO GROWTH AFTER 2 DAYS Anaerobic Blood Culture - Preliminary NO GROWTH AFTER 2 DAYS 06/23/20 18:05 Aerobic Blood Culture - Preliminary Blood - Venous NO GROWTH AFTER 2 DAYS Anaerobic Blood Culture - Preliminary NO GROWTH AFTER 2 DAYS Sepsis Event Note - Evaluation Sepsis Screening Result: No Definite Risk - Focused Exam Vital Signs: Vital Signs Temp Pulse Resp BP Pulse Ox 06/26/20 07:25 98.6 F 79 18 145/89 H 90 L 06/26/20 03:15 97.5 F 72 16 97/76 93 L - Problem List & Annotations (1) Constipation SNOMED Code(s): 73654438 Code(s): K59.00 - CONSTIPATION, UNSPECIFIED Status: Acute Priority: High Current Visit: Yes Qualifiers: Constipation type: unspecified constipation type Qualified Code(s): K59.00 - Constipation, unspecified (2) COVID-19 SNOMED Code(s): 402600572 Code(s): U07.1 - COVID-19 Status: Acute Priority: High Current Visit: Yes (3) Hypoxia SNOMED Code(s): 428971568 Code(s): R09.02 - HYPOXEMIA Status: Acute Priority: High Current Visit: Yes (4) Iron deficiency SNOMED Code(s): 11752001 Code(s): E61.1 - IRON DEFICIENCY Status: Chronic Priority: Low Current Visit: No (5) Transaminitis SNOMED Code(s): 281057813, 217763278 Code(s): R74.01 - ELEVATION OF LEVELS OF LIVER TRANSAMINASE LEVELS Status: Acute Priority: Medium Current Visit: Yes (6) Hypoalbuminemia SNOMED Code(s): 425785789 Code(s): E88.09 - OTH DISORDERS OF PLASMA-PROTEIN METABOLISM, NEC Status: Acute Priority: Medium Current Visit: Yes (7) Obesity (BMI 30.0-34.9) SNOMED Code(s): 677781371141254 Code(s): E66.9 - OBESITY, UNSPECIFIED Status: Chronic Priority: Medium Current Visit: Yes - Problem List Review Problem List Initiated/Reviewed/Updated: Yes - My Orders Last 24 Hours: My Active Orders 06/25/20 12:52 Communication Order [RC] ROUTINE 06/25/20 13:00 Docusate Sodium/Sennosides [Senna Plus] 2 tab PO BID - Plan Plan:: This is a 69 yo elderly white female with past medical hx/o Seizure disorder, CESAR, hx/o SSS S/p Pacemaker placement, Vit D deficiency and Obesity who comes back for worsening Covid-19 infection primarily with increasing shortness of breathe with non-productive cough. Assessment: Acute: Covid-19 Infection, 05/22/2020, received monoclonal antibody [place] 06/22/20 in ED, has been symptomatic for a week Viral pneumonitis/Atypical pneumonia Hypoxia on 2L NC, improved; now down to 1L NC Elevated Liver Enzymes, mildly worse today Elevated CRP level of 18.1; essentially the same Elevated proBNP level of 446 Hypoalbuminemia with Albumin of 3.1-->2.6-->2.4--->2.5 Mild Proteinuria Mild Ketonuria Class I Obese Resolved: Lymphocytosis with Lymphocytes of 44%, resolved Hyperglycemia with BS of 125, improved/resolved Elevated AG level of 16.8, now 15.2-->14.8 Chronic: Seizure disorder,CESRA, hx/o SSS S/p Pacemaker placement, Vit D deficiency and Obesity Plan: Continue current level. Routine AM Labs. Continue to monitor inflammatory markers. Check phenytoin level. isolation protocol. Empiric IV antibiotic with Azithromycin and Rocephin daily. Dexamethasone daily. PRN decon gestant/expectorant. PRN douneb for wheezing and sob. Serial CXR as indicated. Accu-check TIDPC with ISS. Monitor electrolytes and replete as needed. DVT/GI prophylaxis: Lovenox SubQ and H2B. RT to assess respiratory status. IS as directed. Normal Vit D level. Zinc supplement. PT/OT when appropriate. Code status is full. LOS > 96 hrs for treatment of Covid-19 infection. Hopeful for discharge in next 24-48 hours
[2020-06-26] MEDS: cefTRIAXone 1 GM in Sodium Chloride 0.9% 100 ML IV SCH (21:57)
[2020-06-26] MEDS: Azithromycin 500 MG in Sodium Chloride 0.9% 250 ML IV SCH (21:57)
[2020-06-26] MEDS: Phenytoin 100 MG Cap.ER PO SCH (22:00)
[2020-06-26] MEDS: Phenytoin 30 MG Cap.ER PO SCH (22:01)
[2020-06-26] MEDS: Folic Acid 1 MG Tab PO SCH (22:02)
--- NOTE | 2020-06-27 08:04 | CR ---
Chest: Portable view of the chest was obtained. Comparison: Prior chest x-ray of 06/25/20. Increasing density is noted on both sides of the chest. These densities show slight increasing opacification but are otherwise similar. Heart is enlarged. Pulmonary vessels show prominence. Prior pacemaker is noted. Bony structures are grossly intact. Impression: 1. Patchy areas of increased density on both sides of the chest. These findings have increased in opacification but are otherwise stable in location. 2. Cardiomegaly is stable with prior pacemaker. 3. Pulmonary vessels are slightly congested most likely representing mild CHF. Diagnostic code #3
[2020-06-27] MEDS: Vitamin E (dl-alpha-tocopherol acetate) 400 Unit Cap PO SCH (09:50)
[2020-06-27] MEDS: Famotidine 20 MG Tab PO SCH ×2 (09:51→21:24)
[2020-06-27] MEDS: Vitamin B Complex With Vitamin C Cap PO SCH (09:51)
[2020-06-27] MEDS: Dexamethasone 4 MG Tab PO SCH (09:52)
[2020-06-27] MEDS: Zinc Sulfate 220 MG Cap PO SCH (09:52)
[2020-06-27] MEDS: Ferrous Sulfate 324 MG Tab.EC PO SCH ×3 (09:53→21:24)
[2020-06-27] MEDS: Cholecalciferol (Vitamin D3) 5,000 UNIT Cap PO SCH (09:53)
[2020-06-27] MEDS: Enoxaparin 40 MG/0.4 ML Syringe SUBCUT SCH (09:54)
--- NOTE | 2020-06-27 10:21 | PCM.PN ---
- General Info Date of Service: 06/27/20 Subjective Update: Patient was 93 % on RA today, has to be pushed to do IS x 15 several sets daily. Wants to sleep and avoid ambulation. Functional Status: Reports: Tolerating Diet, Ambulating - Review of Systems General: Reports: No Symptoms HEENT: Reports: No Symptoms Pulmonary: Reports: No Symptoms Cardiovascular: Reports: No Symptoms Gastrointestinal: Reports: No Symptoms Genitourinary: Reports: No Symptoms Musculoskeletal: Reports: No Symptoms Skin: Reports: No Symptoms Neurological: Reports: No Symptoms Psychiatric: Reports: No Symptoms - Patient Data Vitals - Most Recent: Last Vital Signs Temp 36.9 C 06/27/20 09:49 Pulse 85 06/27/20 09:49 Resp 16 06/27/20 09:49 BP 133/62 06/27/20 09:49 Pulse Ox 92 L 06/27/20 09:49 Weight - Most Recent: 81.556 kg I&O - Last 24 Hours: Intake & Output 06/26/20 06/27/20 06/27/20 22:59 06:59 14:59 Intake Total 800 750 Output Total 300 825 Balance 500 -75 Lab Results Last 24 Hours: Laboratory Results - last 24 hr 06/25/20 06/26/20 06/27/20 Range/Units 05:02 11:48 04:42 WBC 6.05 (3.98-10.04) K/mm3 RBC 4.04 (3.98-5.22) M/mm3 Hgb 12.1 (11.2-15.7) gm/dl Hct 38.1 (34.1-44.9) % MCV 94.3 (79.4-94.8) fl MCH 30.0 (25.6-32.2) pg MCHC 31.8 L (32.2-35.5) g/dl RDW Std Deviation 42.8 (36.4-46.3) fL Plt Count 294 (182-369) K/mm3 MPV 8.7 L (9.4-12.3) fl Neut % (Auto) 64.5 (34.0-71.1) % Lymph % (Auto) 22.1 (19.3-51.7) % [place] % (Auto) 12.2 (4.7-12.5) % Eos % (Auto) 0.5 L (0.7-5.8) Baso % (Auto) 0.2 (0.1-1.2) % Neut # (Auto) 3.90 (1.56-6.13) K/mm3 Lymph # (Auto) 1.34 (1.18-3.74) K/mm3 [place] # (Auto) 0.74 H (0.24-0.36) K/mm3 Eos # (Auto) 0.03 L (0.04-0.36) K/mm3 Baso # (Auto) 0.01 (0.01-0.08) K/mm3 D-Dimer, Quantitative (0.19-0.50) mg/L Sodium (136-145) mEq/L Potassium (3.5-5.1) mEq/L Chloride (98-107) mEq/L Carbon Dioxide (21-32) mEq/L Anion Gap (5-15) BUN (7-18) mg/dL Creatinine (0.55-1.02) mg/dL Est Cr Clr Drug Dosing mL/min Estimated GFR (MDRD) (>60) mL/min BUN/Creatinine Ratio (14-18) Glucose (80-115) mg/dL POC Glucose 118 H (80-115) mg/dL Lactic Acid (0.4-2.0) mmol/L Calcium (8.5-10.1) mg/dL Magnesium (1.8-2.4) mg/dl Total Bilirubin (0.2-1.0) mg/dL AST (15-37) U/L ALT (14-59) U/L Alkaline Phosphatase (46-116) U/L C-Reactive Protein (<1.0) mg/dL Total Protein (6.4-8.2) g/dl Albumin (3.4-5.0) g/dl Globulin gm/dL Albumin/Globulin Ratio (1-2) Phenytoin 10.0 (10.0-20.0) ug/mL Mycoplasma pneumon IgM (NEGATIVE) 06/27/20 06/27/20 06/27/20 Range/Units 04:42 04:42 04:42 WBC (3.98-10.04) K/mm3 RBC (3.98-5.22) M/mm3 Hgb (11.2-15.7) gm/dl Hct (34.1-44.9) % MCV (79.4-94.8) fl MCH (25.6-32.2) pg MCHC (32.2-35.5) g/dl RDW Std Deviation (36.4-46.3) fL Plt Count (182-369) K/mm3 MPV (9.4-12.3) fl Neut % (Auto) (34.0-71.1) % Lymph % (Auto) (19.3-51.7) % [place] % (Auto) (4.7-12.5) % Eos % (Auto) (0.7-5.8) Baso % (Auto) (0.1-1.2) % Neut # (Auto) (1.56-6.13) K/mm3 Lymph # (Auto) (1.18-3.74) K/mm3 [place] # (Auto) (0.24-0.36) K/mm3 Eos # (Auto) (0.04-0.36) K/mm3 Baso # (Auto) (0.01-0.08) K/mm3 D-Dimer, Quantitative 1.03 H (0.19-0.50) mg/L Sodium 141 (136-145) mEq/L Potassium 4.0 (3.5-5.1) mEq/L Chloride 102 (98-107) mEq/L Carbon Dioxide 25 (21-32) mEq/L Anion Gap 18.0 H (5-15) BUN 9 (7-18) mg/dL Creatinine 0.7 (0.55-1.02) mg/dL Est Cr Clr Drug Dosing 59.15 mL/min Estimated GFR (MDRD) > 60 (>60) mL/min BUN/Creatinine Ratio 12.9 L (14-18) Glucose 97 (80-115) mg/dL POC Glucose (80-115) mg/dL Lactic Acid (0.4-2.0) mmol/L Calcium 8.8 (8.5-10.1) mg/dL Magnesium 2.3 (1.8-2.4) mg/dl Total Bilirubin 0.3 (0.2-1.0) mg/dL AST 57 H (15-37) U/L ALT 83 H (14-59) U/L Alkaline Phosphatase 85 (46-116) U/L C-Reactive Protein 17.9 H* (<1.0) mg/dL Total Protein 6.9 (6.4-8.2) g/dl Albumin 2.3 L (3.4-5.0) g/dl Globulin 4.6 gm/dL Albumin/Globulin Ratio 0.5 L (1-2) Phenytoin (10.0-20.0) ug/mL Mycoplasma pneumon IgM Negative (NEGATIVE) 06/27/20 Range/Units 04:42 WBC (3.98-10.04) K/mm3 RBC (3.98-5.22) M/mm3 Hgb (11.2-15.7) gm/dl Hct (34.1-44.9) % MCV (79.4-94.8) fl MCH (25.6-32.2) pg MCHC (32.2-35.5) g/dl RDW Std Deviation (36.4-46.3) fL Plt Count (182-369) K/mm3 MPV (9.4-12.3) fl Neut % (Auto) (34.0-71.1) % Lymph % (Auto) (19.3-51.7) % [place] % (Auto) (4.7-12.5) % Eos % (Auto) (0.7-5.8) Baso % (Auto) (0.1-1.2) % Neut # (Auto) (1.56-6.13) K/mm3 Lymph # (Auto) (1.18-3.74) K/mm3 [place] # (Auto) (0.24-0.36) K/mm3 Eos # (Auto) (0.04-0.36) K/mm3 Baso # (Auto) (0.01-0.08) K/mm3 D-Dimer, Quantitative (0.19-0.50) mg/L Sodium (136-145) mEq/L Potassium (3.5-5.1) mEq/L Chloride (98-107) mEq/L Carbon Dioxide (21-32) mEq/L Anion Gap (5-15) BUN (7-18) mg/dL Creatinine (0.55-1.02) mg/dL Est Cr Clr Drug Dosing mL/min Estimated GFR (MDRD) (>60) mL/min BUN/Creatinine Ratio (14-18) Glucose (80-115) mg/dL POC Glucose (80-115) mg/dL Lactic Acid 0.9 (0.4-2.0) mmol/L Calcium (8.5-10.1) mg/dL Magnesium (1.8-2.4) mg/dl Total Bilirubin (0.2-1.0) mg/dL AST (15-37) U/L ALT (14-59) U/L Alkaline Phosphatase (46-116) U/L C-Reactive Protein (<1.0) mg/dL Total Protein (6.4-8.2) g/dl Albumin (3.4-5.0) g/dl Globulin gm/dL Albumin/Globulin Ratio (1-2) Phenytoin (10.0-20.0) ug/mL Mycoplasma pneumon IgM (NEGATIVE) [place] Results Last 24 Hours: Microbiology 06/23/20 18:17 Aerobic Blood Culture - Preliminary Blood - Venous - Lab Draw NO GROWTH AFTER 3 DAYS Anaerobic Blood Culture - Preliminary NO GROWTH AFTER 3 DAYS 06/23/20 18:05 Aerobic Blood Culture - Preliminary Blood - Venous NO GROWTH AFTER 3 DAYS Anaerobic Blood Culture - Preliminary NO GROWTH AFTER 3 DAYS Med Orders - Current: Current Medications Acetaminophen (Tylenol) 650 mg PO Q4H PRN PRN Reason: Pain/Fever Last Admin: 06/25/20 21:46 Dose: 650 mg Documented by: Hydrocodone Bitart/Acetaminophen ([place] 325-5 Mg) 1 tab PO Q4H PRN PRN Reason: Pain (moderate 4-6) Albuterol/Ipratropium (Duoneb 3.0-0.5 Mg/3 Ml) 3 ml NEB Q4H PRN PRN Reason: Shortness Of Breath/wheezing Cholecalciferol (Vitamin D3) 5,000 unit PO DAILY [facility] Last Admin: 06/27/20 09:53 Dose: 5,000 unit Documented by: Dexamethasone (Dexamethasone) 6 mg PO DAILY [facility] Stop: 07/02/20 09:01 Last Admin: 06/27/20 09:52 Dose: 6 mg Documented by: Enoxaparin Sodium (Lovenox) 40 mg SUBCUT DAILY [facility] Last Admin: 06/27/20 09:54 Dose: 40 mg Documented by: Famotidine (Pepcid) 20 mg PO BID [facility] Last Admin: 06/27/20 09:51 Dose: 20 mg Documented by: Ferrous Sulfate (Ferrous Sulfate) 324 mg PO TID [facility] Last Admin: 06/27/20 09:53 Dose: 324 mg Documented by: Folic Acid (Folic Acid) 1 mg PO BEDTIME [facility] Last Admin: 06/26/20 22:02 Dose: 1 mg Documented by: Guaifenesin/Phenylephrine HCl (Robitussin Dm) 10 ml PO Q4H PRN PRN Reason: Cough Hydromorphone HCl (Dilaudid) 0.25 mg IVPUSH Q2H PRN PRN Reason: Pain (severe 7-10) Promethazine HCl 12.5 mg/ (Sodium Chloride) 50.5 mls @ 100 mls/hr IV Q6H PRN PRN Reason: Nausea/Vomiting Azithromycin 500 mg/ Sodium (Chloride) 250 mls @ 250 mls/hr IV Q24H [facility] Stop: 06/27/20 22:59 Last Admin: 06/26/20 21:57 Dose: 250 mls/hr Documented by: Ceftriaxone Sodium 1 gm/ (Sodium Chloride) 100 mls @ 200 mls/hr IV Q24H [facility] Stop: 06/28/20 22:01 Last Admin: 06/26/20 21:57 Dose: 200 mls/hr Documented by: Ondansetron HCl (Zofran) 4 mg IV Q6H PRN PRN Reason: Nausea/Vomiting Phenytoin Sodium (Phenytoin) 300 mg PO BEDTIME [facility] Last Admin: 06/26/20 22:00 Dose: 300 mg Documented by: Phenytoin Sodium (Dilantin) 30 mg PO BEDTIME [facility] Last Admin: 06/26/20 22:01 Dose: 30 mg Documented by: Polyethylene Glycol (Miralax) 17 gm PO DAILY PRN PRN Reason: Constipation Last Admin: 06/25/20 09:18 Dose: 17 gm Documented by: Senna/Docusate Sodium (Senna Plus) 1 tab PO DAILY [facility] Last Admin: 06/27/20 09:51 Dose: Not Given Documented by: Sodium Chloride (Saline Flush) 10 ml FLUSH ASDIRECTED PRN PRN Reason: Keep Vein Open Last Admin: 06/23/20 17:44 Dose: 10 ml Documented by: Vitamin B Complex/Vitamin C (Super B With Vitamin C) 1 cap PO DAILY [facility] Last Admin: 06/27/20 09:51 Dose: 1 cap Documented by: Vitamin E (Vitamin E) 800 units PO DAILY [facility] Last Admin: 06/27/20 09:50 Dose: 800 units Documented by: Zinc Sulfate (Zincate) 220 mg PO DAILY [facility] Last Admin: 06/27/20 09:52 Dose: 220 mg Documented by: Discontinued Medications Acetaminophen (Tylenol) 650 mg PO NOW ONE Stop: 06/23/20 17:51 Last Admin: 06/23/20 18:10 Dose: 650 mg Documented by: Acetaminophen (Tylenol) 650 mg RECTAL Q4H PRN PRN Reason: Pain (mild 1-3) Dexamethasone (Decadron) 6 mg IVPUSH ONETIME ONE Stop: 06/23/20 17:51 Last Admin: 06/23/20 18:16 Dose: 6 mg Documented by: Famotidine (Pepcid) 20 mg IVPUSH ONETIME ONE Stop: 06/23/20 21:34 Last Admin: 06/23/20 22:35 Dose: 20 mg Documented by: Folic Acid (Folic Acid) 1 mg PO DAILY [facility] Last Admin: 06/24/20 09:18 Dose: Not Given Documented by: Azithromycin 500 mg/ Sodium (Chloride) 250 mls @ 250 mls/hr IV ONETIME ONE Stop: 06/23/20 22:28 Last Admin: 06/23/20 23:05 Dose: 250 mls/hr Documented by: Ceftriaxone Sodium 1 gm/ (Sodium Chloride) 100 mls @ 200 mls/hr IV ONETIME ONE Stop: 06/23/20 21:57 Last Admin: 06/23/20 22:35 Dose: 200 mls/hr Documented by: Influenza Virus Vaccine (Pharmacy To Dose - Influenza Vaccine) 1 each IM ONETIME ONE Stop: 06/24/20 01:30 Influenza Virus Vaccine (Fluzone High-Dose Quad ) 240 mcg IM .ONCE ONE Stop: 06/24/20 10:01 Insulin Human Lispro (Humalog) 0 unit SUBCUT [facility]; Protocol Last Admin: 06/26/20 12:16 Dose: Not Given Documented by: Phenytoin Sodium (Phenytoin) 300 mg PO ONETIME ONE Stop: 06/23/20 22:31 Last Admin: 06/23/20 22:48 Dose: 300 mg Documented by: Phenytoin Sodium (Dilantin) 30 mg PO ONETIME ONE Stop: 06/23/20 22:31 Last Admin: 06/23/20 22:48 Dose: 30 mg Documented by: Senna/Docusate Sodium (Senna Plus) 1 tab PO BID PRN PRN Reason: Constipation Senna/Docusate Sodium (Senna Plus) 1 tab PO BID JUAN Senna/Docusate Sodium (Senna Plus) 2 tab PO BID [facility] Last Admin: 06/26/20 09:12 Dose: 2 tab Documented by: - Exam Quality Assessment: Supplemental Oxygen General: Alert, Oriented, Cooperative, No Acute Distress HEENT: Pupils Equal, Pupils Reactive, EOMI Neck: Trachea Midline, No JVD Lungs: Normal Respiratory Effort Cardiovascular: Regular Rate, Regular Rhythm GI/Abdominal Exam: Normal Bowel Sounds, Soft, Non-Tender, No Distention (Female) Exam: Deferred Back Exam: Normal Inspection Extremities: Normal Inspection, Normal Range of Motion, Normal Capillary Refill Skin: Warm Neurological: No New Focal Deficit, Normal Speech Psy/Mental Status: Alert - Patient Data Lab Results Last 24 hrs: Laboratory Results - last 24 hr 06/25/20 06/26/20 06/27/20 Range/Units 05:02 11:48 04:42 WBC 6.05 (3.98-10.04) K/mm3 RBC 4.04 (3.98-5.22) M/mm3 Hgb 12.1 (11.2-15.7) gm/dl Hct 38.1 (34.1-44.9) % MCV 94.3 (79.4-94.8) fl MCH 30.0 (25.6-32.2) pg MCHC 31.8 L (32.2-35.5) g/dl RDW Std Deviation 42.8 (36.4-46.3) fL Plt Count 294 (182-369) K/mm3 MPV 8.7 L (9.4-12.3) fl Neut % (Auto) 64.5 (34.0-71.1) % Lymph % (Auto) 22.1 (19.3-51.7) % [place] % (Auto) 12.2 (4.7-12.5) % Eos % (Auto) 0.5 L (0.7-5.8) Baso % (Auto) 0.2 (0.1-1.2) % Neut # (Auto) 3.90 (1.56-6.13) K/mm3 Lymph # (Auto) 1.34 (1.18-3.74) K/mm3 [place] # (Auto) 0.74 H (0.24-0.36) K/mm3 Eos # (Auto) 0.03 L (0.04-0.36) K/mm3 Baso # (Auto) 0.01 (0.01-0.08) K/mm3 D-Dimer, Quantitative (0.19-0.50) mg/L Sodium (136-145) mEq/L Potassium (3.5-5.1) mEq/L Chloride (98-107) mEq/L Carbon Dioxide (21-32) mEq/L Anion Gap (5-15) BUN (7-18) mg/dL Creatinine (0.55-1.02) mg/dL Est Cr Clr Drug Dosing mL/min Estimated GFR (MDRD) (>60) mL/min BUN/Creatinine Ratio (14-18) Glucose (80-115) mg/dL POC Glucose 118 H (80-115) mg/dL Lactic Acid (0.4-2.0) mmol/L Calcium (8.5-10.1) mg/dL Magnesium (1.8-2.4) mg/dl Total Bilirubin (0.2-1.0) mg/dL AST (15-37) U/L ALT (14-59) U/L Alkaline Phosphatase (46-116) U/L C-Reactive Protein (<1.0) mg/dL Total Protein (6.4-8.2) g/dl Albumin (3.4-5.0) g/dl Globulin gm/dL Albumin/Globulin Ratio (1-2) Phenytoin 10.0 (10.0-20.0) ug/mL Mycoplasma pneumon IgM (NEGATIVE) 06/27/20 06/27/20 06/27/20 Range/Units 04:42 04:42 04:42 WBC (3.98-10.04) K/mm3 RBC (3.98-5.22) M/mm3 Hgb (11.2-15.7) gm/dl Hct (34.1-44.9) % MCV (79.4-94.8) fl MCH (25.6-32.2) pg MCHC (32.2-35.5) g/dl RDW Std Deviation (36.4-46.3) fL Plt Count (182-369) K/mm3 MPV (9.4-12.3) fl Neut % (Auto) (34.0-71.1) % Lymph % (Auto) (19.3-51.7) % [place] % (Auto) (4.7-12.5) % Eos % (Auto) (0.7-5.8) Baso % (Auto) (0.1-1.2) % Neut # (Auto) (1.56-6.13) K/mm3 Lymph # (Auto) (1.18-3.74) K/mm3 [place] # (Auto) (0.24-0.36) K/mm3 Eos # (Auto) (0.04-0.36) K/mm3 Baso # (Auto) (0.01-0.08) K/mm3 D-Dimer, Quantitative 1.03 H (0.19-0.50) mg/L Sodium 141 (136-145) mEq/L Potassium 4.0 (3.5-5.1) mEq/L Chloride 102 (98-107) mEq/L Carbon Dioxide 25 (21-32) mEq/L Anion Gap 18.0 H (5-15) BUN 9 (7-18) mg/dL Creatinine 0.7 (0.55-1.02) mg/dL Est Cr Clr Drug Dosing 59.15 mL/min Estimated GFR (MDRD) > 60 (>60) mL/min BUN/Creatinine Ratio 12.9 L (14-18) Glucose 97 (80-115) mg/dL POC Glucose (80-115) mg/dL Lactic Acid (0.4-2.0) mmol/L Calcium 8.8 (8.5-10.1) mg/dL Magnesium 2.3 (1.8-2.4) mg/dl Total Bilirubin 0.3 (0.2-1.0) mg/dL AST 57 H (15-37) U/L ALT 83 H (14-59) U/L Alkaline Phosphatase 85 (46-116) U/L C-Reactive Protein 17.9 H* (<1.0) mg/dL Total Protein 6.9 (6.4-8.2) g/dl Albumin 2.3 L (3.4-5.0) g/dl Globulin 4.6 gm/dL Albumin/Globulin Ratio 0.5 L (1-2) Phenytoin (10.0-20.0) ug/mL Mycoplasma pneumon IgM Negative (NEGATIVE) 06/27/20 Range/Units 04:42 WBC (3.98-10.04) K/mm3 RBC (3.98-5.22) M/mm3 Hgb (11.2-15.7) gm/dl Hct (34.1-44.9) % MCV (79.4-94.8) fl MCH (25.6-32.2) pg MCHC (32.2-35.5) g/dl RDW Std Deviation (36.4-46.3) fL Plt Count (182-369) K/mm3 MPV (9.4-12.3) fl Neut % (Auto) (34.0-71.1) % Lymph % (Auto) (19.3-51.7) % [place] % (Auto) (4.7-12.5) % Eos % (Auto) (0.7-5.8) Baso % (Auto) (0.1-1.2) % Neut # (Auto) (1.56-6.13) K/mm3 Lymph # (Auto) (1.18-3.74) K/mm3 [place] # (Auto) (0.24-0.36) K/mm3 Eos # (Auto) (0.04-0.36) K/mm3 Baso # (Auto) (0.01-0.08) K/mm3 D-Dimer, Quantitative (0.19-0.50) mg/L Sodium (136-145) mEq/L Potassium (3.5-5.1) mEq/L Chloride (98-107) mEq/L Carbon Dioxide (21-32) mEq/L Anion Gap (5-15) BUN (7-18) mg/dL Creatinine (0.55-1.02) mg/dL Est Cr Clr Drug Dosing mL/min Estimated GFR (MDRD) (>60) mL/min BUN/Creatinine Ratio (14-18) Glucose (80-115) mg/dL POC Glucose (80-115) mg/dL Lactic Acid 0.9 (0.4-2.0) mmol/L Calcium (8.5-10.1) mg/dL Magnesium (1.8-2.4) mg/dl Total Bilirubin (0.2-1.0) mg/dL AST (15-37) U/L ALT (14-59) U/L Alkaline Phosphatase (46-116) U/L C-Reactive Protein (<1.0) mg/dL Total Protein (6.4-8.2) g/dl Albumin (3.4-5.0) g/dl Globulin gm/dL Albumin/Globulin Ratio (1-2) Phenytoin (10.0-20.0) ug/mL Mycoplasma pneumon IgM (NEGATIVE) Result Diagrams: 06/27/20 04:42 06/27/20 04:42 Torin Results Last 24 hrs: Microbiology 06/23/20 18:17 Aerobic Blood Culture - Preliminary Blood - Venous - Lab Draw NO GROWTH AFTER 3 DAYS Anaerobic Blood Culture - Preliminary NO GROWTH AFTER 3 DAYS 06/23/20 18:05 Aerobic Blood Culture - Preliminary Blood - Venous NO GROWTH AFTER 3 DAYS Anaerobic Blood Culture - Preliminary NO GROWTH AFTER 3 DAYS Sepsis Event Note - Evaluation Sepsis Screening Result: No Definite Risk - Focused Exam Vital Signs: Vital Signs Temp Pulse Resp BP Pulse Ox Pulse Ox 06/27/20 09:49 36.9 C 85 16 133/62 92 L 06/27/20 05:57 91 L 06/27/20 05:05 92 L 06/27/20 05:03 36.8 C 88 14 139/64 89 L 06/26/20 23:50 93 L - Problem List Review Problem List Initiated/Reviewed/Updated: Yes - Plan Plan:: This is a 69 yo elderly white female with past medical hx/o Seizure disorder,CESAR, hx/o SSS S/p Pacemaker placement, Vit D deficiency and Obesity who comes back for worsening Covid-19 infection primarily with increasing shortness of breathe with non-productive cough. Assessment: Acute: Query depression Covid-19 Infection, 05/22/2020, received monoclonal antibody [place] 06/22/20 in ED, has been symptomatic for a week Viral pneumonitis/Atypical pneumonia Hypoxia on 2L NC, improved; now down to 1L NC-->93% on RA Elevated Liver Enzymes, mildly worse today; improved Elevated CRP level of 18.1; essentially the same Elevated proBNP level of 446 Hypoalbuminemia with Albumin of 3.1-->2.6-->2.4--->2.5 Mild Proteinuria Mild Ketonuria Class I Obese Resolved: Lymphocytosis with Lymphocytes of 44%, resolved Hyperglycemia with BS of 125, improved/resolved Elevated AG level of 16.8, now 15.2-->14.8 Chronic: Seizure disorder,CESAR, hx/o SSS S/p Pacemaker placement, Vit D deficiency and Obesity Plan: Continue current level. Routine AM Labs. Continue to monitor inflammatory markers. Check phenytoin level. isolation protocol. Empiric IV antibiotic with Azithromycin and Rocephin daily. Dexamethasone daily. PRN decongestant/expectorant. PRN douneb for wheezing and sob. Serial CXR as indicated. Accu-check TIDPC with ISS. Monitor electrolytes and replete as needed. DVT/GI prophylaxis: Lovenox SubQ and H2B. RT to assess respiratory status. IS as directed. Normal Vit D level. Zinc supplement. PT/OT when appropriate. Code status is full. LOS > 96 hrs for treatment of Covid-19 infe ction. Hopeful for discharge in next 24-48 hours DC home 06/28/20
[2020-06-27] MEDS: cefTRIAXone 1 GM in Sodium Chloride 0.9% 100 ML IV SCH (21:21)
[2020-06-27] MEDS: Phenytoin 100 MG Cap.ER PO SCH (21:21)
[2020-06-27] MEDS: Phenytoin 30 MG Cap.ER PO SCH (21:24)
[2020-06-27] MEDS: Acetaminophen 325 MG Tab PO PRN (21:25)
[2020-06-27] MEDS: Folic Acid 1 MG Tab PO SCH (21:25)
[2020-06-27] MEDS: Azithromycin 500 MG in Sodium Chloride 0.9% 250 ML IV SCH (21:27)
[2020-06-28] MEDS: Vitamin E (dl-alpha-tocopherol acetate) 400 Unit Cap PO SCH (08:47)
[2020-06-28] MEDS: Cholecalciferol (Vitamin D3) 5,000 UNIT Cap PO SCH (08:47)
[2020-06-28] MEDS: Vitamin B Complex With Vitamin C Cap PO SCH (08:47)
[2020-06-28] MEDS: Famotidine 20 MG Tab PO SCH ×2 (08:48→21:30)
[2020-06-28] MEDS: Dexamethasone 4 MG Tab PO SCH (08:50)
[2020-06-28] MEDS: Zinc Sulfate 220 MG Cap PO SCH (08:51)
[2020-06-28] MEDS: Ferrous Sulfate 324 MG Tab.EC PO SCH ×3 (08:51→21:31)
[2020-06-28] MEDS: Enoxaparin 40 MG/0.4 ML Syringe SUBCUT SCH (08:52)
--- NOTE | 2020-06-28 09:44 | PCM.PN ---
- General Info Date of Service: 06/28/20 Subjective Update: Patient will be DCd in 24-48 hours, LOS influenced by duration of COVID-19 treatment and O2 needed. Functional Status: Reports: Tolerating Diet, Ambulating (Does not try to ambulate unless provoked or encouraged.) - Review of Systems General: Reports: Weakness HEENT: Reports: No Symptoms Pulmonary: Reports: Shortness of Breath Cardiovascular: Reports: No Symptoms Gastrointestinal: Reports: No Symptoms Genitourinary: Reports: No Symptoms Musculoskeletal: Reports: No Symptoms Skin: Reports: No Symptoms Neurological: Reports: No Symptoms Psychiatric: Reports: No Symptoms - Patient Data Vitals - Most Recent: Last Vital Signs Temp 37.6 C 06/28/20 08:38 Pulse 83 06/28/20 08:38 Resp 14 06/28/20 08:38 BP 134/59 L 06/28/20 08:38 Pulse Ox 89 L 06/28/20 08:38 Weight - Most Recent: 82.146 kg I&O - Last 24 Hours: Intake & Output 06/27/20 06/28/20 06/28/20 22:59 06:59 14:59 Intake Total 790 750 Output Total 600 750 Balance 190 0 Lab Results Last 24 Hours: Laboratory Results - last 24 hr 06/28/20 06/28/20 Range/Units 05:03 05:03 WBC 5.70 (3.98-10.04) K/mm3 RBC 4.09 (3.98-5.22) M/mm3 Hgb 12.3 (11.2-15.7) gm/dl Hct 38.4 (34.1-44.9) % MCV 93.9 (79.4-94.8) fl MCH 30.1 (25.6-32.2) pg MCHC 32.0 L (32.2-35.5) g/dl RDW Std Deviation 42.7 (36.4-46.3) fL Plt Count 322 (182-369) K/mm3 MPV 8.6 L (9.4-12.3) fl Neut % (Auto) 61.3 (34.0-71.1) % Lymph % (Auto) 23.5 (19.3-51.7) % [place] % (Auto) 12.3 (4.7-12.5) % Eos % (Auto) 1.6 (0.7-5.8) Baso % (Auto) 0.2 (0.1-1.2) % Neut # (Auto) 3.50 (1.56-6.13) K/mm3 Lymph # (Auto) 1.34 (1.18-3.74) K/mm3 [place] # (Auto) 0.70 H (0.24-0.36) K/mm3 Eos # (Auto) 0.09 (0.04-0.36) K/mm3 Baso # (Auto) 0.01 (0.01-0.08) K/mm3 Sodium 140 (136-145) mEq/L Potassium 3.9 (3.5-5.1) mEq/L Chloride 104 (98-107) mEq/L Carbon Dioxide 26 (21-32) mEq/L Anion Gap 13.9 (5-15) BUN 9 (7-18) mg/dL Creatinine 0.7 (0.55-1.02) mg/dL Est Cr Clr Drug Dosing 59.15 mL/min Estimated GFR (MDRD) > 60 (>60) mL/min BUN/Creatinine Ratio 12.9 L (14-18) Glucose 103 (80-115) mg/dL Calcium 8.9 (8.5-10.1) mg/dL Magnesium 2.2 (1.8-2.4) mg/dl Total Bilirubin 0.3 (0.2-1.0) mg/dL AST 60 H (15-37) U/L ALT 90 H (14-59) U/L Alkaline Phosphatase 100 (46-116) U/L C-Reactive Protein 19.1 H* (<1.0) mg/dL Total Protein 7.0 (6.4-8.2) g/dl Albumin 2.1 L (3.4-5.0) g/dl Globulin 4.9 gm/dL Albumin/Globulin Ratio 0.4 L (1-2) Torin Results Last 24 Hours: Microbiology 06/23/20 18:17 Aerobic Blood Culture - Preliminary Blood - Venous - Lab Draw NO GROWTH AFTER 4 DAYS Anaerobic Blood Culture - Preliminary NO GROWTH AFTER 4 DAYS 06/23/20 18:05 Aerobic Blood Culture - Preliminary Blood - Venous NO GROWTH AFTER 4 DAYS Anaerobic Blood Culture - Preliminary NO GROWTH AFTER 4 DAYS Med Orders - Current: Current Medications Acetaminophen (Tylenol) 650 mg PO Q4H PRN PRN Reason: Pain/Fever Last Admin: 06/27/20 21:25 Dose: 650 mg Documented by: Hydrocodone Bitart/Acetaminophen ([place] 325-5 Mg) 1 tab PO Q4H PRN PRN Reason: Pain (moderate 4-6) Albuterol/Ipratropium (Duoneb 3.0-0.5 Mg/3 Ml) 3 ml NEB Q4H PRN PRN Reason: Shortness Of Breath/wheezing Cholecalciferol (Vitamin D3) 5,000 unit PO DAILY [facility] Last Admin: 06/28/20 08:47 Dose: 5,000 unit Documented by: Dexamethasone (Dexamethasone) 6 mg PO DAILY [facility] Stop: 07/02/20 09:01 Last Admin: 06/28/20 08:50 Dose: 6 mg Documented by: Enoxaparin Sodium (Lovenox) 40 mg SUBCUT DAILY [facility] Last Admin: 06/28/20 08:52 Dose: 40 mg Documented by: Famotidine (Pepcid) 20 mg PO BID [facility] Last Admin: 06/28/20 08:48 Dose: 20 mg Documented by: Ferrous Sulfate (Ferrous Sulfate) 324 mg PO TID [facility] Last Admin: 06/28/20 08:51 Dose: 324 mg Documented by: Folic Acid (Folic Acid) 1 mg PO BEDTIME [facility] Last Admin: 06/27/20 21:25 Dose: 1 mg Documented by: Guaifenesin/Phenylephrine HCl (Robitussin Dm) 10 ml PO Q4H PRN PRN Reason: Cough Hydromorphone HCl (Dilaudid) 0.25 mg IVPUSH Q2H PRN PRN Reason: Pain (severe 7-10) Promethazine HCl 12.5 mg/ (Sodium Chloride) 50.5 mls @ 100 mls/hr IV Q6H PRN PRN Reason: Nausea/Vomiting Ceftriaxone Sodium 1 gm/ (Sodium Chloride) 100 mls @ 200 mls/hr IV Q24H [facility] Stop: 06/28/20 22:01 Last Admin: 06/27/20 21:21 Dose: 200 mls/hr Documented by: Ondansetron HCl (Zofran) 4 mg IV Q6H PRN PRN Reason: Nausea/Vomiting Phenytoin Sodium (Phenytoin) 300 mg PO BEDTIME [facility] Last Admin: 06/27/20 21:21 Dose: 300 mg Documented by: Phenytoin Sodium (Dilantin) 30 mg PO BEDTIME [facility] Last Admin: 06/27/20 21:24 Dose: 30 mg Documented by: Polyethylene Glycol (Miralax) 17 gm PO DAILY PRN PRN Reason: Constipation Last Admin: 06/25/20 09:18 Dose: 17 gm Documented by: Senna/Docusate Sodium (Senna Plus) 1 tab PO DAILY [facility] Last Admin: 06/28/20 08:50 Dose: Not Given Documented by: Sodium Chloride (Saline Flush) 10 ml FLUSH ASDIRECTED PRN PRN Reason: Keep Vein Open Last Admin: 06/23/20 17:44 Dose: 10 ml Documented by: Vitamin B Complex/Vitamin C (Super B With Vitamin C) 1 cap PO DAILY [facility] Last Admin: 06/28/20 08:47 Dose: 1 cap Documented by: Vitamin E (Vitamin E) 800 units PO DAILY [facility] Last Admin: 06/28/20 08:47 Dose: 800 units Documented by: Zinc Sulfate (Zincate) 220 mg PO DAILY [facility] Last Admin: 06/28/20 08:51 Dose: 220 mg Documented by: Discontinued Medications Acetaminophen (Tylenol) 650 mg PO NOW ONE Stop: 06/23/20 17:51 Last Admin: 06/23/20 18:10 Dose: 650 mg Documented by: Acetaminophen (Tylenol) 650 mg RECTAL Q4H PRN PRN Reason: Pain (mild 1-3) Dexamethasone (Decadron) 6 mg IVPUSH ONETIME ONE Stop: 06/23/20 17:51 Last Admin: 06/23/20 18:16 Dose: 6 mg Documented by: Famotidine (Pepcid) 20 mg IVPUSH ONETIME ONE Stop: 06/23/20 21:34 Last Admin: 06/23/20 22:35 Dose: 20 mg Documented by: Folic Acid (Folic Acid) 1 mg PO DAILY [facility] Last Admin: 06/24/20 09:18 Dose: Not Given Documented by: Azithromycin 500 mg/ Sodium (Chloride) 250 mls @ 250 mls/hr IV ONETIME ONE Stop: 06/23/20 22:28 Last Admin: 06/23/20 23:05 Dose: 250 mls/hr Documented by: Azithromycin 500 mg/ Sodium (Chloride) 250 mls @ 250 mls/hr IV Q24H [facility] Stop: 06/27/20 22:59 Last Admin: 06/27/20 21:27 Dose: 250 mls/hr Documented by: Ceftriaxone Sodium 1 gm/ (Sodium Chloride) 100 mls @ 200 mls/hr IV ONETIME ONE Stop: 06/23/20 21:57 Last Admin: 06/23/20 22:35 Dose: 200 mls/hr Documented by: Influenza Virus Vaccine (Pharmacy To Dose - Influenza Vaccine) 1 each IM ONETIME ONE Stop: 06/24/20 01:30 Influenza Virus Vaccine (Fluzone High-Dose Quad ) 240 mcg IM .ONCE ONE Stop: 06/24/20 10:01 Insulin Human Lispro (Humalog) 0 unit SUBCUT [facility]; Protocol Last Admin: 06/26/20 12:16 Dose: Not Given Documented by: Phenytoin Sodium (Phenytoin) 300 mg PO ONETIME ONE Stop: 06/23/20 22:31 Last Admin: 06/23/20 22:48 Dose: 300 mg Documented by: Phenytoin Sodium (Dilantin) 30 mg PO ONETIME ONE Stop: 06/23/20 22:31 Last Admin: 06/23/20 22:48 Dose: 30 mg Documented by: Senna/Docusate Sodium (Senna Plus) 1 tab PO BID PRN PRN Reason: Constipation Senna/Docusate Sodium (Senna Plus) 1 tab PO BID [facility] Senna/Docusate Sodium (Senna Plus) 2 tab PO BID [facility] Last Admin: 06/26/20 09:12 Dose: 2 tab Documented by: - Exam Quality Assessment: Supplemental Oxygen, DVT Prophylaxis General: Alert, Oriented, Cooperative, No Acute Distress HEENT: Pupils Equal, Pupils Reactive, EOMI Neck: Trachea Midline, No JVD Lungs: Normal Respiratory Effort Cardiovascular: Regular Rate, Regular Rhythm GI/Abdominal Exam: Normal Bowel Sounds, Soft, Non-Tender, No Distention (Female) Exam: Deferred Back Exam: Normal Inspection Extremities: Normal Inspection, Normal Capillary Refill Skin: Warm Neurological: No New Focal Deficit Psy/Mental Status: Alert - Patient Data Lab Results Last 24 hrs: Laboratory Results - last 24 hr 06/28/20 06/28/20 Range/Units 05:03 05:03 WBC 5.70 (3.98-10.04) K/mm3 RBC 4.09 (3.98-5.22) M/mm3 Hgb 12.3 (11.2-15.7) gm/dl Hct 38.4 (34.1-44.9) % MCV 93.9 (79.4-94.8) fl MCH 30.1 (25.6-32.2) pg MCHC 32.0 L (32.2-35.5) g/dl RDW Std Deviation 42.7 (36.4-46.3) fL Plt Count 322 (182-369) K/mm3 MPV 8.6 L (9.4-12.3) fl Neut % (Auto) 61.3 (34.0-71.1) % Lymph % (Auto) 23.5 (19.3-51.7) % [place] % (Auto) 12.3 (4.7-12.5) % Eos % (Auto) 1.6 (0.7-5.8) Baso % (Auto) 0.2 (0.1-1.2) % Neut # (Auto) 3.50 (1.56-6.13) K/mm3 Lymph # (Auto) 1.34 (1.18-3.74) K/mm3 [place] # (Auto) 0.70 H (0.24-0.36) K/mm3 Eos # (Auto) 0.09 (0.04-0.36) K/mm3 Baso # (Auto) 0.01 (0.01-0.08) K/mm3 Sodium 140 (136-145) mEq/L Potassium 3.9 (3.5-5.1) mEq/L Chloride 104 (98-107) mEq/L Carbon Dioxide 26 (21-32) mEq/L Anion Gap 13.9 (5-15) BUN 9 (7-18) mg/dL Creatinine 0.7 (0.55-1.02) mg/dL Est Cr Clr Drug Dosing 59.15 mL/min Estimated GFR (MDRD) > 60 (>60) mL/min BUN/Creatinine Ratio 12.9 L (14-18) Glucose 103 (80-115) mg/dL Calcium 8.9 (8.5-10.1) mg/dL Magnesium 2.2 (1.8-2.4) mg/dl Total Bilirubin 0.3 (0.2-1.0) mg/dL AST 60 H (15-37) U/L ALT 90 H (14-59) U/L Alkaline Phosphatase 100 (46-116) U/L C-Reactive Protein 19.1 H* (<1.0) mg/dL Total Protein 7.0 (6.4-8.2) g/dl Albumin 2.1 L (3.4-5.0) g/dl Globulin 4.9 gm/dL Albumin/Globulin Ratio 0.4 L (1-2) Result Diagrams: 06/28/20 05:03 06/28/20 05:03 Torin Results Last 24 hrs: Microbiology 06/23/20 18:17 Aerobic Blood Culture - Preliminary Blood - Venous - Lab Draw NO GROWTH AFTER 4 DAYS Anaerobic Blood Culture - Preliminary NO GROWTH AFTER 4 DAYS 06/23/20 18:05 Aerobic Blood Culture - Preliminary Blood - Venous NO GROWTH AFTER 4 DAYS Anaerobic Blood Culture - Preliminary NO GROWTH AFTER 4 DAYS Sepsis Event Note - Evaluation Sepsis Screening Result: No Definite Risk - Focused Exam Vital Signs: Vital Signs Temp Temp Temp Pulse Pulse Resp BP 06/28/20 08:38 37.6 C 83 14 134/59 L 06/28/20 04:50 37.2 C 79 79 13 06/28/20 00:52 36.6 C 74 20 108/80 06/27/20 22:00 37.2 C Pulse Ox 06/28/20 08:38 89 L 06/28/20 04:50 88 L 06/28/20 00:52 92 L 06/27/20 22:00 - Problem List Review Problem List Initiated/Reviewed/Updated: Yes - Plan Plan:: This is a 69 yo elderly white female with past medical hx/o Seizure disorder,CESAR, hx/o SSS S/p Pacemaker placement, Vit D deficiency and Obesity who comes back for worsening Covid-19 infection primarily with increasing shortness of breathe with non-productive cough. Assessment: Acute: Query depression Covid-19 Infection, 05/22/2020, received monoclonal antibody [place] 06/22/20 in ED, has been symptomatic for a week Viral pneumonitis/Atypical pneumonia Hypoxia on 2L NC, improved; now down to 1L NC-->93% on RA Elevated Liver Enzymes, mildly worse today; improved Elevated CRP level of 18.1; essentially the same Elevated proBNP level of 446 Hypoalbuminemia with Albumin of 3.1-->2.6-->2.4--->2.5 Mild Proteinuria Mild Ketonuria Class I Obese Resolved: Lymphocytosis with Lymphocytes of 44%, resolved Hyperglycemia with BS of 125, improved/resolved Elevated AG level of 16.8, now 15.2-->14.8 Chronic: Seizure disorder,CESAR, hx/o SSS S/p Pacemaker placement, Vit D deficiency and Obesity Plan: Continue current level. Routine AM Labs. Continue to monitor inflammatory markers. Check phenytoin level. isolation protocol. Empiric IV antibiotic with Azithromycin and Rocephin daily. Dexamethasone daily. PRN deco ngestant/expectorant. PRN douneb for wheezing and sob. Serial CXR as indicated. Accu-check TIDPC with ISS. Monitor electrolytes and replete as needed. DVT/GI prophylaxis: Lovenox SubQ and H2B. RT to assess respiratory status. IS as directed. Normal Vit D level. Zinc supplement. PT/OT when appropriate. Code status is full. #####LOS > 96 hrs for treatment of Covid-19 infection. Hopeful for discharge in next 24-48 hours DC home 06/28/20 postponed, possible DC on 06/29/20, hopefully off of O2 is preferred.
[2020-06-28] MEDS: Acetaminophen 325 MG Tab PO PRN (15:46)
[2020-06-28] MEDS: cefTRIAXone 1 GM in Sodium Chloride 0.9% 100 ML IV SCH (21:26)
[2020-06-28] MEDS: Phenytoin 100 MG Cap.ER PO SCH (21:30)
[2020-06-28] MEDS: Phenytoin 30 MG Cap.ER PO SCH (21:30)
[2020-06-28] MEDS: Folic Acid 1 MG Tab PO SCH (21:31)
[2020-06-29] MEDS: Enoxaparin 40 MG/0.4 ML Syringe SUBCUT SCH (08:57)
[2020-06-29] MEDS: Vitamin E (dl-alpha-tocopherol acetate) 400 Unit Cap PO SCH (08:57)
[2020-06-29] MEDS: Vitamin B Complex With Vitamin C Cap PO SCH (08:58)
[2020-06-29] MEDS: Famotidine 20 MG Tab PO SCH (08:58)
[2020-06-29] MEDS: Cholecalciferol (Vitamin D3) 5,000 UNIT Cap PO SCH (08:58)
[2020-06-29] MEDS: Zinc Sulfate 220 MG Cap PO SCH (08:58)
[2020-06-29] MEDS: Ferrous Sulfate 324 MG Tab.EC PO SCH (08:58)
[2020-06-29] MEDS: Dexamethasone 4 MG Tab PO SCH (08:59)
[2020-06-29 12:41] VITALS: BP 135/80; PULSE 84
--- NOTE | 2020-06-29 12:49 | PCM.DCSUM1 ---
Discharge Summary - Hospital Course HPI Initial Comments: This is a 69 yo elderly white female with past medical hx/o Seizure disorder,CESAR, hx/o SSS S/p Pacemaker placement, Vit D deficiency and Obesity who comes back for worsening Covid-19 infection primarily with increasing shortness of breath with non-productive cough. She has been having flu-like symptoms for about a week now. She was diagnosed with Covid-19 yesterday in our ED and received Jenny Kirsty's monoclonal antibodies therapy (Bamlam). However she felt no better. Associated to her main complaints were decreased appetite, headaches, malaise, fatigue, generalized weakness, and sleep deprivation. No GI/ complaints. Her initial work up shows a CBC notable for Lymphocytes of 44%. Her ABG essentially shows normal gas. Her chemistry is significant for AG of 16.8, BS of 125, AST of 78, ALT of 85, CRP of 18.1, proBNP of 446, and Albumin of 3.1. Her U A was negative for infection. Her chest x-ray shows bilateral patchy infiltrates consistent with Covid-19 infection. Patient received 6 mg of IV Dexamethasone and a one time dose of Tylenol for initial treatment in ED. She is coming in for further treatment of Covid-19 infection. Diagnosis: Stroke: No - Discharge Data Discharge Date: 06/29/20 (Admit date: 06/23/20) Discharge Disposition: Home, Self-Care 01 Condition: Good - Referral to Home Health Primary Care Physician: IGNACIO Quezada - Discharge Diagnosis/Problem(s) (1) Constipation SNOMED Code(s): 02495431 ICD Code: K59.00 - CONSTIPATION, UNSPECIFIED Status: Resolved Priority: High Current Visit: Yes Qualifiers: Constipation type: unspecified constipation type Qualified Code(s): K59.00 - Constipation, unspecified (2) COVID-19 SNOMED Code(s): 251753488 ICD Code: U07.1 - COVID-19 Status: Acute Priority: High Current Visit: Yes (3) Hypoxia SNOMED Code(s): 225026251 ICD Code: R09.02 - HYPOXEMIA Status: Acute Priority: High Current Visit: Yes (4) Iron deficiency SNOMED Code(s): 87893919 ICD Code: E61.1 - IRON DEFICIENCY Status: Chronic Priority: Low Current Visit: No (5) Transaminitis SNOMED Code(s): 157228924, 590274869 ICD Code: R74.01 - ELEVATION OF LEVELS OF LIVER TRANSAMINASE LEVELS Status: Acute Priority: Medium Current Visit: Yes (6) Hypoalbuminemia SNOMED Code(s): 857747095 ICD Code: E88.09 - OTH DISORDERS OF PLASMA-PROTEIN METABOLISM, NEC Status: Acute Priority: Medium Current Visit: Yes (7) Obesity (BMI 30.0-34.9) SNOMED Code(s): 305882591560511 ICD Code: E66.9 - OBESITY, UNSPECIFIED Status: Chronic Priority: Medium Current Visit: Yes - Patient Summary/Data Consults: Consultations 06/23/20 21:22 Consult to Case Management/Wardrobe Assistant [CONS] Routine Consult to Nail Welter [CONS] Routine OT Evaluation and Treatment [CONS] Routine PT Evaluation and Treatment [CONS] Routine Respiratory Care Assess and Treatment [CONS] Routine Labs Pending at D/C: None Recommended Follow-up Testing/Procedures: Follow-up with primary care provider within 7-10 days of discharge, sooner if needed. -recommend re-check CBC, CMP and magnesium at that visit Hospital Course: 69-year-old female admitted to our ED on 06/23/2020 with worsening Covid symptoms including shortness of breath and cough. She was given the monoclonal antibody Bamlam the day prior to admission but reports she has been symptomatic for a week. She was given azithromycin and Rocephin and utilize an incentive spirometer. Because of the length of time patient have been sick remdesivir was not started. She was however started on 6 mg daily dexamethasone. Patient does have a history of vitamin D deficiency and this was checked but was normal. She received zinc supplementation. Albumin was low when she did see our dietitian. Phenytoin level was obtained and was on the low end of normal. Repeat chest x-ray was stable but did show some mild pulmonary vascular congestion. She did work with PT and OT who are recommending home independent. She was qualified for oxygen prior to discharge as we are unable to wean her. She should utilize 1 L with rest and 2 L with activity. She was instructed to continue to utilize her incentive spirometer for 1 to 2 weeks or until symptoms resolve. Steroid was not prescribed on discharge. She had completed antibiotic treatment. Home medications were continued. No new medications. Discharged home today. Recommend follow-up with primary care provider within 7 to 10 days of discharge, sooner if needed. Recommend repeat CBC, CMP, and magnesium at that time. Consider repeat chest x-ray. - Patient Instructions Diet: Heart Healthy Diet Activity: As Tolerated Driving: Do Not Drive (until symptoms resolve ) Showering/Bathing: May Shower Notify Provider of: Fever, Increased Pain, Nausea and/or Vomiting Other/Special Instructions: Follow-up with primary care provider within 7-10 days of discharge, sooner if needed. Resume home medications as directed. You completed your COVID-19 treamtment while here. Nothing further will be prescribed. Continue to stay active. Walk around your house frequently. Recommend continuing to prone. Sleep/rest on your belly whenever able. Continue to utuilze your incentive spirometer (Clear/Blue device you inhale through) for the next 1-2 weeks or until symptoms resolve. You were given a prescription for home oxygen. Continue to wear this as prescribed. 1L with rest or 2L with activity. You should remain isolated/quarantined until 07/05/20. You will likely be contacted by a bottle caser [facility]. You should follow their directions. Should symptoms return or worsen contact your primary care provider or return to the Emergency Department. - Discharge Plan *PRESCRIPTION DRUG MONITORING PROGRAM REVIEWED*: No *COPY OF PRESCRIPTION DRUG MONITORING REPORT IN PATIENT WOJCIECH: No Home Medications: Home Meds Phenytoin Sodium Extended [Dilantin] 330 mg PO BEDTIME 02/27/16 [History] Ferrous Sulfate 325 mg PO TID #30 tablet 05/12/18 [Rx] Cholecalciferol (Vitamin D3) [Vitamin D] 5,000 unit PO DAILY 06/22/20 [History] Folic Acid 1 mg PO DAILY 06/22/20 [History] Vitamin B Complex 1 each PO DAILY 06/22/20 [History] Vitamin E 1,000 unit PO DAILY 06/22/20 [History] Oxygen Therapy Mode: Nasal Cannula Oxygen Flow Rate (L/min): 1 (1L rest, 2L activity) Patient Handouts: COVID-19 Frequently Asked Questions, 10 Things You Can Do to Manage Your COVID-19 Symptoms at Home - CDC, Home Oxygen Use, Adult, COVID-19: How to Protect Yourself and Others - CDC, How to Safely Wear and Take Off a Mask - CDC, Sepsis, Self Care, Adult Referrals: Elisa Daniel PA-C [Primary Care Provider] - 07/06/20 11:00 am (please arriver at least 15 minutes prior to the appointment time.) - Discharge Summary/Plan Comment DC Time >30 min.: Yes (45 mins ) - General Info Date of Service: 06/29/20 Admission Dx/Problem (Free Text: Admission Diagnosis/Problem Admission Diagnosis/Problem Hypoxia Functional Status: Reports: Pain Controlled, Tolerating Diet, Ambulating, Urinating, Incentive Spirometry. Denies: New Symptoms - Review of Systems General: Reports: Weakness (improving ). Denies: Fever, Fatigue, Malaise, Chills HEENT: Reports: No Symptoms. Denies: Headaches, Sore Throat Pulmonary: Reports: Shortness of Breath, Cough. Denies: Sputum, Wheezing Cardiovascular: Reports: Dyspnea on Exertion. Denies: Chest Pain, Palpitations, Edema Gastrointestinal: Reports: No Symptoms. Denies: Abdominal Pain, Constipation, Diarrhea, Nausea, Vomiting Genitourinary: Reports: No Symptoms. Denies: Pain Musculoskeletal: Reports: No Symptoms Skin: Reports: No Symptoms. Denies: Cyanosis Neurological: Reports: No Symptoms. Denies: Confusion, Pre-Existing Deficit, Difficulty Walking, Gait Disturbance Psychiatric: Reports: No Symptoms - Patient Data Vitals - Most Recent: Last Vital Signs Temp 98.2 F 06/29/20 07:28 Pulse 84 06/29/20 12:21 Resp 14 06/29/20 12:21 BP 135/80 06/29/20 12:21 Pulse Ox 92 L 06/29/20 12:21 Weight - Most Recent: 180 lb 4.8 oz I&O - Last 24 hours: Intake & Output 06/28/20 06/29/20 06/29/20 22:59 06:59 14:59 Intake Total 1140 550 Output Total 700 950 Balance 440 -400 Lab Results - Last 24 hrs: Laboratory Results - last 24 hr 06/29/20 Range/Units 05:45 WBC 6.65 (3.98-10.04) K/mm3 RBC 3.98 (3.98-5.22) M/mm3 Hgb 11.9 (11.2-15.7) gm/dl Hct 37.3 (34.1-44.9) % MCV 93.7 (79.4-94.8) fl MCH 29.9 (25.6-32.2) pg MCHC 31.9 L (32.2-35.5) g/dl RDW Std Deviation 42.3 (36.4-46.3) fL Plt Count 347 (182-369) K/mm3 MPV 8.6 L (9.4-12.3) fl Neut % (Auto) 66.2 (34.0-71.1) % Lymph % (Auto) 17.3 L (19.3-51.7) % Petroleum % (Auto) 13.7 H (4.7-12.5) % Eos % (Auto) 1.7 (0.7-5.8) Baso % (Auto) 0.2 (0.1-1.2) % Neut # (Auto) 4.41 (1.56-6.13) K/mm3 Lymph # (Auto) 1.15 L (1.18-3.74) K/mm3 Petroleum # (Auto) 0.91 H (0.24-0.36) K/mm3 Eos # (Auto) 0.11 (0.04-0.36) K/mm3 Baso # (Auto) 0.01 (0.01-0.08) K/mm3 Manual Slide Review Normal smear MALISSA Results - Last 24 hrs: Microbiology 06/23/20 18:17 Aerobic Blood Culture - Preliminary Blood - Venous - Lab Draw NO GROWTH AFTER 5 DAYS Anaerobic Blood Culture - Preliminary NO GROWTH AFTER 5 DAYS 06/23/20 18:05 Aerobic Blood Culture - Preliminary Blood - Venous NO GROWTH AFTER 5 DAYS Anaerobic Blood Culture - Preliminary NO GROWTH AFTER 5 DAYS Med Orders - Current: Current Medications Acetaminophen (Tylenol) 650 mg PO Q4H PRN PRN Reason: Pain/Fever Last Admin: 06/28/20 15:46 Dose: 650 mg Documented by: Hydrocodone Bitart/Acetaminophen ([place] 325-5 Mg) 1 tab PO Q4H PRN PRN Reason: Pain (moderate 4-6) Albuterol/Ipratropium (Duoneb 3.0-0.5 Mg/3 Ml) 3 ml NEB Q4H PRN PRN Reason: Shortness Of Breath/wheezing Cholecalciferol (Vitamin D3) 5,000 unit PO DAILY JUAN Last Admin: 06/29/20 08:58 Dose: 5,000 unit Documented by: Dexamethasone (Dexamethasone) 6 mg PO DAILY [facility] Stop: 07/02/20 09:01 Last Admin: 06/29/20 08:59 Dose: 6 mg Documented by: Enoxaparin Sodium (Lovenox) 40 mg SUBCUT DAILY [facility] Last Admin: 06/29/20 08:57 Dose: 40 mg Documented by: Famotidine (Pepcid) 20 mg PO BID [facility] Last Admin: 06/29/20 08:58 Dose: 20 mg Documented by: Ferrous Sulfate (Ferrous Sulfate) 324 mg PO TID [facility] Last Admin: 06/29/20 08:58 Dose: 324 mg Documented by: Folic Acid (Folic Acid) 1 mg PO BEDTIME [facility] Last Admin: 06/28/20 21:31 Dose: 1 mg Documented by: Guaifenesin/Phenylephrine HCl (Robitussin Dm) 10 ml PO Q4H PRN PRN Reason: Cough Hydromorphone HCl (Dilaudid) 0.25 mg IVPUSH Q2H PRN PRN Reason: Pain (severe 7-10) Promethazine HCl 12.5 mg/ (Sodium Chloride) 50.5 mls @ 100 mls/hr IV Q6H PRN PRN Reason: Nausea/Vomiting Ondansetron HCl (Zofran) 4 mg IV Q6H PRN PRN Reason: Nausea/Vomiting Phenytoin Sodium (Phenytoin) 300 mg PO BEDTIME [facility] Last Admin: 06/28/20 21:30 Dose: 300 mg Documented by: Phenytoin Sodium (Dilantin) 30 mg PO BEDTIME [facility] Last Admin: 06/28/20 21:30 Dose: 30 mg Documented by: Polyethylene Glycol (Miralax) 17 gm PO DAILY PRN PRN Reason: Constipation Last Admin: 06/25/20 09:18 Dose: 17 gm Documented by: Senna/Docusate Sodium (Senna Plus) 1 tab PO DAILY [facility] Last Admin: 06/29/20 08:58 Dose: 1 tab Documented by: Sodium Chloride (Saline Flush) 10 ml FLUSH ASDIRECTED PRN PRN Reason: Keep Vein Open Last Admin: 06/23/20 17:44 Dose: 10 ml Documented by: Vitamin B Complex/Vitamin C (Super B With Vitamin C) 1 cap PO DAILY [facility] Last Admin: 06/29/20 08:58 Dose: 1 cap Documented by: Vitamin E (Vitamin E) 800 units PO DAILY [facility] Last Admin: 06/29/20 08:57 Dose: 800 units Documented by: Zinc Sulfate (Zincate) 220 mg PO DAILY [facility] Last Admin: 06/29/20 08:58 Dose: 220 mg Documented by: Discontinued Medications Acetaminophen (Tylenol) 650 mg PO NOW ONE Stop: 06/23/20 17:51 Last Admin: 06/23/20 18:10 Dose: 650 mg Documented by: Acetaminophen (Tylenol) 650 mg RECTAL Q4H PRN PRN Reason: Pain (mild 1-3) Dexamethasone (Decadron) 6 mg IVPUSH ONETIME ONE Stop: 06/23/20 17:51 Last Admin: 06/23/20 18:16 Dose: 6 mg Documented by: Famotidine (Pepcid) 20 mg IVPUSH ONETIME ONE Stop: 06/23/20 21:34 Last Admin: 06/23/20 22:35 Dose: 20 mg Documented by: Folic Acid (Folic Acid) 1 mg PO DAILY [facility] Last Admin: 06/24/20 09:18 Dose: Not Given Documented by: Azithromycin 500 mg/ Sodium (Chloride) 250 mls @ 250 mls/hr IV ONETIME ONE Stop: 06/23/20 22:28 Last Admin: 06/23/20 23:05 Dose: 250 mls/hr Documented by: Azithromycin 500 mg/ Sodium (Chloride) 250 mls @ 250 mls/hr IV Q24H [facility] Stop: 06/27/20 22:59 Last Admin: 06/27/20 21:27 Dose: 250 mls/hr Documented by: Ceftriaxone Sodium 1 gm/ (Sodium Chloride) 100 mls @ 200 mls/hr IV Q24H [facility] Stop: 06/28/20 22:01 Last Admin: 06/28/20 21:26 Dose: 200 mls/hr Documented by: Ceftriaxone Sodium 1 gm/ (Sodium Chloride) 100 mls @ 200 mls/hr IV ONETIME ONE Stop: 06/23/20 21:57 Last Admin: 06/23/20 22:35 Dose: 200 mls/hr Documented by: Influenza Virus Vaccine (Pharmacy To Dose - Influenza Vaccine) 1 each IM ONETIME ONE Stop: 06/24/20 01:30 Influenza Virus Vaccine (Fluzone High-Dose Quad ) 240 mcg IM .ONCE ONE Stop: 06/24/20 10:01 Insulin Human Lispro (Humalog) [facility]; Protocol Last Admin: 06/26/20 12:16 Dose: Not Given Documented by: Phenytoin Sodium (Phenytoin) 300 mg PO ONETIME ONE Stop: 06/23/20 22:31 Last Admin: 06/23/20 22:48 Dose: 300 mg Documented by: Phenytoin Sodium (Dilantin) 30 mg PO ONETIME ONE Stop: 06/23/20 22:31 Last Admin: 06/23/20 22:48 Dose: 30 mg Documented by: Senna/Docusate Sodium (Senna Plus) 1 tab PO BID PRN PRN Reason: Constipation Senna/Docusate Sodium (Senna Plus) 1 tab PO BID [facility] Senna/Docusate Sodium (Senna Plus) 2 tab PO BID [facility] Last Admin: 06/26/20 09:12 Dose: 2 tab Documented by: - Exam Quality Assessment: Reports: Supplemental Oxygen (1L), DVT Prophylaxis. Denies: Urine Catheter General: Reports: Alert, Oriented, Cooperative HEENT: Reports: Pupils Equal, Pupils Reactive, Mucous Membr. Moist/Lower [place] Lungs: Reports: Normal Respiratory Effort, Decreased Breath Sounds. Denies: Rales, Rhonchi, Wheezing Cardiovascular: Reports: Regular Rate, Regular Rhythm GI/Abdominal Exam: Normal Bowel Sounds, Soft, Non-Tender, No Distention (Female) Exam: Deferred Rectal (Female) Exam: Deferred Back Exam: Reports: Normal Inspection, Full Range of Motion Extremities: Normal Inspection, Normal Range of Motion, Non-Tender, No Pedal Edema, Normal Capillary Refill Skin: Reports: Warm, Dry, Intact Neurological: Reports: No New Focal Deficit Psy/Mental Status: Reports: Alert, Normal Affect, Normal Mood
== END 2020-06-29 13:30 | disposition home or self-care (01) | DRG 177 ==
LOC: JD.ED 17:23 → JD.MS 18:59 → UNDOADMIN 20:04 → UNDODISIN 06-29 13:30
PROVIDERS: ADMIT Internal Medicine; ATTEND Internal Medicine
DX: U07.1 COVID-19 (principal); J12.82 Pneumonia due to coronavirus disease 2019; R09.02 Hypoxemia; G40.909 Epilepsy, unspecified, not intractable, without status epilepticus; I49.5 Sick sinus syndrome; E55.9 Vitamin D deficiency, unspecified; E66.9 Obesity, unspecified; K59.00 Constipation, unspecified; E61.1 Iron deficiency; R74.01 Elevation of levels of liver transaminase levels; D64.9 Anemia, unspecified; R73.9 Hyperglycemia, unspecified; E88.09 Other disorders of plasma-protein metabolism, not elsewhere classified; Z79.899 Other long term (current) drug therapy; Z88.0 Allergy status to penicillin; Z95.0 Presence of cardiac pacemaker; Z68.33 Body mass index [BMI] 33.0-33.9, adult; Z23 Encounter for immunization
CPT/HCPCS: 36415; 36600; 71045; 80053; 81001; 82803; 83605; 83880; 84484; 85007; 85027; 85379; 85652; 86140; 87040 ×2; 93005; 96374; 99285; A9270; J1100; 80185; 82306; 82962; 83735; 85025; 86738; 87205; 90662; 93010; 94761; 94762; 97161-GP; 97165-GO; 97530-GP; 97535-GO; 99222; 99232; 99233; 99239; G0008; J0456; J0696; J1650; J3490; J7050; J8540

== ENCOUNTER 2020-07-05 12:41 | Emergency (ER) | payer MEDICARE, BC ==
[2020-07-05 13:00] VITALS: BP 144/76; PULSE 96
--- NOTE | 2020-07-05 13:24 | EDM.PDOC ---
ED HPI GENERAL MEDICAL PROBLEM - General Chief Complaint: Lower Extremity Injury/Pain Stated Complaint: CALF PAIN Time Seen by Provider: 07/05/20 13:07 - History of Present Illness INITIAL COMMENTS - FREE TEXT/NARRATIVE: 69-year-old female returns to the emergency room with right calf pain. Patient developed this pain almost 24 hours ago is progressively getting worse she may have minimal pain on the left side. Patient was recently admitted here with shortness of breath secondary to Covid she still is on supplemental oxygen. But otherwise seems to be doing okay she has not noted noticed a lot of redness or warmth in her leg she has some discomfort starting in her calf but this does not go above the knee. Overall she is feeling quite a bit better. Patient has history of cardiac issues has a pacemaker in and I suspect some underlying heart failure. However, the patient denies any breathing difficulties or shortness of breath at this time. However she is on oxygen 1 L at rest 2 L with activity. Right Lower Posterior Leg Pain Score (Numeric/FACES): 6 - Related Data Allergies Allergy/AdvReac Type Severity Reaction Status Date / Time Penicillins Allergy Rash Verified 06/23/20 20:51 Home Meds: Home Meds Phenytoin Sodium Extended [Dilantin] 330 mg PO BEDTIME 02/27/16 [History] Ferrous Sulfate 325 mg PO TID #30 tablet 05/12/18 [Rx] Cholecalciferol (Vitamin D3) [Vitamin D] 5,000 unit PO DAILY 06/22/20 [History] Folic Acid 1 mg PO DAILY 06/22/20 [History] Vitamin B Complex 1 each PO DAILY 06/22/20 [History] Vitamin E 1,000 unit PO DAILY 06/22/20 [History] Warfarin [Coumadin] 5 mg PO DAILY #10 tab 07/05/20 [Rx] Past Medical History HEENT History: Reports: Hard of Hearing, Other (See Below) Other HEENT History: Wears glasses, wisdom teeth extracted Cardiovascular History: Reports: Pacemaker Gastrointestinal History: Reports: Chronic Constipation 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: Musculoskeletal History: Reports: Arthritis, Other (See Below) Other Musculoskeletal History: arthritis in hands and feet Neurological History: Reports: Headaches, Chronic, Seizure, Other (See Below) Other Neuro History: ringing in the ears Endocrine/Metabolic History: Reports: None Hematologic History: Reports: Anemia, Blood Transfusion(s) - Infectious Disease History Infectious Disease History: Reports: Chicken Pox, Influenza, Measles, Novel Coronavirus - Past Surgical History HEENT Surgical History: Reports: None Cardiovascular Surgical History: Reports: Pacer GI Surgical History: Reports: None Neurological Surgical History: Reports: None Musculoskeletal Surgical History: Reports: None Social & Family History - Family History Family Medical History: No Pertinent Family History - Tobacco Use Tobacco Use Status *Q: Never Tobacco User Second Hand Smoke Exposure: No - Caffeine Use Caffeine Use: Reports: None - Recreational Drug Use Recreational Drug Use: No Review of Systems - Review of Systems Review Of Systems: See Below Constitutional: Reports: No Symptoms Respiratory: Reports: No Symptoms Cardiovascular: Reports: No Symptoms GI/Abdominal: Reports: No Symptoms Musculoskeletal: Reports: Leg Pain Skin: Reports: No Symptoms Neurological: Reports: No Symptoms Psychiatric: Reports: No Symptoms ED EXAM, GENERAL - Physical Exam Exam: See Below Exam Limited By: No Limitations General Appearance: Alert, No Apparent Distress Head: Atraumatic, Normocephalic Neck: Normal Inspection, Supple, Non-Tender, Full Range of Motion Respiratory/Chest: No Respiratory Distress, Lungs Clear, Normal Breath Sounds Cardiovascular: Regular Rate, Rhythm, No Edema, No Murmur GI/Abdominal: Normal Bowel Sounds, Soft, Non-Tender Back Exam: Normal Inspection. No: CVA Tenderness (L), CVA Tenderness (R) Extremities: Other (Examination of her right lower leg, the more tender 1, shows no redness or warmth however it is exquisitely tender with palpation in the posterior musculature. The tenderness does not involve the knee and certainly does not go up proximal to the knee she is got minimal discomfort with palpation on the left no other significant changes noted) Psychiatric: Normal Affect, Normal Mood #1 Interpretation EKG Date: 07/05/20 Rhythm: NSR Rate (Beats/Min): 87 [place]: Normal P-Wave: Present QRS: Normal ST-T: Normal QT: Normal Comparison: Change From Previous EKG (Improving decreased voltage in limb leads noted on 06/23/2020 otherwise no real significant changes) Course - Vital Signs Last Recorded V/S: Last Vital Signs Temp 36.6 C 07/05/20 12:56 Pulse 96 07/05/20 12:56 Resp 18 07/05/20 12:56 BP 144/76 H 07/05/20 12:56 Pulse Ox 95 07/05/20 12:56 - Orders/Labs/Meds Orders: Active Orders 24 hr Category Date Time Status EKG Documentation Completion [RC] STAT Care 07/05/20 13:32 Active Labs: Laboratory Tests 07/05/20 07/05/20 07/05/20 Range/Units 13:50 13:50 13:50 PT 11.3 (9.7-12.0) SECONDS INR 1.06 APTT 30.5 (21.7-31.4) SECONDS Sodium 140 (136-145) mEq/L Potassium 4.3 (3.5-5.1) mEq/L Chloride 102 (98-107) mEq/L Carbon Dioxide 28 (21-32) mEq/L Anion Gap 14.3 (5-15) BUN 12 (7-18) mg/dL Creatinine 0.7 (0.55-1.02) mg/dL Est Cr Clr Drug Dosing 59.15 mL/min Estimated GFR (MDRD) > 60 (>60) mL/min BUN/Creatinine Ratio 17.1 (14-18) Glucose 110 (80-115) mg/dL Calcium 9.5 (8.5-10.1) mg/dL Total Bilirubin 0.2 (0.2-1.0) mg/dL AST 90 H (15-37) U/L ALT 169 H (14-59) U/L Alkaline Phosphatase 109 (46-116) U/L Troponin I < 0.017 (0.00-0.056) ng/mL NT-Pro-B Natriuret Pep 70 (0-125) pg/mL Total Protein 7.8 (6.4-8.2) g/dl Albumin 2.5 L (3.4-5.0) g/dl Globulin 5.3 gm/dL Albumin/Globulin Ratio 0.5 L (1-2) Meds: Medications Discontinued Medications Generic Name Dose Route Start Last Admin Trade Name Freq PRN Reason Stop Dose Admin Warfarin Sodium 5 mg 07/05/20 17:13 Coumadin PO 07/05/20 17:14 ONETIME ONE - Re-Assessments/Exams Free Text/Narrative Re-Assessment/Exam: 07/05/20 17:15 The patient has developing venous thrombosis in the left lower leg this involves partial occlusion clot within the peroneal posterior tibial popliteal and distal superficial femoral vein. The patient should be started on anticoagulation. Unfortunately the patient is on Dilantin and is very stable with her seizures on Dilantin. Eliquis Xarelto or and factor X inhibitors are just not a reasonable option I discussed this with the on-call pharmacy and pharmacist and come to the conclusion probably her safest option is Coumadin. That Dilantin will still interfere with this however this can be monitored and adjusted to her Dilantin. I discussed the situation and the potential complications of starting oral Coumadin by itself and offered bridge therapy with Lovenox however the patient and the daughter do not think this would be a practical option. The patient will be started on Coumadin 5 mg a day the patient has follow-up with her provider over at [place] tomorrow and follow-up with the [place] [facility] can be arranged she should have a repeat INR done no later than Monday. Departure - Departure Time of Disposition: 17:17 Disposition: Home, Self-Care 01 Clinical Impression: DVT (deep venous thrombosis) - Discharge Information Referrals: Elisa Daniel PA-C [Primary Care Provider] - Forms: ED Department Discharge Additional Instructions: Return to the emergency room with any questions problems or concerning symptoms. You were given your first dose of Coumadin here in the emergency room. You have been given a prescription for #10 5 mg tablets start taking 1 of these daily around 5:00 every evening until instructed to do otherwise by your primary provider or the Coumadin clinic over at [place]. Follow-up with your provider at [place] tomorrow as scheduled and inform her that you have been started on Coumadin. Eat the same amount of vegetables every day. This is important for regulating your proper dose of Coumadin. Continue your other medications as before. Sepsis Event Note (ED) - Evaluation Sepsis Screening Result: No Definite Risk - Focused Exam Vital Signs: Vital Signs Temp Pulse Resp BP Pulse Ox 07/05/20 12:56 36.6 C 96 18 144/76 H 95 - My Orders Last 24 Hours: My Active Orders 07/05/20 13:32 EKG Documentation Completion [RC] STAT - Assessment/Plan Last 24 Hours: My Active Orders 07/05/20 13:32 EKG Documentation Completion [RC] STAT
--- NOTE | 2020-07-05 15:10 | US ---
Bilateral lower extremity deep venous ultrasound: Duplex and color Doppler evaluation was obtained of the right and left common femoral, proximal greater saphenous, superficial femoral, popliteal, posterior tibial and peroneal veins. Findings: Right lower extremity shows normal phasic flow, augmentation and compression. Left lower extremity shows partially occluding clot within the peroneal, posterior tibial, popliteal and distal superficial femoral vein. Other veins were not compressed. Middle, proximal and common femoral veins on the left side are patent. There is a clot being seen within the greater saphenous vein around the left ankle. Impression: 1. Incomplete deep venous thrombosis with the left lower leg. 2. Clot within the distal greater saphenous vein. Diagnostic code #5
--- NOTE | 2020-07-05 16:00 | CR ---
Chest: Portable view of the chest was obtained. Comparison: Prior chest x-ray of 06/27/20. Patchy areas of increased density are seen on both sides of the chest. These findings have minimally improved from prior exam. Pulmonary vessels do not appear as prominent as those seen on prior exam. Heart is mildly enlarged. Pacemaker is noted. Bony structures are grossly intact. Impression: 1. Slight decrease within bilateral pulmonary densities from prior exam. 2. Pulmonary vessels are improved. 3. Other findings are stable as noted above. Diagnostic code #3
[2020-07-05] MEDS ORDERED: Warfarin 5 MG Tab PO ONE (17:13)
== END 2020-07-05 17:35 | disposition home or self-care (01) ==
LOC: JD.ED 12:41
DX: I82.412 Acute embolism and thrombosis of left femoral vein (principal); I82.432 Acute embolism and thrombosis of left popliteal vein; I82.442 Acute embolism and thrombosis of left tibial vein; I82.452 Acute embolism and thrombosis of left peroneal vein; Z88.0 Allergy status to penicillin; Z79.899 Other long term (current) drug therapy; R06.02 Shortness of breath
CPT/HCPCS: 36415; 71045; 80053; 83880; 84484; 85610; 85730; 93005; 93970; 99285; A9270; 93010; 99284

== ENCOUNTER 2024-02-22 13:10 | Day surgery (SDC) | payer MEDICARE, BC ==
[2024-02-22] MEDS: Phenylephrine 2.5% Ophth Soln 2 ML Bot EYELF SCH (14:17)
[2024-02-22] MEDS: Lidocaine 1% PF 2 ML SDV INJECT SCH (14:26)
[2024-02-22] MEDS: Tetracaine HCl/PF 0.5% 4 ML Bottle EYEBOTH SCH (14:26)
[2024-02-22] MEDS: Polymyxin B/Trimethoprim 10 ML Bottle EYELF SCH (14:32)
[2024-02-22] MEDS: Brimonidine 0.2% Ophth Soln 5 ML Bottle EYELF SCH (14:36)
[2024-02-22] MEDS: Pilocarpine 4% Ophth Soln 15 ML Bot EYELF SCH (14:40)
[2024-02-22] MEDS: Cefuroxime 10 MG/ML SYRINGE EYELF SCH (14:40)
[2024-02-22] MEDS: Tropicamide 1% Ophth Soln 3 ML Bottle EYELF SCH (14:44)
[2024-02-22 16:11] VITALS: BP 155/87; PULSE 67
== END 2024-02-22 16:10 | disposition home or self-care (01) ==
LOC: JD.SDS 13:10
PROVIDERS: ATTEND Ophthalmology
DX: H25.812 Combined forms of age-related cataract, left eye (principal)
CPT/HCPCS: 66984; J0697; A9270-GY; J3490